=== PATIENT | female | born 1965 | race Caucasian/White ===

== ENCOUNTER 2020-01-28 08:39 | Outpatient (REF) | payer OTHER, SELFPAY ==
[2020-01-28 09:11] LABS: MANUAL DIFF FLAG NO
[2020-01-28 09:14] LABS: Basophils Percent Auto 0.8 % (0-2); Eosinophils Absolute Auto 0.1 X10*3/uL (0.0-0.4); Eosinophils Percent Auto 1.6 % (0-4); Imm Gran Abs Auto 0.01 X10*3/uL (0.00-0.03); Imm Gran Pct Auto 0.3 % (0.0-0.4); Lymphocytes Percent Auto 55.3 % (20-40); Mean Corpuscular HGB Conc 34.1 g/dl (31.0-35.0); Mean Corpuscular Hemoglobin 30.8 pg (27.0-33.0); Mean Corpuscular Volume 90.3 fL (80-98); Mean Platelet Volume 8.9 fL (9.4-12.3); Monocytes Absolute Auto 0.3 X10*3/uL (0.1-1.2); Monocytes Percent Auto 9.3 % (2-11); Neutrophils Absolute Auto 1.2 X10*3/uL (2.0-8.3); Neutrophils Percent Auto 32.7 % (45-73); Platelet Count 305 X10*3/uL (160-400); Red Blood Count 4.54 X10*6/uL (4.20-5.50); Red Cell Distribution Width 12.7 % (11.0-16.0); White Blood Count 3.7 X10*3/uL (4.8-10.8)
[2020-01-28 09:43] LABS: Alanine Aminotransferase 11 U/L (0-31); Albumin Level 4.4 g/dL (3.5-5.0); Alkaline Phosphatase 60 U/L (39-117); Anion Gap 11 (12-20); Aspartate Amino Transferase 15 U/L (5-31); Bilirubin Total 0.8 mg/dL (0.0-1.0); Blood Urea Nitrogen 14 mg/dL (9-16); Calcium 9.1 mg/dL (8.4-10.2); Carbon Dioxide 28 mmol/L (22-29); Chloride 105 mmol/L (96-108); Cholesterol 255 mg/dL; Estimated Glomerular Filt Rate > 60; Glucose Fasting 116 mg/dL (60-99); HDL Cholesterol 51 mg/dL; LDL Cholesterol Calculated 158 mg/dl; Potassium 4.6 mmol/l (3.3-5.1); Sodium 139 mmol/L (135-145); Total Protein 7.4 g/dL (6.5-8.0); Triglycerides 231 mg/dL
[2020-01-28 10:07] LABS: Vitamin D 25-OH Total 29.7 ng/mL (>30)
== END 2020-01-28 08:40 | disposition home or self-care (01) ==
LOC: HO.LAB 08:39
PROVIDERS: Absent Provider Internal Medicine Medical Oncology; PCP Internal Medicine; Visit Provider Internal Medicine
DX: E78.00 Pure hypercholesterolemia, unspecified (principal); K21.9 Gastro-esophageal reflux disease without esophagitis; E66.3 Overweight; D72.819 Decreased white blood cell count, unspecified; Z00.00 Encounter for general adult medical examination without abnormal findings
CPT/HCPCS: 36415; 80053; 80061; 82306; 85025

== ENCOUNTER 2020-02-02 10:16 | Outpatient (REF) | payer OTHER, SELFPAY ==
[2020-02-02 10:40] LABS: COVID-19 Test Negative (Negative); IDNOW Serial# 55D5AD1C
== END 2020-02-02 10:17 | disposition home or self-care (01) ==
LOC: HO.EMPCOV 10:16
PROVIDERS: PCP Internal Medicine; Visit Provider Internal Medicine
DX: Z20.828 Contact with and (suspected) exposure to other viral communicable diseases (principal)
CPT/HCPCS: 87635; C9803

== ENCOUNTER 2020-02-18 09:21 | Outpatient (REF) | payer OTHER, SELFPAY ==
[2020-02-18 09:40] LABS: COVID-19 Test Negative (Negative)
== END 2020-02-18 09:22 | disposition home or self-care (01) ==
LOC: HO.EMPCOV 09:21
PROVIDERS: PCP Internal Medicine; Visit Provider Internal Medicine
DX: Z20.822 Contact with and (suspected) exposure to COVID-19 (principal)
CPT/HCPCS: 36415; 87635; C9803

== ENCOUNTER 2020-03-03 14:03 | Outpatient (REF) | payer OTHER, SELFPAY ==
[2020-03-03 14:29] LABS: MANUAL DIFF FLAG NO
[2020-03-03 14:31] LABS: Basophils Percent Auto 0.9 % (0-2); Eosinophils Percent Auto 0.7 % (0-4); Hematocrit 38.7 % (37-47); Imm Gran Abs Auto 0.01 X10*3/uL (0.00-0.03); Imm Gran Pct Auto 0.2 % (0.0-0.4); Lymphocytes Absolute Auto 2.2 X10*3/uL (1.2-4.9); Lymphocytes Percent Auto 51.5 % (20-40); Mean Corpuscular HGB Conc 33.6 g/dl (31.0-35.0); Mean Corpuscular Hemoglobin 30.4 pg (27.0-33.0); Mean Corpuscular Volume 90.6 fL (80-98); Mean Platelet Volume 8.7 fL (9.4-12.3); Monocytes Absolute Auto 0.4 X10*3/uL (0.1-1.2); Monocytes Percent Auto 8.2 % (2-11); Neutrophils Absolute Auto 1.6 X10*3/uL (2.0-8.3); Neutrophils Percent Auto 38.5 % (45-73); Platelet Count 327 X10*3/uL (160-400); Red Blood Count 4.27 X10*6/uL (4.20-5.50); Red Cell Distribution Width 12.6 % (11.0-16.0); White Blood Count 4.3 X10*3/uL (4.8-10.8)
== END 2020-03-03 14:04 | disposition home or self-care (01) ==
LOC: HO.LAB 14:03
PROVIDERS: PCP Internal Medicine; Visit Provider Surgery
DX: R10.32 Left lower quadrant pain (principal)
CPT/HCPCS: 36415; 85025

== ENCOUNTER 2020-03-31 07:40 | Outpatient (REF) | payer OTHER, SELFPAY ==
--- NOTE | ~2020-03-31 | MM_ITS ---
EXAMINATION: MM SCREENING DIGITAL BREAST TOMOSYNTHESIS, BILATERAL CLINICAL INFORMATION: Screening. Asymptomatic. The lifetime risk of breast cancer based on the Tyrer-Cuzick Model is 10%. COMPARISON: Mammography: 06/06/2018, 05/07/2017, 03/06/2016 TECHNIQUE: Digital breast tomosynthesis is performed in both the craniocaudal and mediolateral oblique views along with computer-aided detection (CAD). Synthesized 2D images are generated from the tomosynthesis. FINDINGS: There are scattered areas of fibroglandular density (ACR BI-RADS breast composition Category b). There are no significant masses, abnormal calcifications, or other abnormalities. There is probable dermal lesion again seen overlying posterior medial left breast and intramammary node overlying the posterior 3:00 right breast. No significant changes. MM/MM tomosynthesis screening BI IMPRESSION: No mammographic evidence of malignancy. ASSESSMENT: BI-RADS 2: Benign RECOMMENDATION: Routine annual mammography screening. This patient's information was entered into a reminder system with a target due date for their next mammogram.
== END 2020-03-31 07:41 | disposition home or self-care (01) ==
LOC: HO.MAMMO 07:40
PROVIDERS: PCP Internal Medicine; Visit Provider Internal Medicine
DX: Z12.31 Encounter for screening mammogram for malignant neoplasm of breast (principal)
CPT/HCPCS: 77063; 77067

== ENCOUNTER 2020-04-11 13:56 | Emergency (ER) | payer OTHER, SELFPAY ==
--- NOTE | ~2020-04-11 | CT_ITS ---
EXAMINATION: CT ABDOMEN AND PELVIS WITH CONTRAST CLINICAL INFORMATION: Bilateral lower quadrant pain COMPARISON: Baseline 01/03/2018 TECHNIQUE: Multidetector volumetric images were obtained from the superior aspect of the liver through the pubic symphysis following administration 85 mL of Omnipaque 350 intravenous contrast. Sagittal and coronal reformatted images were obtained on the technologist's workstation. Oral contrast: No This CT examination was performed using dose optimization techniques as appropriate, variously including the following: *Automated exposure control *Adjustment of mA and/or kV according to patient size (this includes techniques or standardized protocols for targeted exams where dose is matched to indication/reason for exam; i.e. extremities or head) *Use of iterative reconstruction technique DLP: 552 mGy-cm FINDINGS: LUNG BASES: The visualized lung bases are unremarkable. 6.7 x 5.4 cm lobulated cystic lesion in the right cardiophrenic angle region most consistent with a pericardial cyst. Similar finding noted on baseline exam. LIVER, GALLBLADDER, AND BILIARY TREE: The liver is normal in size, shape, and attenuation. No focal hepatic lesion or biliary ductal dilatation is present. The gallbladder is unremarkable with no evidence of radiopaque gallstones, gallbladder wall thickening, or obvious pericholecystic inflammatory changes. PANCREAS: Unremarkable. SPLEEN: Unremarkable. ADRENAL GLANDS: Unremarkable. KIDNEYS AND URETERS: The kidneys are normal in size, shape, and attenuation. No hydronephrosis, hydroureter, or calculi seen. No perinephric stranding. BLADDER: Unremarkable. GASTROINTESTINAL TRACT: Large diverticula noted throughout the colon. No definite acute inflammatory changes measurable. No small bowel pathology. No fluid collection. ABDOMINAL WALL: No significant hernia is appreciated. LYMPH NODES: Normal. VASCULAR: Unremarkable. PELVIC VISCERA: Unremarkable. OSSEOUS STRUCTURES: Unremarkable. CT/CT abdomen pelvis w con IMPRESSION: Diverticulosis also be pronounced on the colon. No definite acute inflammatory changes appreciated. Correlate clinically. 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
[2020-04-11 14:05] VITALS: BP 171/94; PULSE 103; RESP 18; TEMP 37.2; O2SAT 99; BMI 57.9
--- NOTE | 2020-04-11 14:38 | ED.ABDPAIN ---
HPI - Abdominal Pain General Chief Complaint: Abdominal Pain Stated Complaint: ABD PAIN Time Seen by Provider: 04/11/20 14:23 Source: patient Mode of arrival: ambulatory Limitations: no limitations History of Present Illness HPI narrative: Patient comes emergency room complaining of abdominal pain for the last 2 hours, which is worse is in the lower quadrants bilaterally. Patient states that over the weekend she has had some mild abdominal discomfort, loose stools, nausea, no vomiting. Patient states that earlier this year in February, she was empirically treated for diverticulitis. Patient denies respiratory or UTI symptoms. No fever or chills. MD elicited complaint: abdominal pain Related Data Previous Rx's Medication Instructions Recorded metronidazole 500 mg tablet 500 mg PO Q8H #21 tab 03/03/20 sulfamethoxazole 800 1 tab PO Q12H #20 tab 03/03/20 mg-trimethoprim 160 mg tablet dicyclomine 20 mg PO TID #14 tab 04/11/20 tramadol 50 mg PO BID PRN #10 tab 04/11/20 Allergies Allergy/AdvReac Type Severity Reaction Status Date / Time Penicillins [PENICILLINS] Allergy Severe ANAPHYLAXIS Unverified 10/23/19 15:15 penicillin V Allergy Unknown anaphylaxis Verified 06/16/19 00:00 Review of Systems Review of Systems Constitutional : No Weight loss, No Fever, No Chills, No Night Sweats, No Fatigue, No Malaise ENT/Mouth : No Hearing loss, No Ear Pain, No Nasal Congestion, No Sinus Pain, No Hoarseness, No sore throat, No Rhinorrhea, No Swallowing Difficulty Eyes: No Eye Pain, No Swelling, No Redness, No Foreign Body, No Discharge, No Vision Changes Cardiovascular : No Chest Pain, No SOB, No Dyspnea on Exertion, No Orthopnea, No Edema, No Palpitations Respiratory : No Cough, No Sputum, No Wheezing, No Smoke Exposure, No Dyspnea Gastrointestinal : Complaining of Nausea, No Vomiting, complaining of loose stools, No Constipation, complaining of bilateral lower quadrant pain, No Hematochezia, No Melena Genitourinary : no irregular bleeding, No Dysuria, No Urinary Frequency, No Hematuria, No Urinary Incontinence, No Urgency, No Flank Pain, No Urinary Flow Changes, No Hesitancy Musculoskeletal : No joint pain, No Myalgias, No Joint Swelling Skin : No Skin Lesions, No rash Neuro : No Weakness, No Numbness, No Paresthesias, No Loss of Consciousness, No Dizziness, No Headache Psych : No Anxiety/Panic, No Depression, No SI/HI/AH/VH, No Social Issues, Heme/Lymph: No Bruising, No Bleeding,No Lymphadenopathy Endocrine : No Polyuria, No Polydipsia, No Temperature Intolerance Physical Exam Vital Signs: Vital Signs: Last Vital Signs Temp 98.9 F 04/11/20 14:05 Pulse 84 04/11/20 14:55 Resp 18 04/11/20 14:55 BP 148/72 H 04/11/20 14:55 Pulse Ox 97 04/11/20 14:55 Body Mass Index 57.9 Appearance: Alert. Oriented X3. Mild distress, in pain Eyes: Pupils equal, round and reactive to light. ENT: Pharynx normal. Neck: Normal inspection. Neck supple. No lymph nodes noted. No crepitus CVS: Normal heart rate and rhythm. Pulses normal. Normal S1 and S2 Respiratory: No respiratory distress. Breath sounds normal. No Wheezing. No rales Abdomen: Soft tender to palpation over the bilateral lower quadrants, worse on the left lower quadrant, No rigidity. No distention. Skin: Skin warm and dry. Normal skin color. Normal skin turgor. Extremities: No lower extremity edema. No lower extremity edema. No Lacerations. No Rash Neuro: Oriented X 3. No motor deficit. No sensory deficit. Moving all extermities. No slurred speech. Course Course Course Narrative: discussed the labs and imaging with the patient, no acute findings. Patient's white blood cell count is 4.[address] scan shows no acute findings. I discussed with the patient that this may be early diverticulitis versus an early SBO given her past medical history of surgeries. Sepsis is not suspected. MDM - Abdominal Pain Lab Data Result diagrams: 04/11/20 14:39 04/11/20 14:39 Labs: Lab Results 04/11/20 04/11/20 04/11/20 Range/Units 14:39 14:39 14:39 WBC 4.6 L (4.8-10.8) X10*3/uL RBC 4.46 (4.20-5.50) X10*6/uL Hgb 13.9 (12.0-16.0) g/dl Hct 39.7 (37-47) % MCV 89.0 (80-98) fL MCH 31.2 (27.0-33.0) pg MCHC 35.0 (31.0-35.0) g/dl RDW 12.7 (11.0-16.0) % Plt Count 299 (160-400) X10*3/uL MPV 8.9 L (9.4-12.3) fL Immature Gran % (Auto) 0.4 (0.0-0.4) % Neut % (Auto) 49.6 (45-73) % Lymph % (Auto) 40.1 H (20-40) % [place] % (Auto) 8.8 (2-11) % Eos % (Auto) 0.9 (0-4) % Baso % (Auto) 0.2 (0-2) % Lymph # (Auto) 1.9 (1.2-4.9) X10*3/uL [place] # (Auto) 0.4 (0.1-1.2) X10*3/uL Eos # (Auto) 0.0 (0.0-0.4) X10*3/uL Baso # (Auto) 0.0 (0.0-0.2) X10*3/uL Abs Immat Gran (auto) 0.02 (0.00-0.03) X10*3/uL Absolute Neuts (auto) 2.3 (2.0-8.3) X10*3/uL Absolute Nucleated RBC 0.000 (0.0-0.012) X10*3/uL Nucleated RBC % (auto) 0.0 (0.0-0.2) /100WBC Sodium 141 (135-145) mmol/L Potassium 3.8 (3.3-5.1) mmol/L Chloride 106 (96-108) mmol/L Carbon Dioxide 25 (22-29) mmol/L Anion Gap 14 (12-20) BUN 13 (9-16) mg/dL Creatinine 0.82 (0.5-1.4) mg/dL Estim Creat Clear Calc 122.0 Estimated GFR > 60 Random Glucose 116 H (60-115) mg/dL Calcium 9.0 (8.4-10.2) mg/dL Total Bilirubin 0.8 (0.0-1.0) mg/dL Direct Bilirubin 0.3 (0.0-0.5) mg/dL AST 15 (5-31) U/L ALT 13 (0-31) U/L Alkaline Phosphatase 80 D (39-117) U/L Total Protein 7.4 (6.5-8.0) g/dL Albumin 4.5 (3.5-5.0) g/dL Lipase 33 (8-78) U/L Urine Color Urine Appearance Urine pH (5.0-8.0) Ur Specific [place] (1.005-1.025) Urine Protein (NEG-TRACE) MG/DL Urine Glucose (UA) (NEG) MG/DL Urine Ketones (NEG) MG/DL Urine Blood (NEG) Urine Nitrite (NEG) Ur Leukocyte Esterase (NEG) 04/11/20 Range/Units 16:01 WBC (4.8-10.8) X10*3/uL RBC (4.20-5.50) X10*6/uL Hgb (12.0-16.0) g/dl Hct (37-47) % MCV (80-98) fL MCH (27.0-33.0) pg MCHC (31.0-35.0) g/dl RDW (11.0-16.0) % Plt Count (160-400) X10*3/uL MPV (9.4-12.3) fL Immature Gran % (Auto) (0.0-0.4) % Neut % (Auto) (45-73) % Lymph % (Auto) (20-40) % [place] % (Auto) (2-11) % Eos % (Auto) (0-4) % Baso % (Auto) (0-2) % Lymph # (Auto) (1.2-4.9) X10*3/uL [place] # (Auto) (0.1-1.2) X10*3/uL Eos # (Auto) (0.0-0.4) X10*3/uL Baso # (Auto) (0.0-0.2) X10*3/uL Abs Immat Gran (auto) (0.00-0.03) X10*3/uL Absolute Neuts (auto) (2.0-8.3) X10*3/uL Absolute Nucleated RBC (0.0-0.012) X10*3/uL Nucleated RBC % (auto) (0.0-0.2) /100WBC Sodium (135-145) mmol/L Potassium (3.3-5.1) mmol/L Chloride (96-108) mmol/L Carbon Dioxide (22-29) mmol/L Anion Gap (12-20) BUN (9-16) mg/dL Creatinine (0.5-1.4) mg/dL Estim Creat Clear Calc Estimated GFR Random Glucose (60-115) mg/dL Calcium (8.4-10.2) mg/dL Total Bilirubin (0.0-1.0) mg/dL Direct Bilirubin (0.0-0.5) mg/dL AST (5-31) U/L ALT (0-31) U/L Alkaline Phosphatase (39-117) U/L Total Protein (6.5-8.0) g/dL Albumin (3.5-5.0) g/dL Lipase (8-78) U/L Urine Color YELLOW Urine Appearance CLEAR Urine pH 5.5 (5.0-8.0) Ur Specific [place] 1.010 (1.005-1.025) Urine Protein NEG (NEG-TRACE) MG/DL Urine Glucose (UA) NEG (NEG) MG/DL Urine Ketones NEG (NEG) MG/DL Urine Blood NEG (NEG) Urine Nitrite NEG (NEG) Ur Leukocyte Esterase NEG (NEG) Imaging Data CT scan - abdomen: Radiologist's impression: FINDINGS: LUNG BASES: The visualized lung bases are unremarkable. 6.7 x 5.4 cm lobulated cystic lesion in the right cardiophrenic angle region most consistent with a pericardial cyst. Similar finding noted on baseline exam. LIVER, GALLBLADDER, AND BILIARY TREE: The liver is normal in size, shape, and attenuation. No focal hepatic lesion or biliary ductal dilatation is present. The gallbladder is unremarkable with no evidence of radiopaque gallstones, gallbladder wall thickening, or obvious pericholecystic inflammatory changes. PANCREAS: Unremarkable. SPLEEN: Unremarkable. ADRENAL GLANDS: Unremarkable. KIDNEYS AND URETERS: The kidneys are normal in size, shape, and attenuation. No hydronephrosis, hydroureter, or calculi seen. No perinephric stranding. BLADDER: Unremarkable. GASTROINTESTINAL TRACT: Large diverticula noted throughout the colon. No definite acute inflammatory changes measurable. No small bowel pathology. No fluid collection. ABDOMINAL WALL: No significant hernia is appreciated. LYMPH NODES: Normal. VASCULAR: Unremarkable. PELVIC VISCERA: Unremarkable. OSSEOUS STRUCTURES: Unremarkable. CT/CT abdomen pelvis w con IMPRESSION: Diverticulosis also be pronounced on the colon. No definite acute inflammatory changes appreciated. Correlate clinically. 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 Discharge Plan Discharge Clinical Impression: Left lower quadrant pain Patient Disposition: Home, Self-Care Instructions: Abdominal Pain (ED) Additional Instructions: Please follow-up with your primary care physician tomorrow. If you have any worsening or new symptoms, please return to the emergency room or call 911 Prescriptions: New dicyclomine 20 mg tablet 20 mg PO TID Qty: 14 RF: 0 tramadol 50 mg tablet 50 mg PO BID PRN (Reason: pain) Qty: 10 RF: 0 No Action metronidazole 500 mg tablet 500 mg PO Q8H Qty: 21 RF: 0 sulfamethoxazole-trimethoprim [Bactrim DS] 800-160 mg tablet 1 tab PO Q12H Qty: 20 RF: 0 PMFSH Past Medical History Medical History (Updated 04/11/20 @ 16:40 by Rola Briones MD) Diverticula of intestine Surgical History (Updated 04/11/20 @ 14:41 by Rola Briones MD) H/O: hysterectomy History of cholecystectomy Hx of appendectomy Social History Social History Alcohol intake: never Smoking Status: Never smoker Use of substances other than those prescribed or required for medical reasons: No Advance Directives: No Advance Directives Information Provided: Yes
[2020-04-11 14:40] VITALS: RESP 20
[2020-04-11] MEDS: Morphine Sulfate 4 MG/ML CARTRIDGE IVPUSH (14:40)
[2020-04-11] MEDS: ondansetron HCL 4 MG/2 ML VIAL IVPUSH (14:40)
[2020-04-11] MEDS: 0.9 % Sodium Chloride 1,000 ML 999 ML IVCONT (14:40)
[2020-04-11 14:48] LABS: MANUAL DIFF FLAG NO
[2020-04-11 14:50] LABS: Basophils Percent Auto 0.2 % (0-2); Eosinophils Percent Auto 0.9 % (0-4); Hematocrit 39.7 % (37-47); Hemoglobin 13.9 g/dl (12.0-16.0); Imm Gran Abs Auto 0.02 X10*3/uL (0.00-0.03); Imm Gran Pct Auto 0.4 % (0.0-0.4); Lymphocytes Absolute Auto 1.9 X10*3/uL (1.2-4.9); Lymphocytes Percent Auto 40.1 % (20-40); Mean Corpuscular Hemoglobin 31.2 pg (27.0-33.0); Mean Platelet Volume 8.9 fL (9.4-12.3); Monocytes Absolute Auto 0.4 X10*3/uL (0.1-1.2); Monocytes Percent Auto 8.8 % (2-11); Neutrophils Absolute Auto 2.3 X10*3/uL (2.0-8.3); Neutrophils Percent Auto 49.6 % (45-73); Platelet Count 299 X10*3/uL (160-400); Red Blood Count 4.46 X10*6/uL (4.20-5.50); Red Cell Distribution Width 12.7 % (11.0-16.0); White Blood Count 4.6 X10*3/uL (4.8-10.8)
[2020-04-11 14:55] VITALS: BP 148/72; PULSE 84; RESP 18; O2SAT 97
[2020-04-11 15:15] LABS: Lipase 33 U/L (8-78)
[2020-04-11 15:16] LABS: Alanine Aminotransferase 13 U/L (0-31); Albumin Level 4.5 g/dL (3.5-5.0); Alkaline Phosphatase 80 U/L (39-117); Anion Gap 14 (12-20); Aspartate Amino Transferase 15 U/L (5-31); Bilirubin Direct 0.3 mg/dL (0.0-0.5); Bilirubin Total 0.8 mg/dL (0.0-1.0); Blood Urea Nitrogen 13 mg/dL (9-16); Carbon Dioxide 25 mmol/L (22-29); Chloride 106 mmol/L (96-108); Estimated Glomerular Filt Rate > 60; Glucose Random 116 mg/dL (60-115); Potassium 3.8 mmol/L (3.3-5.1); Sodium 141 mmol/L (135-145); Total Protein 7.4 g/dL (6.5-8.0)
[2020-04-11] MEDS: iohexoL 350 MG/ML 75 ML INFUS..BTL IV (15:48)
--- NOTE | 2020-04-11 15:58 | PC.NURSE ---
return from ct scan, pain worsening again, provider aware. ambulating to bathroom w steady gait for ua spec.
[2020-04-11 16:11] LABS: Glucose Urine UA NEG (NEG); Leukocyte Esterase Urine NEG (NEG); Nitrite Urine NEG (NEG); PH 5.5 (5.0-8.0); Urine Blood NEG (NEG); Urine Ketones NEG (NEG); Urine Protein NEG (NEG-TRACE)
[2020-04-11 16:12] LABS: Appearance Urine CLEAR; Color Urine YELLOW
[2020-04-11] MEDS: HYDROmorphone HCl 1 MG/ML SYRINGE IVPUSH (16:29)
== END 2020-04-11 17:05 | disposition home or self-care (01) ==
PROVIDERS: Emergency Provider Emergency Medicine; PCP Internal Medicine
DX: R10.32 Left lower quadrant pain (principal); Z79.899 Other long term (current) drug therapy
CPT/HCPCS: 36415; 74177; 80048; 80076; 81003; 83690; 85025; 96365; 96375; 99284; J1170; J2270; J2405; Q9967

== ENCOUNTER → 2020-04-20 13:51 | Outpatient (BNVA) | payer OTHER, SELFPAY | PROVIDERS: PCP Internal Medicine; Visit Provider Internal Medicine Gastroenterology ==

== ENCOUNTER 2020-06-04 06:20 | Day surgery (SDC) | payer OTHER, SELFPAY ==
[2020-06-01 08:33] VITALS: BMI 26.4
--- NOTE | 2020-06-03 09:28 | HO.ANESPROP2 ---
Documented by User: Zulma Flores 06/03/20 09:29 HPI - Anesthesia Eval Consult details Narrative: 55yo F for Colonoscopy PMFSH Active Problems Active Problems: All Active Problems (Updated 06/01/20 @ 08:39 by Savanna Mccallum) Left lower quadrant pain (Acute) Diverticulosis (Acute) Colon cancer screening (Acute) Change in bowel habits (Acute) Past Medical History Medical History COVID-19 vaccine administered Diverticula of intestine Family history of adverse effect to anesthesia History of diverticulosis History of endometrial biopsy History of palpitations History of postoperative nausea and vomiting Family History Family History Mother Diverticulosis HTN (hypertension) Father HTN (hypertension) Brother HTN (hypertension) Surgical History Surgical History H/O colonoscopy H/O: H/O: hysterectomy History of cholecystectomy Hx of appendectomy Social History Social History Household Members: Spouse and Children Are you a primary complex care nurse practitioner to a significant other at home: No Do you presently have visiting nurse or other home services: No Alcohol intake: current Alcohol intake frequency: holidays/special occasions only Smoking Status: Never smoker Use of substances other than those prescribed or required for medical reasons: No Have you been hit, kicked, punched, or otherwise hurt by someone within the past year? If so, by whom?: No Advance Directives Information Provided: No Recently lost weight without trying: No Meds Allergies Allergy/AdvReac Type Severity Reaction Status Date / Time Penicillins [PENICILLINS] Allergy Severe ANAPHYLAXIS Verified 06/04/20 06:48 levofloxacin [From Levaquin] Allergy Intermediate rash Verified 06/04/20 06:48 sulfamethoxazole Allergy Intermediate rash Verified 06/04/20 06:48 [From Bactrim] trimethoprim [From Bactrim] Allergy Intermediate rash Verified 06/04/20 06:48 Home Medications Medication Instructions Recorded Confirmed Last Taken Type famotidine [Pepcid AC] 20 mg PO DAILY PRN 06/01/20 06/01/20 Unknown History melatonin 5 mg PO BEDTIME 06/01/20 06/01/20 Unknown History Exam Exam Date and Time: June 03, [id number] Height,Weight and Vital Signs: Height 5 ft 5 in Weight 72.121 kg Assessment and Plan Assessment Anesthesia Assessment: Chart Reviewed Documented by User: Eunice Paul 06/04/20 07:46 [facility] Past Medical History Medical History COVID-19 vaccine administered Diverticula of intestine Family history of adverse effect to anesthesia History of diverticulosis History of endometrial biopsy History of palpitations History of postoperative nausea and vomiting Family History Family History Mother Diverticulosis HTN (hypertension) Father HTN (hypertension) Brother HTN (hypertension) Surgical History Surgical History H/O colonoscopy H/O: H/O: hysterectomy History of cholecystectomy Hx of appendectomy Social History Social History Household Members: Spouse and Children Are you a primary complex care nurse practitioner to a significant other at home: No Do you presently have visiting nurse or other home services: No Alcohol intake: current Alcohol intake frequency: holidays/special occasions only Smoking Status: Never smoker Use of substances other than those prescribed or required for medical reasons: No Have you been hit, kicked, punched, or otherwise hurt by someone within the past year? If so, by whom?: No Advance Directives Information Provided: No Recently lost weight without trying: No Meds Allergies Allergy/AdvReac Type Severity Reaction Status Date / Time Penicillins [PENICILLINS] Allergy Severe ANAPHYLAXIS Verified 06/04/20 06:48 levofloxacin [From Levaquin] Allergy Intermediate rash Verified 06/04/20 06:48 sulfamethoxazole Allergy Intermediate rash Verified 06/04/20 06:48 [From Bactrim] trimethoprim [From Bactrim] Allergy Intermediate rash Verified 06/04/20 06:48 Home Medications Medication Instructions Recorded Confirmed Last Taken Type famotidine [Pepcid AC] 20 mg PO DAILY PRN 06/01/20 06/01/20 Unknown History melatonin 5 mg PO BEDTIME 06/01/20 06/01/20 Unknown History Exam Airway Mallampati Class: I TM Dist: >3cm Loose/Missing/Broken Teeth: No Heart: RRR Lungs: CTA Assessment and Plan Assessment Anesthesia Assessment: Anesthesia Plan Discussed and Chart Reviewed Final Anesthetic Review NPO: Yes ASA Class: II Final Preanesthetic Review: Meds/Allgs Chart Reviewed, Consent Obtained/Reviewed and Anes Risks/Benef Reviewed Patient Risk: Low Procedure Risk: Low Anesthetic Plan Anesthetic Plan: MAC: Disposition: Standard PACU
[2020-06-04 06:49] VITALS: BP 120/79; PULSE 98; RESP 18; TEMP 36.7; O2SAT 95
[2020-06-04] MEDS: Lactated Ringers 1,000 ML 100 ML IVCONT (07:01)
--- NOTE | 2020-06-04 07:11 | P.OP_ITS ---
Operative Note Operative Note Date of Service: 06/04/20 Narrative: Pre-op diagnosis: Colon cancer screening, change in bowel habits, abnormal CT scan of colon Post-op diagnosis: other (Diverticulosis, hemorrhoids) Procedure: COLONOSCOPY TO CECUM/TI WITH BIOPSIES Consent: Indications for the procedure and potential complications of bleeding, perforation, reaction to medications and missed diagnosis were discussed with the patient and informed consent was obtained. Instrument: Olympus PCF H 190 L variable stiffness pediatric colonoscope Monitoring: Vital signs and clinical assessment, intermittent blood pressure monitoring, continuous EKG monitoring, Pulse oximetry and Carbon Dioxide monitoring were done throughout the procedure. Colon withdrawl time was 17 minutes. Procedure: The patient was placed in the left lateral decubitis position and pre-procedure medications were administered. After a digital rectal examination of the ano-rectum, the video colonoscope was inserted into the rectum and advanced through the colon to the cecum. The colonoscope was slowly withdrawn in a retrograde panoramic fashion and the colon mucosa was carefully examined including a retroflexed view of the rectum. Findings and interventions are described below. Procedure Difficulty: There was a sharp turn at 35 to 40 cms which was navigated with some difficulty. No maneuvers were required Findings: Terminal Ileum: Distal 10 cms was examined and appeared normal - random biopsies were obtained Cecum: Normal Ascending Colon: Normal Transverse Colon: Normal Descending Colon: Normal Sigmoid Colon: Moderate diverticulosis Rectum: Normal Ano-rectum: Small internal hemorrhoids Colon preparation: Excellent Impression and Post Procedure Diagnosis: Colonoscopy Findings: No polyps were detected. Normal TI - random biopsies were obtained. Random biopsies obtained from right and left colon. Moderate diverticulosis seen in the []colon Moderate hemorrhoids on retroflexed exam. Plan: Await pathology results A letter will be sent to the patient with biopsy results. Repeat Colonoscopy interval based on path results - in 10 years if biopsies are normal. Above findings were reviewed with the patient and diverticulosis handouts were given in the discharge area Surgeon: Zenaida Abrams MD Anesthesia: MAC (Dr Paul) Insurance Examining Clerk: Francisco Robert Estimated blood loss (mL): 0 Pathology: other (A- IT BXS R/O IBD B- RIGHT COLON BXS C- LEFT SIDE COLON BXS) Condition: stable Disposition: PACU
--- NOTE | 2020-06-04 07:11 | MHC.SHP ---
Pre-Procedural Eval Section A The patient is an INPATIENT: No The History & Physical has been completed within 30 days and I have reviewed it.: No Section B Chief Complaint: Screening Details of Present Illness: Colon Cancer screening, history of abdominal pain and diarrhea, abnormal CT scan of the colon Relevant Family History (Specify if Yes): No Relevant Social History: None Present Medications: see Short Stay Collaborative assessment Medical History: Significant History (Change in bowel habits) History of Previous Operations: Relevant previous surgery/procedure and date(s) (H/O: H/O: hysterectomy History of cholecystectomy Hx of appendectomy) Allergies: Allergies Allergy/AdvReac Type Severity Reaction Status Date / Time Penicillins [PENICILLINS] Allergy Severe ANAPHYLAXIS Verified 06/04/20 06:48 levofloxacin [From Levaquin] Allergy Intermediate rash Verified 06/04/20 06:48 sulfamethoxazole Allergy Intermediate rash Verified 06/04/20 06:48 [From Bactrim] trimethoprim [From Bactrim] Allergy Intermediate rash Verified 06/04/20 06:48 Review of Systems Sugical H&P ROS: Negative: Constitution, Cardiovascular and Respiratory and Yes, Specify: Gastrointestinal (change in bowel habits) Exam Surgical H&P Exam: Normal: Heart, Normal: Lungs, Normal: Extremities and Normal: Abdomen Plan Diagnosis/Plan: Unchanged I have reviewed the history and physical and performed a pertinent physical examination on my patient. No changes have occurred unless specified.
[2020-06-04 08:05] VITALS: BP 118/68; PULSE 86; RESP 18; TEMP 37.3; O2SAT 98
[2020-06-04 08:20] VITALS: BP 127/78; PULSE 79; RESP 18; TEMP 36.9; O2SAT 98
== END 2020-06-04 08:50 | disposition home or self-care (01) ==
PROVIDERS: PCP Internal Medicine; Visit Provider Internal Medicine Gastroenterology
PROC: 0DJD8ZZ Inspection of Lower Intestinal Tract, Via Natural or Artificial Opening Endoscopic (ICD-10-PCS; CPT 45378; principal; 2020-06-04 07:30)
DX: Z12.11 Encounter for screening for malignant neoplasm of colon (principal); K57.30 Diverticulosis of large intestine without perforation or abscess without bleeding; K64.8 Other hemorrhoids; Z90.49 Acquired absence of other specified parts of digestive tract; Z79.899 Other long term (current) drug therapy; Z88.0 Allergy status to penicillin; Z88.2 Allergy status to sulfonamides
CPT/HCPCS: 45380; 88305

== ENCOUNTER → 2020-06-16 09:25 | Outpatient (BNVA) | payer OTHER, SELFPAY | PROVIDERS: PCP Internal Medicine; Visit Provider Obstetrics & Gynecology | DX: Z01.419 Encounter for gynecological examination (general) (routine) without abnormal findings (principal); R10.32 Left lower quadrant pain; N95.2 Postmenopausal atrophic vaginitis | CPT/HCPCS: 81003 ==

== ENCOUNTER 2020-06-23 15:58 | Outpatient (REF) | payer OTHER, SELFPAY ==
--- NOTE | ~2020-06-23 | US_ITS ---
EXAMINATION: US PELVIS COMPLETE US TRANSVAGINAL . CLINICAL INFORMATION: Left lower quadrant pain. History of hysterectomy. COMPARISON: Ultrasound pelvis 07/16/2013. TECHNIQUE: Transabdominal and transvaginal vaginal imaging of pelvis is performed. FINDINGS: The uterus has been surgically removed. The right ovary measures 2.5 x 1.6 x 1.7 cm and volume 3.0 mL. No focal lesion is seen. Previously, the right ovary measured 1.9 x 1.4 x 2.1 cm. The left ovary measures 1.9 x 1.6 x 1.2 cm and volume 2.0 mL. No focal lesion is seen. Previously, the left ovary measured 2.2 x 1.3 x 1.6 cm. There is no adnexal mass. There is no free fluid. US/US pelvic complete IMPRESSION: Unremarkable ovaries. The uterus has been surgically removed. There is no free fluid in the cul-de-sac.
--- NOTE | ~2020-06-23 | US_ITS ---
EXAMINATION: US PELVIS COMPLETE US TRANSVAGINAL . CLINICAL INFORMATION: Left lower quadrant pain. History of hysterectomy. COMPARISON: Ultrasound pelvis 07/16/2013. TECHNIQUE: Transabdominal and transvaginal vaginal imaging of pelvis is performed. FINDINGS: The uterus has been surgically removed. The right ovary measures 2.5 x 1.6 x 1.7 cm and volume 3.0 mL. No focal lesion is seen. Previously, the right ovary measured 1.9 x 1.4 x 2.1 cm. The left ovary measures 1.9 x 1.6 x 1.2 cm and volume 2.0 mL. No focal lesion is seen. Previously, the left ovary measured 2.2 x 1.3 x 1.6 cm. There is no adnexal mass. There is no free fluid. US/US transvaginal IMPRESSION: Unremarkable ovaries. The uterus has been surgically removed. There is no free fluid in the cul-de-sac.
== END 2020-06-23 15:59 | disposition home or self-care (01) ==
LOC: HO.US 15:58
PROVIDERS: Visit Provider Obstetrics & Gynecology
DX: R10.32 Left lower quadrant pain (principal)
CPT/HCPCS: 76830; 76856

== ENCOUNTER → 2020-06-30 10:59 | Outpatient (BNVA) | payer OTHER, SELFPAY | PROVIDERS: PCP Internal Medicine; Visit Provider Obstetrics & Gynecology ==

== ENCOUNTER 2020-07-28 09:23 | Outpatient (REF) | payer OTHER, SELFPAY ==
[2020-07-28 10:12] LABS: MANUAL DIFF FLAG NO
[2020-07-28 10:22] LABS: Basophils Percent Auto 0.9 % (0-2); Eosinophils Percent Auto 0.9 % (0-4); Hemoglobin 13.2 g/dl (12.0-16.0); Lymphocytes Absolute Auto 1.8 X10*3/uL (1.2-4.9); Lymphocytes Percent Auto 52.7 % (20-40); Mean Corpuscular HGB Conc 33.8 g/dl (31.0-35.0); Mean Corpuscular Hemoglobin 30.6 pg (27.0-33.0); Mean Corpuscular Volume 90.5 fL (80-98); Mean Platelet Volume 9.1 fL (9.4-12.3); Monocytes Absolute Auto 0.3 X10*3/uL (0.1-1.2); Monocytes Percent Auto 9.2 % (2-11); Neutrophils Absolute Auto 1.3 X10*3/uL (2.0-8.3); Neutrophils Percent Auto 36.3 % (45-73); Platelet Count 310 X10*3/uL (160-400); Red Blood Count 4.31 X10*6/uL (4.20-5.50); Red Cell Distribution Width 12.9 % (11.0-16.0); White Blood Count 3.5 X10*3/uL (4.8-10.8)
[2020-07-28 10:43] LABS: Alanine Aminotransferase 14 U/L (0-31); Albumin Level 4.4 g/dL (3.5-5.0); Alkaline Phosphatase 71 U/L (39-117); Anion Gap 13 (12-20); Aspartate Amino Transferase 23 U/L (5-31); Blood Urea Nitrogen 12 mg/dL (9-16); Calcium 9.4 mg/dL (8.4-10.2); Carbon Dioxide 26 mmol/L (22-29); Chloride 106 mmol/L (96-108); Estimated Glomerular Filt Rate > 60; Glucose Random 115 mg/dL (60-115); Potassium 4.6 mmol/L (3.3-5.1); Sodium 140 mmol/L (135-145); Total Protein 7.2 g/dL (6.5-8.0)
== END 2020-07-28 09:24 | disposition home or self-care (01) ==
LOC: HO.LAB 09:23
PROVIDERS: PCP Internal Medicine; Visit Provider Internal Medicine Medical Oncology
DX: D72.819 Decreased white blood cell count, unspecified (principal)
CPT/HCPCS: 36415; 80053; 85025

== ENCOUNTER → 2020-10-12 09:31 | Outpatient (BNVA) | payer OTHER, SELFPAY | PROVIDERS: PCP Internal Medicine; Referring Provider Internal Medicine; Visit Provider Internal Medicine Cardiovascular Disease ==

== ENCOUNTER → 2020-10-13 10:22 | Outpatient (REF) | payer OTHER, SELFPAY ==
--- NOTE | 2020-10-13 10:25 | CA_ITS ---
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 The calculated ejection fraction is 62% by biplane method. - No obvious valvular pathology seen on this study. - No evidence of pericardial cyst. Findings Left Ventricle Normal left ventricular cavity size. There is normal left ventricular wall thickness. The left ventricular systolic function is normal. The calculated ejection fraction is 62% by biplane method. There is no evidence of regional wall motion abnormalities. Diastolic function is normal for age. Right Ventricle Normal right ventricular cavity size and systolic function. Atria Both atria are normal in size. Aortic Valve There is a normal trileaflet aortic valve. There is no aortic valve stenosis. There is no aortic valve regurgitation. Mitral Valve The mitral valve appears normal. There is no mitral valve regurgitation. There is no mitral valve stenosis. Pulmonic Valve The pulmonic valve was not well visualized. Tricuspid Valve Normal tricuspid valve structure. There is trace tricuspid valve regurgitation. The pulmonary artery systolic pressure is normal. Great Vessels The aortic annulus, sinuses of valsalva, and asc aorta are normal in size. Venous The inferior vena cava is normal in size and collapses greater than 50% with inspiration. Pericardium/Pleural There is no evidence of pericardial effusion. Prior Study Comparison No significant change compared to prior study dated: 11/21/2013. Recommendations, Care & Conclusions No obvious valvular pathology seen on this study. Measurements 2D Linear Measurements IVSd: 1.01 0.6-0.9/0.6-1.0 cm LVIDd: 3.40 3.9-5.3/4.2-5.9 cm LVIDd Index: 1.87 2.4-3.2/2.2-3.1 cm/m2 LVIDs: 2.42 2.0-3.6 cm LVPWd: 0.72 0.7-1.1 cm Ao Root: 2.90 2.1-3.5 cm LA Diam: 2.90 2.7-3.8/3.0-4.0 cm LAIDs Index: 1.59 1.5-2.3 cm/m2 LV Mass: 99.78 67-162/88-224 g LV Mass Index: 54.82 43-95/49-115 g/m2 LVOT Diam: 2.00 3.0+(-)1.3 cm 2D Systolic Function EF 4C: 52.60 >55% EF 2C: 71.50 >55% EF BiP: 62.30 >55% Mitral Valve MV Pk E: 0.84 MV PK A: 0.85 MV Decel Time: 193.00 E/A: 1.00 E'Lateral: 12.40 E'Medial: 9.14 E/E' Med: 9.20 E/E' Lat: 6.80 PHT: 57.00 MVA PHT: 3.86 Decel [place]: 4.35 Aortic Valve AoV Pk Diogenes: 1.42 AoV Mn Diogenes: 0.98 AoV VTI: 0.28 AoV Pk Grad: 8.00 Aov Mn Grad: 4.00 SARIAH Cont.VTI: 2.72 LVOT LVOT Pk Diogenes: 1.17 LVOT Mn Diogenes: 0.81 LVOT VTI: 0.24 LVOT Pk Grad: 5.00 LVOT Mn Grad: 3.00 LVOT Diam: 2.00 LVOT Area: 3.14 Diastolic Function MV Pk E: 0.84 MV Pk A: 0.85 E/A: 1.00 E'Medial: 9.14 E/E' Med: 9.20 E' Laterial: 12.40 E/E' Lat: 6.80 Right Ventricle TAPSE (mm): 1.81 TVS' Diogenes: 14.40 Tricuspid Valve TR Pk Diogenes: 1.93 TR Pk Grad: 15.00 RA Press: 3.00 RVSP: 18.00 Great Vessels Aorta Ao Root-2D: 2.90 2.0-3.7 cm Ao Asc: 2.90 2.1-3.4 cm Ao Arch: 2.50 Updated in Other Vendor System with Status of Final Jose Denney MD electronically signed on 10/15/2020 12:31:15 PM with status of Final
== END ==
LOC: HO.CARD 10:22
PROVIDERS: PCP Internal Medicine; Visit Provider Internal Medicine Cardiovascular Disease
DX: Q24.8 Other specified congenital malformations of heart (principal)
CPT/HCPCS: 93005; 93306

== ENCOUNTER 2020-10-26 10:09 | Outpatient (REF) | payer OTHER, SELFPAY ==
[2020-10-26 11:11] LABS: Anion Gap 12 (12-20); Blood Urea Nitrogen 13 mg/dL (9-16); Calcium 9.5 mg/dL (8.4-10.2); Carbon Dioxide 27 mmol/L (22-29); Chloride 106 mmol/L (96-108); Estimated Glomerular Filt Rate > 60; Glucose Random 112 mg/dL (60-115); Potassium 4.5 mmol/L (3.3-5.1); Sodium 140 mmol/L (135-145)
== END 2020-10-26 10:10 | disposition home or self-care (01) ==
LOC: HO.LAB 10:09
PROVIDERS: PCP Internal Medicine; Visit Provider Internal Medicine Cardiovascular Disease
DX: Q24.8 Other specified congenital malformations of heart (principal)
CPT/HCPCS: 36415; 80048

== ENCOUNTER 2020-10-28 08:47 | Outpatient (REF) | payer OTHER, SELFPAY ==
--- NOTE | ~2020-10-28 | CT_ITS ---
EXAMINATION: CT CHEST WITHOUT AND WITH CONTRAST CLINICAL INFORMATION: Congenital malformation of the heart COMPARISON: Abdominal pelvic CT April [address] colonoscopy exam December 2017 TECHNIQUE: Multidetector volumetric CT imaging of the chest was obtained before and after the administration of 65 mL of Omnipaque 350 intravenous contrast without immediate adverse reactions. Axial MIP volume rendering provided. Sagittal and coronal reformatted images were obtained. This CT examination was performed using dose optimization techniques as appropriate, variously including the following: *Automated exposure control *Adjustment of mA and/or kV according to patient size (this includes techniques or standardized protocols for targeted exams where dose is matched to indication/reason for exam; i.e. extremities or head) *Use of iterative reconstruction technique DLP: 219 mGy-cm FINDINGS: LUNGS: The lungs are clear with no evidence of inflammation or nodules. MEDIASTINUM: There is a 5 x 6 cm low-attenuation lesion in the right cardiophrenic angle region. Hounsfield units without contrast measure 8. Hounsfield units post-IV contrast measure 13 suggestive of a nonenhancing simple cyst This is unchanged from prior exams and probably represents a pericardial or bronchogenic cyst. The mediastinum is otherwise normal. PLEURA: There is no pleural effusion. No pleural mass or thickening. AXILLA: No lymphadenopathy. UPPER ABDOMEN: The gallbladder has been removed. OSSEOUS STRUCTURES: Unremarkable. CT/CT chest wo/w con IMPRESSION: Stable 5 x 6 cm cystic lesion in the right cardiophrenic angle region probably representing a pericardial or bronchogenic cyst.
[2020-10-28] MEDS: iohexoL 350 MG/ML 100 ML INFUS..BTL 65 ML IV (09:38)
== END 2020-10-28 08:48 | disposition home or self-care (01) ==
LOC: HO.CT 08:47
PROVIDERS: Visit Provider Internal Medicine Cardiovascular Disease
DX: Q24.8 Other specified congenital malformations of heart (principal)
CPT/HCPCS: 71270; Q9967

== ENCOUNTER 2021-01-26 12:51 | Outpatient (REF) | payer OTHER, SELFPAY ==
[2021-01-26 13:03] LABS: MANUAL DIFF FLAG NO
[2021-01-26 13:54] LABS: Basophils Percent Auto 0.9 % (0-2); Eosinophils Percent Auto 0.7 % (0-4); Hematocrit 39.4 % (37.0-47.0); Hemoglobin 13.6 g/dl (12.0-16.0); Lymphocytes Absolute Auto 1.9 X10*3/uL (1.2-4.9); Lymphocytes Percent Auto 43.9 % (20-40); Mean Corpuscular HGB Conc 34.5 g/dl (31.0-35.0); Mean Corpuscular Hemoglobin 31.5 pg (27.0-33.0); Mean Corpuscular Volume 91.2 fL (80.0-98.0); Mean Platelet Volume 9.2 fL (9.4-12.3); Monocytes Absolute Auto 0.3 X10*3/uL (0.1-1.2); Neutrophils Absolute Auto 2.1 x10*3/uL (2.0-8.3); Neutrophils Percent Auto 47.5 % (45-73); Platelet Count 346 X10*3/uL (160-400); Red Blood Count 4.32 X10*6/uL (4.20-5.50); Red Cell Distribution Width 12.3 % (11.0-16.0); White Blood Count 4.4 X10*3/uL (4.8-10.8)
[2021-01-26 14:34] LABS: Alanine Aminotransferase 16 U/L (0-31); Albumin Level 4.6 g/dL (3.5-5.0); Alkaline Phosphatase 64 U/L (39-117); Anion Gap 12 (12-20); Aspartate Amino Transferase 17 U/L (5-31); Bilirubin Total 0.9 mg/dL (0.0-1.0); Blood Urea Nitrogen 11 mg/dL (9-16); Calcium 10.1 mg/dL (8.4-10.2); Carbon Dioxide 27 mmol/L (22-29); Chloride 108 mmol/L (96-108); Estimated Glomerular Filt Rate > 60; Glucose Random 114 mg/dL (60-115); Potassium 4.4 mmol/L (3.3-5.1); Sodium 143 mmol/L (135-145); Total Protein 7.6 g/dL (6.5-8.0)
== END 2021-01-26 12:52 | disposition home or self-care (01) ==
LOC: HO.LAB 12:51
PROVIDERS: PCP Internal Medicine; Visit Provider Internal Medicine Medical Oncology
DX: D72.819 Decreased white blood cell count, unspecified (principal)
CPT/HCPCS: 36415; 80053; 85025

== ENCOUNTER 2021-04-12 13:40 | Outpatient (REF) | payer OTHER, SELFPAY ==
--- NOTE | ~2021-04-12 | MM_ITS ---
EXAMINATION: MM SCREENING DIGITAL BREAST TOMOSYNTHESIS, BILATERAL CLINICAL INFORMATION: Screening. Asymptomatic. The lifetime risk of breast cancer based on the Tyrer-Cuzick Model is 10%. COMPARISON: Mammography: 03/31/2020, 06/06/2018, 05/07/2017, 03/06/2016 TECHNIQUE: Digital breast tomosynthesis is performed in both the craniocaudal and mediolateral oblique views along with computer-aided detection (CAD). Synthesized 2D images are generated from the tomosynthesis. FINDINGS: There are scattered areas of fibroglandular density (ACR BI-RADS breast composition Category b). There are no significant masses, abnormal calcifications, or other abnormalities. Parenchymal pattern is similar to prior studies. There is no developing density or architectural abnormality. There are 2 dermal lesions overlying the posterior medial left breast, marked with dermal marker. The axilla and skin contours are unremarkable. No significant changes. MM/MM tomosynthesis screening BI IMPRESSION: No mammographic evidence of malignancy. ASSESSMENT: BI-RADS 2: Benign RECOMMENDATION: Routine annual mammography screening. This patient's information was entered into a reminder system with a target due date for their next mammogram.
== END 2021-04-12 13:41 | disposition home or self-care (01) ==
LOC: HO.MAMMO 13:40
PROVIDERS: PCP Internal Medicine; Visit Provider Internal Medicine
DX: Z12.31 Encounter for screening mammogram for malignant neoplasm of breast (principal)
CPT/HCPCS: 77063; 77067

== ENCOUNTER 2021-06-20 08:21 | Outpatient (REF) | payer OTHER, SELFPAY ==
[2021-06-23 18:31] LABS: HPV mRNA E6/E7 rflx Not Detected (Not Detected)
== END 2021-06-20 08:22 | disposition home or self-care (01) ==
LOC: HO.LAB 08:21
PROVIDERS: PCP Internal Medicine; Visit Provider Obstetrics & Gynecology
DX: Z01.411 Encounter for gynecological examination (general) (routine) with abnormal findings (principal); Z11.51 Encounter for screening for human papillomavirus (HPV); N95.2 Postmenopausal atrophic vaginitis
CPT/HCPCS: 87624; 88142

== ENCOUNTER 2021-07-26 09:03 | Outpatient (REF) | payer OTHER, SELFPAY ==
[2021-07-26 09:26] LABS: MANUAL DIFF FLAG NO
[2021-07-26 10:12] LABS: Basophils Percent Auto 0.7 % (0-2); Eosinophils Absolute Auto 0.1 X10*3/uL (0.0-0.4); Eosinophils Percent Auto 1.7 % (0-4); Hematocrit 37.3 % (37.0-47.0); Hemoglobin 12.8 g/dl (12.0-16.0); Imm Gran Abs Auto 0.01 X10*3/uL (0.00-0.03); Imm Gran Pct Auto 0.3 % (0.0-0.4); Lymphocytes Absolute Auto 1.3 X10*3/uL (1.2-4.9); Lymphocytes Percent Auto 43.3 % (20-40); Mean Corpuscular HGB Conc 34.3 g/dl (31.0-35.0); Mean Corpuscular Volume 90.3 fL (80.0-98.0); Mean Platelet Volume 9.2 fL (9.4-12.3); Monocytes Absolute Auto 0.4 X10*3/uL (0.1-1.2); Neutrophils Absolute Auto 1.3 x10*3/uL (2.0-8.3); Platelet Count 285 X10*3/uL (160-400); Red Blood Count 4.13 X10*6/uL (4.20-5.50); Red Cell Distribution Width 12.7 % (11.0-16.0)
[2021-07-26 10:50] LABS: Alanine Aminotransferase 25 U/L (0-31); Albumin Level 4.4 g/dL (3.5-5.0); Alkaline Phosphatase 71 U/L (39-117); Anion Gap 12 (12-20); Aspartate Amino Transferase 25 U/L (5-31); Bilirubin Total 0.9 mg/dL (0.0-1.0); Blood Urea Nitrogen 15 mg/dL (9-16); Carbon Dioxide 25 mmol/L (22-29); Chloride 107 mmol/L (96-108); Estimated Glomerular Filt Rate > 60; Glucose Random 113 mg/dL (60-115); Potassium 4.5 mmol/L (3.3-5.1); Sodium 139 mmol/L (135-145); Total Protein 7.1 g/dL (6.5-8.0)
== END 2021-07-26 09:04 | disposition home or self-care (01) ==
LOC: HO.LAB 09:03
PROVIDERS: PCP Internal Medicine; Visit Provider Internal Medicine Medical Oncology
DX: D72.819 Decreased white blood cell count, unspecified (principal)
CPT/HCPCS: 36415; 80053; 85025

== ENCOUNTER 2022-02-13 10:56 | Outpatient (REF) | payer OTHER, SELFPAY ==
[2022-02-13 11:07] LABS: MANUAL DIFF FLAG NO
[2022-02-13 11:54] LABS: Basophils Percent Auto 0.6 % (0-2); Eosinophils Absolute Auto 0.1 X10*3/uL (0.0-0.4); Hemoglobin 13.4 g/dl (12.0-16.0); Imm Gran Abs Auto 0.02 X10*3/uL (0.00-0.03); Imm Gran Pct Auto 0.3 % (0.0-0.4); Lymphocytes Percent Auto 32.4 % (20-40); Mean Corpuscular HGB Conc 34.4 g/dl (31.0-35.0); Mean Corpuscular Hemoglobin 31.2 pg (27.0-33.0); Mean Corpuscular Volume 90.7 fL (80.0-98.0); Mean Platelet Volume 9.3 fL (9.4-12.3); Monocytes Absolute Auto 0.4 X10*3/uL (0.1-1.2); Monocytes Percent Auto 5.9 % (2-11); Neutrophils Absolute Auto 3.8 x10*3/uL (2.0-8.3); Neutrophils Percent Auto 59.8 % (45-73); Platelet Count 357 X10*3/uL (160-400); Red Cell Distribution Width 12.3 % (11.0-16.0); White Blood Count 6.3 X10*3/uL (4.8-10.8)
[2022-02-13 12:16] LABS: Alanine Aminotransferase 19 U/L (0-31); Albumin Level 4.7 g/dL (3.5-5.0); Alkaline Phosphatase 70 U/L (39-117); Anion Gap 14 (12-20); Aspartate Amino Transferase 21 U/L (5-31); Bilirubin Total 0.7 mg/dL (0.0-1.0); Blood Urea Nitrogen 14 mg/dL (9-16); Calcium 9.9 mg/dL (8.4-10.2); Carbon Dioxide 26 mmol/L (22-29); Chloride 103 mmol/L (96-108); Estimated Glomerular Filt Rate > 60; Glucose Random 106 mg/dL (60-115); Potassium 4.7 mmol/L (3.3-5.1); Sodium 138 mmol/L (135-145); Total Protein 7.7 g/dL (6.5-8.0)
== END 2022-02-13 10:57 | disposition home or self-care (01) ==
LOC: HO.LAB 10:56
PROVIDERS: PCP Internal Medicine; Visit Provider Internal Medicine Medical Oncology
DX: D72.819 Decreased white blood cell count, unspecified (principal)
CPT/HCPCS: 36415; 80053; 85025

== ENCOUNTER 2022-03-09 08:16 | Outpatient (REF) | payer OTHER, SELFPAY ==
[2022-03-09 08:40] LABS: MANUAL DIFF FLAG NO
[2022-03-09 09:40] LABS: Basophils Percent Auto 1.1 % (0-2); Eosinophils Percent Auto 1.1 % (0-4); Hemoglobin 13.3 g/dl (12.0-16.0); Imm Gran Abs Auto 0.01 X10*3/uL (0.00-0.03); Imm Gran Pct Auto 0.3 % (0.0-0.4); Lymphocytes Absolute Auto 1.6 X10*3/uL (1.2-4.9); Lymphocytes Percent Auto 41.2 % (20-40); Mean Corpuscular HGB Conc 34.1 g/dl (31.0-35.0); Mean Corpuscular Volume 90.9 fL (80.0-98.0); Mean Platelet Volume 9.2 fL (9.4-12.3); Monocytes Absolute Auto 0.4 X10*3/uL (0.1-1.2); Monocytes Percent Auto 9.3 % (2-11); Neutrophils Absolute Auto 1.8 x10*3/uL (2.0-8.3); Platelet Count 334 X10*3/uL (160-400); Red Blood Count 4.29 X10*6/uL (4.20-5.50); Red Cell Distribution Width 12.4 % (11.0-16.0); White Blood Count 3.8 X10*3/uL (4.8-10.8)
[2022-03-09 10:10] LABS: Thyroid Stimulating Hormone 1.89 uIU/mL (0.32-4.0)
[2022-03-09 10:16] LABS: Alanine Aminotransferase 23 U/L (0-31); Albumin Level 4.4 g/dL (3.5-5.0); Alkaline Phosphatase 63 U/L (39-117); Anion Gap 12 (12-20); Aspartate Amino Transferase 22 U/L (5-31); Bilirubin Total 1.1 mg/dL (0.0-1.0); Blood Urea Nitrogen 12 mg/dL (9-16); Calcium 9.5 mg/dL (8.4-10.2); Carbon Dioxide 24 mmol/L (22-29); Chloride 108 mmol/L (96-108); Cholesterol 270 mg/dL; Estimated Glomerular Filt Rate > 60; Glucose Fasting 128 mg/dL (60-99); HDL Cholesterol 49 mg/dL; LDL Cholesterol Calculated 165 mg/dl; Potassium 4.5 mmol/L (3.3-5.1); Sodium 139 mmol/L (135-145); Total Protein 7.1 g/dL (6.5-8.0); Triglycerides 283 mg/dL
== END 2022-03-09 08:17 | disposition home or self-care (01) ==
LOC: HO.LAB 08:16
PROVIDERS: PCP Internal Medicine; Visit Provider Internal Medicine
DX: Z00.00 Encounter for general adult medical examination without abnormal findings (principal)
CPT/HCPCS: 36415; 80053; 80061; 84443; 85025

== ENCOUNTER 2022-04-19 | Outpatient (REF) | payer OTHER, SELFPAY ==
[2022-04-20 12:51] LABS: Influenza A PCR NEGATIVE (Negative); Influenza B PCR NEGATIVE (Negative); Resp Syncy Virus RNA Qual PCR NEGATIVE (Negative); SARS COV2 PCR INHOUSE NEGATIVE (Negative)
== END 2022-04-19 00:01 | disposition home or self-care (01) ==
LOC: HO.LNP
PROVIDERS: Visit Provider Internal Medicine
DX: Z20.822 Contact with and (suspected) exposure to COVID-19 (principal); R43.9 Unspecified disturbances of smell and taste
CPT/HCPCS: 0241U

== ENCOUNTER 2022-04-24 07:03 | Emergency (ER) | payer OTHER, SELFPAY ==
--- NOTE | ~2022-04-24 | CT_ITS ---
EXAMINATION: CT ABDOMEN AND PELVIS WITHOUT CONTRAST CLINICAL INFORMATION: Abdominal pain. Rule out perforated viscus versus pancreatitis. COMPARISON: April 11, 2020. TECHNIQUE: Multidetector volumetric imaging was performed from the superior aspect of the liver through the pubic symphysis. Sagittal and coronal reformatted images were obtained on the technologist's workstation. This CT examination was performed using dose optimization techniques as appropriate, variously including the following: *Automated exposure control *Adjustment of mA and/or kV according to patient size (this includes techniques or standardized protocols for targeted exams where dose is matched to indication/reason for exam; i.e. extremities or head) *Use of iterative reconstruction technique DLP: 595 mGy-cm FINDINGS: LUNG BASES: The lung bases appear clear, with no evidence of inflammation or nodules. Partially imaged, at least 6.5 cm, smooth, homogeneous structure adjacent to the right heart border anteriorly demonstrating Hounsfield unit density of approximately 17, not grossly changed compared with April 11, 2020. LIVER, GALLBLADDER, AND BILIARY TREE: Hepatic dome partially cut off the images. Fatty infiltration of liver. Mild hepatomegaly measuring approximately 20-21 cm in sagittal dimension. No focal hepatic lesion or biliary ductal dilatation is appreciated. Status post cholecystectomy. PANCREAS: Unremarkable. No evidence of induration of peripancreatic fat. SPLEEN: Unremarkable ADRENAL GLANDS: Unremarkable KIDNEYS AND URETERS: The kidneys appear unremarkable in size, shape, and attenuation. No hydronephrosis, hydroureter, or calculi seen. BLADDER: Poorly distended, therefore suboptimally evaluated. Grossly unremarkable. GASTROINTESTINAL TRACT: Question fat halo sign predominantly involving the second portion of the duodenum, probably present 2 years prior. Few, scattered colonic diverticula.. Normal-appearing distal ileum. No evidence of appendicitis. PERITONEAL CAVITY: No evidence of free intraperitoneal air or free intraperitoneal fluid. ABDOMINAL WALL: No significant hernia is appreciated. LYMPH NODES: No evidence of adenopathy by size criteria. VASCULAR: Unremarkable PELVIC VISCERA: Uterus not visualized, suggesting prior surgical removal. OSSEOUS STRUCTURES: Unremarkable CT/CT abdomen pelvis wo IV con IMPRESSION: No acute finding. Question fat halo sign predominantly involving the second portion of the duodenum, probably present 2 years prior. The findings raise the possibility of old duodenitis. Fatty infiltration of liver. Mild hepatomegaly. Partially imaged, at least 6.5 cm, smooth, homogeneous structure adjacent to the right heart border anteriorly demonstrating Hounsfield unit density of approximately 17, not grossly changed compared with April 11, 2020. Differential diagnosis includes, but is not limited to, pericardial cyst.
--- NOTE | ~2022-04-24 | XR_ITS ---
EXAMINATION: XR CHEST CLINICAL INFORMATION: Epigastric pain. COMPARISON: 03/15/[address] scan dated 10/28/2020. TECHNIQUE: Frontal view of the chest was obtained. FINDINGS: Increased opacification is seen in the right pericardial margin. The lungs otherwise clear. The heart and mediastinal structures are otherwise unremarkable. XR/XR chest 1V IMPRESSION: Right basilar opacity correlates with a right pericardial cyst seen on the 2020 CT scan. This demonstrated benign features. Overall size appears similar. No acute cardiopulmonary process.
[2022-04-24 07:26] VITALS: BP 154/90; PULSE 125; RESP 17; TEMP 37.2; O2SAT 96; BMI 27.4
[2022-04-24 07:35] VITALS: BP 133/81; PULSE 111; RESP 16; O2SAT 95
--- NOTE | 2022-04-24 07:45 | ECG_ITS ---
Test Reason : epigastric pain Blood Pressure : / mmHG Vent. Rate : 101 BPM Atrial Rate : 101 BPM P-R Int : 128 ms QRS Dur : 074 ms QT Int : 336 ms P-R-T Axes : 067 008 032 degrees QTc Int : 435 ms Sinus tachycardia Otherwise normal ECG When compared with ECG of 02-FEB-2011 14:22, No significant change was found Referred By: Mely Sofia Electronically Signed By:LOI DONNELLY MD
--- NOTE | 2022-04-24 07:48 | ED.ABDPAIN ---
HPI - Abdominal Pain General Chief Complaint: Abdominal Pain Stated Complaint: abd pain Time Seen by Provider: 04/24/22 07:34 Source: patient and family (Spouse) Mode of arrival: ambulatory Limitations: no limitations History of Present Illness HPI narrative: 57-year-old female came in for evaluation of abdominal pain. Patient has been sick with upper respiratory symptoms and been taking NSAIDs to control her symptoms, return today with 1 day history of upper abdominal pain mostly in the epigastric area radiates to lower abdomen, pain is associated with nausea but no vomiting, normal bowel movement earlier last night with no bleeding, normal urinary frequency with no dysuria or blood in the urine. No fever, no chills. Past medical history is significant for appendectomy, cholecystectomy, and hysterectomy. Related Data Home Medications Medication Instructions Recorded Confirmed melatonin 5 mg tablet 5 mg PO BEDTIME 06/01/20 10/12/20 Previous Rx's Medication Instructions Recorded estradiol 10 mcg vaginal tablet 10 mcg vaginal 2XW #30 tabs 06/20/21 (Vagifem) oseltamivir 75 mg capsule (Tamiflu) 75 mg PO BID 5 days #10 caps 04/19/22 omeprazole 40 mg capsule,delayed 40 mg PO DAILY #30 caps 04/24/22 release Allergies Allergy/AdvReac Type Severity Reaction Status Date / Time Penicillins [PENICILLINS] Allergy Severe ANAPHYLAXIS Verified 04/24/22 07:26 sulfamethoxazole Allergy Intermediate rash Verified 04/24/22 07:26 [From Bactrim] trimethoprim [From Bactrim] Allergy Intermediate rash Verified 04/24/22 07:26 Review of Systems Review of Systems All other systems are reviewed and are negative Constitutional: Reports as per HPI and Reports no additional constitutional complaints Eyes: Reports as per HPI and Reports no additional eye complaints Reports system reviewed and no additional complaints, except as documented Cardiovascular: Reports as per HPI and Reports no additional cardiovascular complaints Respiratory: Reports as per HPI and Reports no additional respiratory complaints Gastrointestinal: Reports as per HPI and Reports no additional gastrointestinal complaints Genitourinary: Reports no additional female genitourinary complaints Musculoskeletal: Reports no additional musculoskeletal complaints Skin/Breast: Reports system reviewed and no additional complaints, except as docu Psychiatric: Reports no additional psychiatric complaints Endocrine: Reports no additional endocrine complaints Hematologic/Lymphatic: Reports no additional hematologic/lymphatic complaints Allergic/Immunologic: Reports no additional allergic/immunologic complaints Reports system reviewed and no additional complaints, except as documented and Reports Abnormal speech present PMFSH Past Medical History Medical History COVID-19 vaccine administered Diverticula of intestine Family history of adverse effect to anesthesia History of diverticulosis History of endometrial biopsy History of palpitations History of postoperative nausea and vomiting Surgical History H/O colonoscopy H/O: H/O: hysterectomy History of cholecystectomy Hx of appendectomy Family History Family History Mother Diverticulosis HTN (hypertension) Father HTN (hypertension) Brother HTN (hypertension) Social History Social History Household Members: Spouse and Children Are you a primary nurse care manager to a significant other at home: No Do you presently have visiting nurse or other home services: No Alcohol intake: current Alcohol intake frequency: holidays/special occasions only Patient Tobacco Use Status: Never used Tobacco Smoked in Last 30 Days: No Use of substances other than those prescribed or required for medical reasons: No Any prior treatment program specific to substance use: No Advance Directives: No Advance Directives Information Provided: No Patient : No Physical Exam ED Vital Signs: Vital Signs - 24 hr 04/24/22 07:26 04/24/22 07:35 Temperature 99 F Pulse Rate 125 H 111 H Respiratory Rate 17 16 Blood Pressure 154/90 H 133/81 Pulse Oximetry 96 95 Oxygen Delivery Method Room Air Room Air BMI result Body Mass Index 27.4 Vital signs have been reviewed as appeared to be correct. Blood pressure normal. Heart rate normal. Respiration rate normal. Temperature normal. Oxygen saturation normal. Appearance: Alert. Oriented X3. No acute distress. Head: Normal external exam. Normocephalic. Atraumatic. No [place] signs noted. No raccoon eyes noted Eyes: PERRLA. EOMI. Conjunctiva and sclera normal. Eyelids normal. ENT: TM's Normal. Pharynx normal. Uvula midline. Moist mucous membranes. No trismus noted. No drooling noted. No muffled voice noted. Neck: Normal inspection. Neck supple. FROM. No adenopathy. Thyroid Normal. No meningeal signs. No neck mass noted. CVS: Normal heart rate and rhythm. Heart sound normal. No murmurs noted. Pulses normal throughout. Respiratory: No respiratory distress. Painless inspiration. Breath sounds normal. No wheezes/rales/rhonchi noted. Chest nontender. No accessory muscle usage noted or decreased air movement noted. Abdomen: Soft, mild epigastric tenderness, no rebound tenderness, no guarding. Bowel sounds normal in all 4 quadrants. No distention noted. No organomegaly noted. No visible injury noted. Back: No CVA tenderness. Full range of motion noted. Skin: Skin warm and dry. Normal skin color. Normal skin turgor. No rashes/lesions/lacerations noted. Extremities: No lower extremity edema. Extremities exhibit normal range of motion. Extremities nontender. Neuro: Oriented X 3. Cranial nerve exam: II-XII are grossly intact No motor deficit. No sensory deficit. Reflexes normal. Course Course Course Narrative: 57-year-old female came in with epigastric abdominal pain. Physical exam/CT of the abdomen pelvis is more consistent with duodenitis. Patient feels better with PPI and Maalox. Will discharge on omeprazole and follow up with GI. Incidentally patient with elevated LFTs patient was instructed to follow up with GI pen Medical Decision Making Differential Diagnosis Differential Diagnoses: The differential diagnosis associated with the presentation includes (ACS, pancreatitis, gastritis, duodenitis, perforated peptic ulcer disease, GERD, hepatitis.) Lab Data MDM Lab Attestation statement: I reviewed the patient's lab results. 04/24/22 08:16 04/24/22 08:16 Labs: Lab Results 04/24/22 04/24/22 04/24/22 Range/Units 08:16 08:16 08:16 WBC 7.0 (4.8-10.8) X10*3/uL RBC 4.00 L (4.20-5.50) X10*6/uL Hgb 12.6 (12.0-16.0) g/dl Hct 36.1 L (37.0-47.0) % MCV 90.3 (80.0-98.0) fL MCH 31.5 (27.0-33.0) pg MCHC 34.9 (31.0-35.0) g/dl RDW 12.4 (11.0-16.0) % Plt Count 386 (160-400) X10*3/uL MPV 8.8 L (9.4-12.3) fL Immature Gran % (Auto) 1.6 H (0.0-0.4) % Neut % (Auto) 65.4 (45-73) % Lymph % (Auto) 22.1 (20-40) % Alexander % (Auto) 8.5 (2-11) % Eos % (Auto) 1.7 (0-4) % Baso % (Auto) 0.7 (0-2) % Lymph # (Auto) 1.5 (1.2-4.9) X10*3/uL Alexander # (Auto) 0.6 (0.1-1.2) X10*3/uL Eos # (Auto) 0.1 (0.0-0.4) X10*3/uL Baso # (Auto) 0.1 (0.0-0.2) X10*3/uL Abs Immat Gran (auto) 0.11 H (0.00-0.03) X10*3/uL Absolute Neuts (auto) 4.6 (2.0-8.3) x10*3/uL Absolute Nucleated RBC 0.000 (0.0-0.012) X10*3/uL Nucleated RBC % (auto) 0.0 (0.0-0.2) /100WBC Sodium 141 (135-145) mmol/L Potassium 4.2 (3.3-5.1) mmol/L Chloride 104 (96-108) mmol/L Carbon Dioxide 28 (22-29) mmol/L Anion Gap 13 (12-20) BUN 6 L (9-16) mg/dL Creatinine 0.75 (0.5-1.4) mg/dL Estim Creat Clear Calc 85.8 Estimated GFR > 60 Random Glucose 149 H (60-115) mg/dL Calcium 9.3 (8.4-10.2) mg/dL Total Bilirubin 0.7 (0.0-1.0) mg/dL Direct Bilirubin 0.2 (0.0-0.5) mg/dL AST 46 H (5-31) U/L ALT 53 H (0-31) U/L Alkaline Phosphatase 94 (39-117) U/L Troponin I High Sens < 3.5 (<3.5-17.0) ng/L Total Protein 6.9 (6.5-8.0) g/dL Albumin 4.1 (3.5-5.0) g/dL Lipase 18 (8-78) U/L Urine Color Urine Appearance Urine pH (5.0-9.0) Ur Specific [place] (1.005-1.025) Urine Protein (Neg-Trace) mg/dL Urine Glucose (UA) (Negative) mg/dL Urine Ketones (Negative) mg/dL Urine Blood (Negative) Urine Nitrite (Negative) Ur Leukocyte Esterase (Negative) Urine RBC (0-2) /HPF Urine WBC (0-5) /HPF Ur Squamous Epith Cells (0-2) /HPF Urine Bacteria (None Seen) Hyaline Casts (0-2) /LPF 04/24/22 Range/Units 08:39 WBC (4.8-10.8) X10*3/uL RBC (4.20-5.50) X10*6/uL Hgb (12.0-16.0) g/dl Hct (37.0-47.0) % MCV (80.0-98.0) fL MCH (27.0-33.0) pg MCHC (31.0-35.0) g/dl RDW (11.0-16.0) % Plt Count (160-400) X10*3/uL MPV (9.4-12.3) fL Immature Gran % (Auto) (0.0-0.4) % Neut % (Auto) (45-73) % Lymph % (Auto) (20-40) % Alexander % (Auto) (2-11) % Eos % (Auto) (0-4) % Baso % (Auto) (0-2) % Lymph # (Auto) (1.2-4.9) X10*3/uL Alexander # (Auto) (0.1-1.2) X10*3/uL Eos # (Auto) (0.0-0.4) X10*3/uL Baso # (Auto) (0.0-0.2) X10*3/uL Abs Immat Gran (auto) (0.00-0.03) X10*3/uL Absolute Neuts (auto) (2.0-8.3) x10*3/uL Absolute Nucleated RBC (0.0-0.012) X10*3/uL Nucleated RBC % (auto) (0.0-0.2) /100WBC Sodium (135-145) mmol/L Potassium (3.3-5.1) mmol/L Chloride (96-108) mmol/L Carbon Dioxide (22-29) mmol/L Anion Gap (12-20) BUN (9-16) mg/dL Creatinine (0.5-1.4) mg/dL Estim Creat Clear Calc Estimated GFR Random Glucose (60-115) mg/dL Calcium (8.4-10.2) mg/dL Total Bilirubin (0.0-1.0) mg/dL Direct Bilirubin (0.0-0.5) mg/dL AST (5-31) U/L ALT (0-31) U/L Alkaline Phosphatase (39-117) U/L Troponin I High Sens (<3.5-17.0) ng/L Total Protein (6.5-8.0) g/dL Albumin (3.5-5.0) g/dL Lipase (8-78) U/L Urine Color Yellow Urine Appearance Clear Urine pH 7.5 (5.0-9.0) Ur Specific [place] <= 1.005 (1.005-1.025) Urine Protein Negative (Neg-Trace) mg/dL Urine Glucose (UA) Negative (Negative) mg/dL Urine Ketones Negative (Negative) mg/dL Urine Blood Negative (Negative) Urine Nitrite Negative (Negative) Ur Leukocyte Esterase Trace H (Negative) Urine RBC 0-2 (0-2) /HPF Urine WBC 0-5 (0-5) /HPF Ur Squamous Epith Cells 0-2 (0-2) /HPF Urine Bacteria None Seen (None Seen) Hyaline Casts 0-2 (0-2) /LPF Independent Interpretation I performed an independent interpretation of an: Plain X-Ray (Right basilar opacity correlates with a right pericardial cyst seen on the 2020 CT scan. This demonstrated benign features. Overall size appears similar. No acute cardiopulmonary process. ) and CT Scan (Abdomen and pelvisQuestion fat halo sign predominantly involving the second portion of the duodenum, probably present 2 years prior. The findings raise the possibility of old duodenitis. Fatty infiltration of liver. Mild hepatomegaly. Partially imaged, at least 6.5 cm, smooth, homogeneous struct) Radiology Impression Discussion of test interpretation with radiology: I have reviewed the radiologist's reading. Medications Administered Discontinued Medications Generic Name Dose Route Start Last Admin Trade Name Amber PRN Reason Stop Dose Admin Al Hydroxide/Mg Hydroxide 30 ml 04/24/22 07:46 04/24/22 08:19 Magnesium Hydrox/Alum Hydrox 30 Ml Oral.Susp PO 04/24/22 07:47 30 ml ONCE ONE Administration Famotidine 20 mg 04/24/22 07:46 04/24/22 08:19 Famotidine/Pf 20 Mg/2 Ml Vial IVPUSH 04/24/22 07:47 20 mg ONCE ONE Administration Sodium Chloride 1,000 mls @ 999 mls/hr 04/24/22 07:44 04/24/22 09:20 Ns IV 04/24/22 08:44 Infused .Q1H1M ONE Infusion Morphine Sulfate 1 mg 04/24/22 07:46 04/24/22 08:19 Morphine Sulfate 2 Mg/Ml Cartridge IVPUSH 04/24/22 07:47 1 mg ONCE ONE Administration Protocol Ondansetron HCl 4 mg 04/24/22 07:46 04/24/22 08:19 Ondansetron Hcl 4 Mg/2 Ml Vial IVPUSH 04/24/22 07:47 4 mg ONCE ONE Administration Discharge Plan Discharge Clinical Impression: Duodenitis, Elevated LFTs Patient Disposition: Home, Self-Care Instructions: Duodenitis (ED) Prescriptions: New omeprazole 40 mg capsule,delayed release(DR/EC) 40 mg PO DAILY Qty: 30 0RF No Action melatonin 5 mg Tablet 5 mg PO BEDTIME oseltamivir [Tamiflu] 75 mg capsule 75 mg PO BID 5 Days Qty: 10 0RF estradiol [Vagifem] 10 mcg tablet 10 mcg vaginal 2XW Qty: 30 3RF Rx Instructions: Start with 1 tablet daily for 1 week then twice a week for maintenance Referrals: Eugene Victoria MD [Primary Care Provider] - Zenaida Abrams MD [Physician] - Stand Alone Forms: Work/School Release
[2022-04-24] MEDS: Magnesium Hydrox/Alum Hydrox 30 ML ORAL.SUSP PO (08:19)
[2022-04-24] MEDS: 0.9 % Sodium Chloride 1,000 ML 999 ML IV (08:19)
[2022-04-24] MEDS: Famotidine/PF 20 MG/2 ML VIAL IVPUSH (08:19)
[2022-04-24] MEDS: Morphine Sulfate 2 MG/ML CARTRIDGE 1 MG IVPUSH (08:19)
[2022-04-24] MEDS: ondansetron HCL 4 MG/2 ML VIAL IVPUSH (08:19)
[2022-04-24 08:22] LABS: MANUAL DIFF FLAG NO
[2022-04-24 08:24] LABS: Basophils Absolute Auto 0.1 X10*3/uL (0.0-0.2); Basophils Percent Auto 0.7 % (0-2); Eosinophils Absolute Auto 0.1 X10*3/uL (0.0-0.4); Eosinophils Percent Auto 1.7 % (0-4); Hematocrit 36.1 % (37.0-47.0); Hemoglobin 12.6 g/dl (12.0-16.0); Imm Gran Abs Auto 0.11 X10*3/uL (0.00-0.03); Imm Gran Pct Auto 1.6 % (0.0-0.4); Lymphocytes Absolute Auto 1.5 X10*3/uL (1.2-4.9); Lymphocytes Percent Auto 22.1 % (20-40); Mean Corpuscular HGB Conc 34.9 g/dl (31.0-35.0); Mean Corpuscular Hemoglobin 31.5 pg (27.0-33.0); Mean Corpuscular Volume 90.3 fL (80.0-98.0); Mean Platelet Volume 8.8 fL (9.4-12.3); Monocytes Absolute Auto 0.6 X10*3/uL (0.1-1.2); Monocytes Percent Auto 8.5 % (2-11); Neutrophils Absolute Auto 4.6 x10*3/uL (2.0-8.3); Neutrophils Percent Auto 65.4 % (45-73); Platelet Count 386 X10*3/uL (160-400); Red Cell Distribution Width 12.4 % (11.0-16.0)
[2022-04-24 08:50] LABS: Appearance Urine Clear; Color Urine Yellow; Glucose Urine UA Negative (Negative); Leukocyte Esterase Urine Trace (Negative); Nitrite Urine Negative (Negative); PH 7.5 (5.0-9.0); Specific Gravity - Urine <= 1.005 (1.005-1.025); UMIC TRIGGER UACC YES; Urine Blood Negative (Negative); Urine Ketones Negative (Negative); Urine Protein Negative (Neg-Trace)
[2022-04-24 08:52] LABS: Bacteria Urine None Seen (None Seen); Hyaline Casts Urine 0-2 /LPF (0-2); RBC Urine 0-2 /HPF (0-2); Squamous Epithelial Cell Urine 0-2 /HPF (0-2); WBC Urine 0-5 /HPF (0-5)
[2022-04-24 08:59] LABS: Alanine Aminotransferase 53 U/L (0-31); Albumin Level 4.1 g/dL (3.5-5.0); Alkaline Phosphatase 94 U/L (39-117); Anion Gap 13 (12-20); Aspartate Amino Transferase 46 U/L (5-31); Bilirubin Direct 0.2 mg/dL (0.0-0.5); Bilirubin Total 0.7 mg/dL (0.0-1.0); Blood Urea Nitrogen 6 mg/dL (9-16); Calcium 9.3 mg/dL (8.4-10.2); Carbon Dioxide 28 mmol/L (22-29); Chloride 104 mmol/L (96-108); Creatinine Clr Calc Pharmacy 85.8; Estimated Glomerular Filt Rate > 60; Glucose Random 149 mg/dL (60-115); Lipase 18 U/L (8-78); Potassium 4.2 mmol/L (3.3-5.1); Sodium 141 mmol/L (135-145); Total Protein 6.9 g/dL (6.5-8.0)
[2022-04-24 09:02] LABS: Troponin-I High Sensitivity < 3.5 ng/L (<3.5-17.0)
[2022-04-24 10:08] VITALS: BP 136/83; PULSE 83; RESP 18; O2SAT 96
== END 2022-04-24 10:09 | disposition home or self-care (01) ==
PROVIDERS: Emergency Provider Emergency Medicine; PCP Internal Medicine
DX: R10.9 Unspecified abdominal pain (principal); R10.13 Epigastric pain; K29.80 Duodenitis without bleeding; R74.01 Elevation of levels of liver transaminase levels
CPT/HCPCS: 36415; 71045; 74176; 80048; 80076; 81001; 83690; 84484; 85025; 93005; 96361; 96374; 96375; 99284; 99285; J2270; J2405

== ENCOUNTER 2022-05-01 07:20 | Day surgery (SDC) | payer OTHER, SELFPAY ==
--- NOTE | 2022-05-01 07:12 | MHC.SHP ---
Pre-Procedural Eval Section A Date of Service: 05/01/22 The patient is an INPATIENT: No The History & Physical has been completed within 30 days and I have reviewed it.: No Section B Chief Complaint: Duodenitis, dysphagia Details of Present Illness: abdominal pain, abnormal CT scan of the duodenum, dysphagia Relevant Family History (Specify if Yes): No Relevant Social History: None Present Medications: see Short Stay Collaborative assessment Medical History: Significant History (pericardial cyst) History of Previous Operations: Relevant previous surgery/procedure and date(s) (H/O: H/O: hysterectomy History of cholecystectomy Hx of appendectomy) Allergies: Allergies Allergy/AdvReac Type Severity Reaction Status Date / Time Penicillins [PENICILLINS] Allergy Severe ANAPHYLAXIS Verified 04/24/22 07:26 sulfamethoxazole Allergy Intermediate rash Verified 04/24/22 07:26 [From Bactrim] trimethoprim [From Bactrim] Allergy Intermediate rash Verified 04/24/22 07:26 Review of Systems Sugical H&P ROS: Negative: Constitution, Cardiovascular, Respiratory and Gastrointestinal Exam Surgical H&P Exam: Normal: Heart, Normal: Lungs, Normal: Extremities and Normal: Abdomen Plan Diagnosis/Plan: Unchanged I have reviewed the history and physical and performed a pertinent physical examination on my patient. No changes have occurred unless specified. Time Spent With Patient Time: Total time managing care of this patient today ____ minutes.
[2022-05-01 07:37] VITALS: BMI 27.4
[2022-05-01] MEDS: Lactated Ringers 1,000 ML 50 ML IVCONT (07:52)
[2022-05-01 07:54] VITALS: BP 154/96; PULSE 105; RESP 18; TEMP 36.2; O2SAT 96
--- NOTE | 2022-05-01 08:17 | HO.ANESPROP2 ---
[facility] Active Problems Active Problems: All Active Problems (Updated 04/25/22 @ 00:01 by Ramakrishna Roque) Upper respiratory tract infection (Acute) Pericardial cyst (Acute) Atrophic vaginitis (Acute) Well woman exam (Acute) Left lower quadrant pain (Acute) Diverticulosis (Acute) Colon cancer screening (Acute) Change in bowel habits (Acute) Past Medical History Medical History COVID-19 vaccine administered Diverticula of intestine Family history of adverse effect to anesthesia History of diverticulosis History of endometrial biopsy History of palpitations History of postoperative nausea and vomiting Family History Family History Mother Diverticulosis HTN (hypertension) Father HTN (hypertension) Brother HTN (hypertension) Family history of problems with anesthesia: No Surgical History Surgical History H/O colonoscopy H/O: H/O: hysterectomy History of cholecystectomy Hx of appendectomy History of Problems with Anesthesia: No Social History Social History Household Members: Spouse and Children Are you a primary director of career resources to a significant other at home: No Do you presently have visiting nurse or other home services: No Alcohol intake: current Alcohol intake frequency: holidays/special occasions only Patient Tobacco Use Status: Never used Tobacco Are you DNR?: No Advance Directives: No Advance Directives Information Provided: Yes Nutrition Risks: No Nutritional Risk Meds Allergies Allergy/AdvReac Type Severity Reaction Status Date / Time Penicillins [PENICILLINS] Allergy Severe ANAPHYLAXIS Verified 05/01/22 08:11 sulfamethoxazole Allergy Intermediate rash Verified 05/01/22 08:11 [From Bactrim] trimethoprim [From Bactrim] Allergy Intermediate rash Verified 05/01/22 08:11 Active Medications: Current Medications Lactated Ringer's (Lr) 1,000 mls @ 50 mls/hr IVCONT .Q20H LINDA Last Admin: 05/01/22 07:52 Dose: 50 mls/hr Home Medications Medication Instructions Recorded Confirmed Last Taken Type melatonin 5 mg tablet 5 mg PO BEDTIME 06/01/20 05/01/22 Unknown History Exam Exam Date and Time: May 01, 2022 0817 Height,Weight and Vital Signs: Height 5 ft 5 in Weight 74.843 kg Last Vital Signs Temp 97.2 F 05/01/22 07:54 Pulse 105 H 05/01/22 07:54 Resp 18 05/01/22 07:54 BP 154/96 H 05/01/22 07:54 Pulse Ox 96 05/01/22 07:54 O2 Del Method Room Air 05/01/22 07:54 Airway Mallampati Class: III TM Dist: >3cm Neck ROM: Full Heart: RRR Lungs: CTA Assessment and Plan Final Anesthetic Review Family History of Problems with Anesthesia: No History of Problems with Anesthesia: No NPO: Yes Final Preanesthetic Review: Meds/Allgs Chart Reviewed, Consent Obtained/Reviewed and Anes Risks/Benef Reviewed Patient Risk: Low Procedure Risk: Low Anesthetic Plan Anesthetic Plan: MAC: Disposition: Standard PACU
--- NOTE | 2022-05-01 08:27 | P.BOP_ITS ---
Brief Operative Note Date of Service: 05/01/22 Pre-op diagnosis: abdominal pain, abnormal CT scan of the duodenum, dysphagia Post-op diagnosis: other ( GERD, HIATAL HERNIA, SCHATZKI'S RING, GASTRITIS, GASTRIC POLYPS) Procedure: FLEXIBLE TRANSORAL UPPER GASTROINTESTINAL ENDOSCOPY WITH BIOPSIES AND ESOPHAGEAL BALLOON DILATION Surgeon: Zenaida Abrams MD Anesthesia: MAC Was an Unix System Administrator used for this Procedure?: Yes Unix System Administrator: Ronnie Sadler Estimated blood loss (mL): 1 Pathology: other (A. Small bowel, B. Gastric antrum, C. Gastric body, D. Gastric polyp, E. Proximal esophagus) Condition: stable Disposition: PACU
--- NOTE | 2022-05-01 08:28 | W.PM.OPN ---
Operative Note Operative Note Date of Service: 05/01/22 Narrative: FLEXIBLE TRANSORAL UPPER GASTROINTESTINAL ENDOSCOPY WITH BIOPSIES AND ESOPHAGEAL BALLOON DILATION Consent: Indications for the procedure and potential complications of bleeding, perforation, reaction to medications and missed diagnosis were discussed with the patient and informed consent was obtained. Instrument: Olympus GIF H 190 mid size upper endoscope Monitoring: Vital signs and clinical assessment, continuous EKG monitoring, Pulse oximetry, Carbon Dioxide monitoring and blood pressure monitoring were done throughout the procedure. Procedure: The patient was placed in the left lateral decubitis position and pre-procedure medications were administered and a bite block was placed. The endoscope was inserted into the mouth and advanced under direct vision to the third part of duodenum. A careful inspection was made as the upper endoscope was withdrawn including a retroflexed examination of the proximal stomach; Findings and interventions are described below. Findings: Larynx: Normal Esophagus: Tortuous esophagus with increased tertiary contractions - biopsies were obtained from proximal esophagus to check for EOE. A partially obstructing Schatzki's ring at the GE junction. Schatzki's ring was dilated with 20 mm (60 F) CRE balloon x 60 seconds. GE junction at 33 cms, small hiatal hernia 33 to 36 cms. No esophagitis or Vanegas's. Stomach: Moderate diffuse gastric erythema. Biopsies were obtained from antrum and body of the stomach. A few 2-4 mm benign-appearing polyps in the gastric body - 1 was biopsied. Grade 3 flap valve on retroflexed examination of the cardia. Duodenum: minimal erythema in the bulb and normal descending duodenum Biopsies were obtained from 3rd part of the duodenum to check for celiac sprue Intervention: Biopsies and esophageal balloon dilation as noted above Impression and Post Procedure Diagnosis: Endoscopy Findings: ESOPHAGUS: Tortuous esophagus with increased tertiary contractions - biopsies were obtained from proximal esophagus to check for EOE. A partially obstructing Schatzki's ring at the GE junction. Schatzki's ring was dilated with 20 mm (60 F) CRE balloon x 60 seconds. GE junction at 33 cms, small hiatal hernia 33 to 36 cms. STOMACH: Moderate diffuse gastric erythema. Biopsies were obtained from antrum and body of the stomach. A few 2-4 mm benign-appearing polyps in the gastric body - 1 was biopsied. DUODENUM: Normal - biopsied to check for celiac sprue Plan: I will contact the patient with pathology results Above findings were reviewed with the patient and GERD and Gastric Polyps handouts were given in the discharge area
[2022-05-01 09:06] VITALS: BP 133/58; PULSE 117; RESP 16; TEMP 36.2; O2SAT 95
[2022-05-01] MEDS: Acetaminophen 325 MG TABLET 650 MG PO (09:17)
[2022-05-01 09:21] VITALS: BP 144/75; PULSE 90; RESP 16; TEMP 36.2; O2SAT 99
--- NOTE | 2022-05-01 09:48 | HO.POSTANES ---
Post Anesthesia Evaluation Post Anesthesia Evaluation Vital Signs: Vital Signs Temp Pulse Resp BP Pulse Ox O2 Del Method 05/01/22 09:21 97.1 F 90 16 144/75 H 99 Room Air 05/01/22 09:06 97.1 F 117 H 16 133/58 L 95 Room Air 05/01/22 07:54 97.2 F 105 H 18 154/96 H 96 Room Air Anesthesia: Monitored Mental Status: Awake Pain Control: Satisfactory Nausea/Vomiting: None Hydration: Adequate Anesthesia-Related Issues: No Anes. Related Issues
== END 2022-05-01 09:53 | disposition home or self-care (01) ==
PROVIDERS: PCP Internal Medicine; Visit Provider Internal Medicine Gastroenterology
PROC: 0DJ08ZZ Inspection of Upper Intestinal Tract, Via Natural or Artificial Opening Endoscopic (ICD-10-PCS; CPT 43235; principal; 2022-05-01 08:30)
DX: K29.50 Unspecified chronic gastritis without bleeding (principal); K22.2 Esophageal obstruction; R13.10 Dysphagia, unspecified; K29.80 Duodenitis without bleeding; K31.7 Polyp of stomach and duodenum; K44.9 Diaphragmatic hernia without obstruction or gangrene; Z90.49 Acquired absence of other specified parts of digestive tract; Z88.0 Allergy status to penicillin; Z88.2 Allergy status to sulfonamides
CPT/HCPCS: 43249; 43239; 88305; 88342; C1726

== ENCOUNTER 2022-05-04 15:19 | Outpatient (REF) | payer OTHER, SELFPAY ==
--- NOTE | ~2022-05-04 | MM_ITS ---
EXAMINATION: MM SCREENING DIGITAL BREAST TOMOSYNTHESIS, BILATERAL CLINICAL INFORMATION: Screening. Asymptomatic. The lifetime risk of breast cancer based on the Tyrer-Cuzick Model is 8.9%. COMPARISON: Mammography: 04/12/2021 and studies dating back to 03/06/2016. TECHNIQUE: Digital breast tomosynthesis is performed in both the craniocaudal and mediolateral oblique views along with computer-aided detection (CAD). Synthesized 2D images are generated from the tomosynthesis. FINDINGS: There are scattered areas of fibroglandular density (ACR BI-RADS breast composition Category b). There are no new significant masses, abnormal calcifications, or other abnormalities. There is a stable 8 mm circumscribed density about the upper outer aspect of the right breast. There is also some stable asymmetric parenchyma seen on craniocaudal view within the central aspect of the right breast. MM/MM tomosynthesis screening BI IMPRESSION: No significant changes from prior exam. ASSESSMENT: BI-RADS 2: Benign RECOMMENDATION: Routine annual mammography screening. This patient's information was entered into a reminder system with a target due date for their next mammogram.
== END 2022-05-04 15:20 | disposition home or self-care (01) ==
LOC: HO.MAMMO 15:19
PROVIDERS: PCP Internal Medicine; Visit Provider Internal Medicine
DX: Z12.31 Encounter for screening mammogram for malignant neoplasm of breast (principal)
CPT/HCPCS: 77063; 77067

== ENCOUNTER 2022-05-08 08:36 | Outpatient (REF) | payer OTHER, SELFPAY ==
[2022-05-08 08:52] LABS: MANUAL DIFF FLAG NO
[2022-05-08 10:00] LABS: Basophils Absolute Auto 0.1 X10*3/uL (0.0-0.2); Basophils Percent Auto 1.2 % (0-2); Eosinophils Absolute Auto 0.1 X10*3/uL (0.0-0.4); Eosinophils Percent Auto 1.6 % (0-4); Hematocrit 37.3 % (37.0-47.0); Hemoglobin 12.7 g/dl (12.0-16.0); Imm Gran Abs Auto 0.02 X10*3/uL (0.00-0.03); Imm Gran Pct Auto 0.4 % (0.0-0.4); Lymphocytes Absolute Auto 1.5 X10*3/uL (1.2-4.9); Lymphocytes Percent Auto 31.1 % (20-40); Mean Corpuscular Hemoglobin 30.7 pg (27.0-33.0); Mean Corpuscular Volume 90.1 fL (80.0-98.0); Mean Platelet Volume 8.8 fL (9.4-12.3); Monocytes Absolute Auto 0.5 X10*3/uL (0.1-1.2); Monocytes Percent Auto 9.8 % (2-11); Neutrophils Absolute Auto 2.8 x10*3/uL (2.0-8.3); Neutrophils Percent Auto 55.9 % (45-73); Platelet Count 555 X10*3/uL (160-400); Red Blood Count 4.14 X10*6/uL (4.20-5.50); Red Cell Distribution Width 12.7 % (11.0-16.0); White Blood Count 4.9 X10*3/uL (4.8-10.8)
[2022-05-08 10:08] LABS: Estimated Average Glucose 128 mg/dL; Hemoglobin A1c % 6.1 %
[2022-05-08 10:24] LABS: Alanine Aminotransferase 21 U/L (0-31); Albumin Level 4.3 g/dL (3.5-5.0); Alkaline Phosphatase 80 U/L (39-117); Anion Gap 17 (12-20); Aspartate Amino Transferase 18 U/L (5-31); Bilirubin Total 0.9 mg/dL (0.0-1.0); Blood Urea Nitrogen 14 mg/dL (9-16); Calcium 9.5 mg/dL (8.4-10.2); Carbon Dioxide 24 mmol/L (22-29); Chloride 105 mmol/L (96-108); Estimated Glomerular Filt Rate > 60; Glucose Random 116 mg/dL (60-115); Potassium 4.9 mmol/L (3.3-5.1); Sodium 141 mmol/L (135-145); Total Protein 7.2 g/dL (6.5-8.0)
== END 2022-05-08 08:37 | disposition home or self-care (01) ==
LOC: HO.LAB 08:36
PROVIDERS: PCP Internal Medicine; Visit Provider Internal Medicine
DX: R73.9 Hyperglycemia, unspecified (principal); K57.90 Diverticulosis of intestine, part unspecified, without perforation or abscess without bleeding
CPT/HCPCS: 36415; 80053; 83036; 85025

== ENCOUNTER → 2022-06-27 08:23 | Outpatient (BNVA) | payer OTHER, SELFPAY | PROVIDERS: PCP Internal Medicine; Visit Provider Obstetrics & Gynecology ==

== ENCOUNTER → 2022-07-06 13:41 | Outpatient (BNVA) | payer OTHER, SELFPAY | PROVIDERS: PCP Internal Medicine; Referring Provider Internal Medicine; Visit Provider Internal Medicine Cardiovascular Disease ==

== ENCOUNTER 2022-08-10 13:35 | Outpatient (REF) | payer OTHER, SELFPAY | END 2022-08-10 13:36 | disposition home or self-care (01) | LOC: HO.LAB 13:35 | PROVIDERS: Visit Provider Internal Medicine Medical Oncology | DX: D72.819 Decreased white blood cell count, unspecified (principal) | CPT/HCPCS: 36415; 85025 ==

== ENCOUNTER 2023-02-15 12:04 | Outpatient (REF) | payer OTHER, SELFPAY ==
[2023-02-15 12:33] LABS: MANUAL DIFF FLAG NO
[2023-02-15 12:50] LABS: Basophils Percent Auto 0.8 % (0-2); Hematocrit 39.7 % (37.0-47.0); Hemoglobin 13.7 g/dl (12.0-16.0); Imm Gran Abs Auto 0.01 X10*3/uL (0.00-0.03); Imm Gran Pct Auto 0.3 % (0.0-0.4); Lymphocytes Percent Auto 49.1 % (20-40); Mean Corpuscular HGB Conc 34.5 g/dl (31.0-35.0); Mean Corpuscular Hemoglobin 31.6 pg (27.0-33.0); Mean Corpuscular Volume 91.5 fL (80.0-98.0); Monocytes Absolute Auto 0.3 X10*3/uL (0.1-1.2); Neutrophils Absolute Auto 1.6 x10*3/uL (2.0-8.3); Neutrophils Percent Auto 40.8 % (45-73); Platelet Count 345 X10*3/uL (160-400); Red Blood Count 4.34 X10*6/uL (4.20-5.50); Red Cell Distribution Width 12.8 % (11.0-16.0)
== END 2023-02-15 12:05 | disposition home or self-care (01) ==
LOC: HO.LAB 12:04
PROVIDERS: PCP Internal Medicine; Visit Provider Internal Medicine Medical Oncology
DX: D72.819 Decreased white blood cell count, unspecified (principal)
CPT/HCPCS: 36415; 85025

== ENCOUNTER 2023-05-10 15:19 | Outpatient (REF) | payer OTHER, SELFPAY | END 2023-05-10 15:20 | disposition home or self-care (01) | LOC: HO.MAMMO 15:19 | PROVIDERS: PCP Internal Medicine; Visit Provider Internal Medicine | DX: Z12.31 Encounter for screening mammogram for malignant neoplasm of breast (principal) | CPT/HCPCS: 77063; 77067 ==

== ENCOUNTER → 2023-05-10 15:30 | Outpatient (BNV) | payer OTHER, SELFPAY | PROVIDERS: PCP Internal Medicine; Visit Provider Radiology Diagnostic Radiology | DX: Z12.31 Encounter for screening mammogram for malignant neoplasm of breast (principal) | CPT/HCPCS: 77063; 77067 ==

== ENCOUNTER 2023-06-26 08:28 | Outpatient (REF) | payer OTHER, SELFPAY ==
[2023-06-26 09:49] LABS: Appearance Urine Clear; Color Urine Yellow; Glucose Urine UA Negative (Negative); Leukocyte Esterase Urine Small (1+) (Negative); Nitrite Urine Negative (Negative); PH 5.5 (5.0-9.0); Specific Gravity - Urine 1.015 (1.005-1.025); UMIC TRIGGER UACC YES; Urine Blood Negative (Negative); Urine Ketones Negative (Negative); Urine Protein Negative (Neg-Trace)
[2023-06-26 10:07] LABS: Bacteria Urine None Seen (None Seen); Hyaline Casts Urine 0-2 /LPF (0-2); RBC Urine 0-2 /HPF (0-2); Squamous Epithelial Cell Urine 0-2 /HPF (0-2); UACC Culture Trigger YES; WBC Urine 0-5 /HPF (0-5)
== END 2023-06-26 08:29 | disposition home or self-care (01) ==
LOC: HO.LAB 08:28
PROVIDERS: PCP Internal Medicine; Visit Provider Internal Medicine
DX: R30.0 Dysuria (principal)
CPT/HCPCS: 81001; 87086

== ENCOUNTER 2023-07-03 08:53 | Outpatient (AMB) | payer OTHER, SELFPAY ==
--- NOTE | 2023-07-03 09:11 | A.OFFVIS_ITS ---
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 No complaints. Last Pap/HPV was negative in 06/26 Last Mammogram was BI-RADS 1 in 05/29 Last Colonoscopy was in 04/27, the recommendation was to repeat in 5 years COUNTS INCLUDE 234 BEDS AT THE [facility] Medical History COVID-19 vaccine administered History of palpitations Family history of adverse effect to anesthesia History of postoperative nausea and vomiting History of diverticulosis History of endometrial biopsy Diverticula of intestine Surgical History H/O colonoscopy H/O: History of cholecystectomy Hx of appendectomy H/O: hysterectomy Family History Mother Diverticulosis HTN (hypertension) Father HTN (hypertension) Brother HTN (hypertension) Social History Household Members: Spouse and Children Are you a primary childcare worker to a significant other at home: No Do you presently have visiting nurse or other home services: No Alcohol intake: current Alcohol intake frequency: holidays/special occasions only Patient Tobacco Use Status: Never used Tobacco Current occupational status: employed 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/ [employer] Sexual orientation: Straight/Heterosexual Gender identity: Female Female Reproductive History Menstrual Age of Menarche: 16 Total pregnancies: 1 Full term: 1 Number of Living Children: 2 Multiple births: 1 Date of last pap smear: 06/21/21 Date of Mammogram: 05/10/23 Review of Systems Const All systems reviewed & are unremarkable except as noted in HPI and below Card Reports as per HPI Resp Reports as per HPI GI Reports as per HPI and Reports no additional complaints Reports as per HPI Physical Exam Vital Signs: Last Vital Signs BP 108/70 07/03/23 09:12 BMI result Body Mass Index 28.3 Const General: cooperative, healthy appearing and comfortable Chest Chest palpation & inspection: normal inspection of the chest and normal palpation of entire chest wall Breast/axilla inspection: normal inspection of the breasts and normal inspection of the axillae Breast/axilla palpation: normal palpation of the breasts, normal palpation of the axillae and no axillary lymphadenopathy Resp Effort & Inspection: normal respiratory effort Auscultation: clear to auscultation bilaterally Percussion: percussion normal Cardio Palpation: normal PMI Rate: regular rate Rhythm: regular rhythm Heart sounds: no murmurs and no rubs Peripheral pulses: Peripheral pulses 2+ throughout GI Inspection: Yes normal to inspection Palpation (GI): Soft to palpation, nontender, no guarding, not rigid and No hepatosplenomegaly present Percussion: Yes normal to percussion Auscultation: normal bowel sounds Rectal Exam - Female: deferred General: Yes bladder normal to palpation External Female Exam: No lesion Speculum Exam - Vagina: normal appearance of the vagina, normal palpation, normal vaginal discharge and not erythematous Speculum Exam - Cervix: normal appearance of the cervix and normal palpation Bimanual exam- vagina & uterus: normal bimanual exam, normal palpation, uterine size normal, bladder normal to palpation, consistency normal and normal palpation Bimanual Exam- Adnexa, other: normal adnexae, no masses and no tenderness Assessment & Plan Assessment & Plan (1) Well woman exam: Code(s): Z01.419 - Encounter for gynecological examination (general) (routine) without abnormal findings Category: Medical Plan: Co testing done. Counseled the patient about the recommended dietary allowance of 1200 mg of Calcium & 600 IU of vitamin D. Instructions given the patient to schedule next screen Mammogram in 05/30. The patient was instructed to perform monthly self-breast exams and schedule annual exam in a year. All questions answered and the patient verbalized understanding. Medications: Refilled estradiol (Vagifem) Start with 1 tablet daily for 1 week then twice a week for maintenance 10 mcg vaginal 2XW 30 tabs 3RF Coding Level of Care Code Est Pt Prev Care 40-64y(29149) Diagnoses Well woman exam Z01.419
[2023-07-03 09:12] VITALS: BP 108/70; BMI 28.3
== END 2023-07-03 09:50 | disposition home or self-care (01) ==
PROVIDERS: Visit Provider Obstetrics & Gynecology
DX: Z01.419 Encounter for gynecological examination (general) (routine) without abnormal findings (principal)
CPT/HCPCS: 99396

== ENCOUNTER → 2023-07-03 08:53 | Outpatient (BNVA) | payer OTHER, SELFPAY | PROVIDERS: Visit Provider Obstetrics & Gynecology ==

== ENCOUNTER 2023-08-13 09:59 | Outpatient (REF) | payer OTHER, SELFPAY ==
[2023-08-13 10:19] LABS: MANUAL DIFF FLAG NO
[2023-08-13 11:04] LABS: Basophils Percent Auto 0.9 % (0-2); Eosinophils Percent Auto 0.9 % (0-4); Hematocrit 39.3 % (37.0-47.0); Hemoglobin 13.7 g/dl (12.0-16.0); Imm Gran Abs Auto 0.01 X10*3/uL (0.00-0.03); Imm Gran Pct Auto 0.3 % (0.0-0.4); Lymphocytes Absolute Auto 1.4 X10*3/uL (1.2-4.9); Lymphocytes Percent Auto 41.8 % (20-40); Mean Corpuscular HGB Conc 34.9 g/dl (31.0-35.0); Mean Corpuscular Hemoglobin 31.8 pg (27.0-33.0); Mean Corpuscular Volume 91.2 fL (80.0-98.0); Mean Platelet Volume 9.1 fL (9.4-12.3); Monocytes Absolute Auto 0.3 X10*3/uL (0.1-1.2); Monocytes Percent Auto 8.5 % (2-11); Neutrophils Absolute Auto 1.6 x10*3/uL (2.0-8.3); Neutrophils Percent Auto 47.6 % (45-73); Platelet Count 328 X10*3/uL (160-400); Red Blood Count 4.31 X10*6/uL (4.20-5.50); Red Cell Distribution Width 12.7 % (11.0-16.0); White Blood Count 3.4 X10*3/uL (4.8-10.8)
[2023-08-13 11:08] LABS: Basophils Percent Auto 0.9 % (0-2); Eosinophils Percent Auto 0.9 % (0-4); Hematocrit 39.5 % (37.0-47.0); Hemoglobin 13.8 g/dl (12.0-16.0); Imm Gran Abs Auto 0.01 X10*3/uL (0.00-0.03); Imm Gran Pct Auto 0.3 % (0.0-0.4); Lymphocytes Absolute Auto 1.5 X10*3/uL (1.2-4.9); Lymphocytes Percent Auto 44.3 % (20-40); Mean Corpuscular HGB Conc 34.9 g/dl (31.0-35.0); Mean Corpuscular Hemoglobin 31.7 pg (27.0-33.0); Mean Corpuscular Volume 90.6 fL (80.0-98.0); Mean Platelet Volume 9.2 fL (9.4-12.3); Monocytes Absolute Auto 0.3 X10*3/uL (0.1-1.2); Monocytes Percent Auto 8.1 % (2-11); Neutrophils Absolute Auto 1.5 x10*3/uL (2.0-8.3); Neutrophils Percent Auto 45.5 % (45-73); Platelet Count 336 X10*3/uL (160-400); Red Blood Count 4.36 X10*6/uL (4.20-5.50); Red Cell Distribution Width 12.6 % (11.0-16.0); White Blood Count 3.3 X10*3/uL (4.8-10.8)
[2023-08-13 11:18] LABS: Estimated Average Glucose 128 mg/dL; Hemoglobin A1c % 6.1 % (<6.0)
[2023-08-13 11:38] LABS: Alanine Aminotransferase 19 U/L (0-31); Albumin Level 4.6 g/dL (3.5-5.0); Alkaline Phosphatase 66 U/L (39-117); Anion Gap 14 (12-20); Aspartate Amino Transferase 18 U/L (5-31); Bilirubin Total 0.9 mg/dL (0.0-1.0); Blood Urea Nitrogen 12 mg/dL (9-16); Calcium 9.7 mg/dL (8.4-10.2); Carbon Dioxide 24 mmol/L (22-29); Chloride 107 mmol/L (96-108); Estimated Glomerular Filt Rate > 60; Glucose Random 124 mg/dL (60-115); Potassium 4.2 mmol/L (3.3-5.1); Sodium 141 mmol/L (135-145); Total Protein 7.5 g/dL (6.5-8.0)
[2023-08-13 11:55] LABS: Alanine Aminotransferase 20 U/L (0-31); Albumin Level 4.7 g/dL (3.5-5.0); Alkaline Phosphatase 66 U/L (39-117); Anion Gap 13 (12-20); Aspartate Amino Transferase 18 U/L (5-31); Bilirubin Total 0.9 mg/dL (0.0-1.0); Blood Urea Nitrogen 12 mg/dL (9-16); Carbon Dioxide 25 mmol/L (22-29); Carcinoembryonic Antigen < 1.73 ng/mL; Chloride 107 mmol/L (96-108); Cholesterol 258 mg/dL (<200); Estimated Glomerular Filt Rate > 60; Free T4 (Free Thyroxine) 0.96 ng/dL (0.71-1.85); Glucose Fasting 125 mg/dL (60-99); HDL Cholesterol 47 mg/dL (>40); LDL Cholesterol Calculated 141 mg/dL (<100); Potassium 4.3 mmol/L (3.3-5.1); Sodium 141 mmol/L (135-145); Thyroid Stimulating Hormone 1.11 uIU/mL (0.32-4.0); Total Protein 7.6 g/dL (6.5-8.0); Triglycerides 352 mg/dL (<150)
== END 2023-08-13 10:00 | disposition home or self-care (01) ==
LOC: HO.LAB 09:59
PROVIDERS: Absent Provider Internal Medicine Medical Oncology; PCP Internal Medicine; Visit Provider Internal Medicine
DX: K21.9 Gastro-esophageal reflux disease without esophagitis (principal); R53.83 Other fatigue; K57.30 Diverticulosis of large intestine without perforation or abscess without bleeding; Z13.1 Encounter for screening for diabetes mellitus
CPT/HCPCS: 36415; 80053; 80061; 82378; 83036; 84439; 84443; 85025

== ENCOUNTER → 2023-08-28 12:59 | Outpatient (BNVA) | payer OTHER, SELFPAY | PROVIDERS: PCP Internal Medicine; Visit Provider Registered Nurse | DX: Z13.89 Encounter for screening for other disorder (principal) | CPT/HCPCS: 99202 ==

== ENCOUNTER → 2023-08-31 12:05 | Outpatient (BNVA) | payer OTHER, SELFPAY | PROVIDERS: PCP Internal Medicine; Visit Provider Physician Assistant | DX: Z13.89 Encounter for screening for other disorder (principal) | CPT/HCPCS: 99213 ==

== ENCOUNTER → 2023-09-06 11:28 | Outpatient (BNVA) | payer OTHER, SELFPAY | PROVIDERS: PCP Internal Medicine; Visit Provider Physician Assistant Medical | DX: Z13.89 Encounter for screening for other disorder (principal) | CPT/HCPCS: 99213 ==

== ENCOUNTER → 2023-09-21 08:25 | Outpatient (BNVA) | payer OTHER, SELFPAY | PROVIDERS: PCP Internal Medicine; Visit Provider Registered Nurse | DX: Z13.89 Encounter for screening for other disorder (principal) | CPT/HCPCS: 99213 ==

== ENCOUNTER 2023-11-05 10:27 | Outpatient (REF) | payer OTHER, SELFPAY ==
[2023-11-05 10:53] LABS: MANUAL DIFF FLAG NO
[2023-11-05 12:20] LABS: Basophils Percent Auto 0.7 % (0-2); Eosinophils Percent Auto 0.5 % (0-4); Hematocrit 41.6 % (37.0-47.0); Hemoglobin 14.1 g/dl (12.0-16.0); Imm Gran Abs Auto 0.01 X10*3/uL (0.00-0.03); Imm Gran Pct Auto 0.2 % (0.0-0.4); Lymphocytes Absolute Auto 1.6 X10*3/uL (1.2-4.9); Lymphocytes Percent Auto 37.5 % (20-40); Mean Corpuscular HGB Conc 33.9 g/dl (31.0-35.0); Mean Corpuscular Hemoglobin 31.4 pg (27.0-33.0); Mean Corpuscular Volume 92.7 fL (80.0-98.0); Mean Platelet Volume 9.4 fL (9.4-12.3); Monocytes Absolute Auto 0.3 X10*3/uL (0.1-1.2); Monocytes Percent Auto 7.4 % (2-11); Neutrophils Absolute Auto 2.3 x10*3/uL (2.0-8.3); Neutrophils Percent Auto 53.7 % (45-73); Platelet Count 321 X10*3/uL (160-400); Red Blood Count 4.49 X10*6/uL (4.20-5.50); Red Cell Distribution Width 12.5 % (11.0-16.0); White Blood Count 4.4 X10*3/uL (4.8-10.8)
== END 2023-11-05 10:28 | disposition home or self-care (01) ==
LOC: HO.LAB 10:27
PROVIDERS: PCP Internal Medicine; Visit Provider Internal Medicine Medical Oncology
DX: D72.819 Decreased white blood cell count, unspecified (principal)
CPT/HCPCS: 36415; 85025

== ENCOUNTER → 2023-11-12 08:26 | Outpatient (REF) | payer OTHER, SELFPAY ==
--- NOTE | 2023-11-12 08:34 | HM_ITS ---
* Total monitoring time 3 days. * Underlying rhythm is sinus with an average rate of 90/Min. About 19% of the time, rate > 100/Min. * Rare supraventricular and ventricular ectopy. * No significant pauses or high-grade AV blocks. * Patient marker correlates with supraventricular ectopy. * 'Fluttering/waking up' in patient diary correlates with supraventricular ectopy. MTDD
== END ==
LOC: HO.CARD 08:26
PROVIDERS: PCP Internal Medicine; Visit Provider Internal Medicine Cardiovascular Disease
DX: R00.2 Palpitations (principal)
CPT/HCPCS: 93242

== ENCOUNTER → 2023-11-12 08:34 | Outpatient (BNV) | payer OTHER, SELFPAY | PROVIDERS: PCP Internal Medicine; Visit Provider Internal Medicine | DX: I47.10 Supraventricular tachycardia, unspecified (principal) | CPT/HCPCS: 93244 ==

== ENCOUNTER 2024-03-11 14:01 | Outpatient (REF) | payer OTHER, SELFPAY ==
--- NOTE | ~2024-03-11 | XR_ITS ---
CLINICAL HISTORY: M79.642 - Pain in left hand 3 view left hand Comparison: None Findings: Bones intact. No dislocations. No significant loss of joint space or osteophytes. No erosions. No radiopaque foreign body. IMPRESSION: 1. No acute findings. No significant degenerative disease. This document has been electronically signed by: Booker Guillen MD on 03/12/2024 18:49:03
--- NOTE | ~2024-03-11 | XR_ITS ---
CLINICAL HISTORY: M79.641 - Pain in right hand Right hand, 3 views COMPARISON: None FINDINGS: No acute fracture. No dislocation. Unremarkable soft tissues. IMPRESSION: No acute findings. This document has been electronically signed by: Ramon Campbell MD on 03/13/2024 04:55:18
== END 2024-03-11 14:02 | disposition home or self-care (01) ==
LOC: HO.HOSX 14:01
PROVIDERS: PCP Internal Medicine; Visit Provider Orthopaedic Surgery
DX: M79.641 Pain in right hand (principal); M79.642 Pain in left hand; M18.12 Unilateral primary osteoarthritis of first carpometacarpal joint, left hand; M18.11 Unilateral primary osteoarthritis of first carpometacarpal joint, right hand
CPT/HCPCS: 73130

== ENCOUNTER 2024-03-11 14:01 | Outpatient (AMB) | payer OTHER, SELFPAY ==
[2024-03-11 14:25] VITALS: BMI 26.5
--- NOTE | 2024-03-11 14:25 | A.OFFVIS_ITS ---
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 States her right is worse than his left. States pain is mainly at base of her CMC joint. Pain is triggered with lifting, mashing movement and waving is painful. Denies numbness and tingling. She recall about 7 yrs ago while walking her dog, her dog leash pulled on her thumb and felt pain for several months. No hx of injection, O.T or surgery. 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 She complains of bilateral thumb pain at the base of the thumb, R>L. She says this is worse with pinching, gripping, and activities like sewing. She says this has been present for several years. She denies any prior treatment options. [facility] Medical History COVID-19 vaccine administered History of palpitations Family history of adverse effect to anesthesia History of postoperative nausea and vomiting History of diverticulosis History of endometrial biopsy Diverticula of intestine Surgical History H/O colonoscopy H/O: History of cholecystectomy Hx of appendectomy H/O: hysterectomy Family History Mother Diverticulosis HTN (hypertension) Father HTN (hypertension) Brother HTN (hypertension) Social History (Updated 03/11/24 @ 14:27 by ROLLY Tellez) Household Members: Spouse and Children Are you a primary career and transition teacher to a significant other at home: No Do you presently have visiting nurse or other home services: No Alcohol intake: current Alcohol intake frequency: holidays/special occasions only Patient Tobacco Use Status: Never used Tobacco Current occupational status: employed 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 Gender identity: Female Female Reproductive History Menstrual Age of Menarche: 16 Review of Systems Const All systems reviewed & are unremarkable except as noted in HPI and below Physical Exam Vital Signs: BMI result Body Mass Index 26.5 Const General: cooperative, healthy appearing and no acute distress Orientation/consciousness: patient oriented x3 HEENT Head: Yes normocephalic and Yes atraumatic Eyes EOM: EOMs intact bilaterally Resp Effort & Inspection: normal respiratory effort and able to speak in complete sentences Cardio Jugular venous distension: no JVD Skin General skin exam: turgor normal Rashes: no rashes Neuro General: patient oriented x3 Extrem Other: Evaluation of Right Upper Extremity: The patient is alert, oriented, and in no acute distress Neuro: Median, Ulnar, Radial nerves motor and sensory intact and sensation is normal to the tips of all digits Vascular: Cap refill brisk ROM: She can make a fist and extend all her digits No locking or catching No tenderness over the a1 justin No tenderness over the 1st dorsal compartment Negative Micah test bilaterally Most Tender over the basal joint + Shoulder sign + CMC grind MCP joint stable on exam, non-tender Skin: No lacerations or abrasions. General: No Ecchymosis. No Erythema or evidence of infection. Radiographs: 3 views of the bilateral hands, with attention to the thumb, were taken and viewed by me today in clinic. They show no fractures or dislocations. there is some early basal joint arthritis with some joint space narrowing and subluxation Psych Appearance: grossly normal Affect: normal affect Attitude: cooperative Assessment & Plan Assessment & Plan (1) Arthritis of carpometacarpal (CMC) joint of right thumb: Code(s): M18.11 - Unilateral primary osteoarthritis of first carpometacarpal joint, right hand Category: Medical (2) Arthritis of carpometacarpal (CMC) joint of left thumb: Code(s): M18.12 - Unilateral primary osteoarthritis of first carpometacarpal joint, left hand Category: Medical Plan Assessment & Plan: 1. Right basal joint arthritis 2. Left basal joint arthritis I educated her about this condition I discussed operative and non-operative treatment options, we also discussed the risks and benefits of injections. I am not recommending surgery at this time. The patient would like to proceed with bracing and activity modification I discussed activity modification, they should limit or avoid any heavy or repetitive pinching or gripping activities She was fitted for a right comfort cool brace to wear with daily activity She can follow up prn. If her symptoms persist or worsen we can discuss possible injections. Scribed for Nesha Conner MD by Kade North, rn medical inpatient services, on 03/11/24 at 2:35 PM, EST. Orders: Orders XR hand RT min 3V Today M79.641 - Pain in right hand XR hand LT min 3V Today M79.642 - Pain in left hand Coding Level of Care Code New Pt Level 4 (92935) Diagnoses Arthritis of carpometacarpal (CMC) joint of right thumb M18.11 Arthritis of carpometacarpal (CMC) joint of left thumb M18.12
== END 2024-03-11 15:54 | disposition home or self-care (01) ==
PROVIDERS: PCP Internal Medicine; Visit Provider Orthopaedic Surgery
DX: M18.0 Bilateral primary osteoarthritis of first carpometacarpal joints (principal)
CPT/HCPCS: 99204

== ENCOUNTER → 2024-03-11 14:47 | Outpatient (BNV) | payer OTHER, SELFPAY | PROVIDERS: PCP Internal Medicine; Visit Provider Student in an Organized Health Care Education/Training Program | DX: M79.641 Pain in right hand (principal) | CPT/HCPCS: 73130 ==

== ENCOUNTER 2024-03-18 09:50 | Outpatient (REF) | payer OTHER, SELFPAY ==
[2024-03-18 10:08] LABS: MANUAL DIFF FLAG NO
--- OUTSIDE RECORDS SUMMARY | 2024-03-18 10:59 | XMS_ITS ---
Author Organization Ronnie Gaona III, MD Address [address] [place] [address] Care Team Providers Care Button Reclaimer Name Role Phone Eugene Victoria MD Primary Care Provider Ronnie Garcia [facility] [phone] Allergies Allergen (clinical drug ingredient) Drug/Non Drug [...] Date Provider Diagnosis Ronnie Gaona III, MD [address] [place] [address] [place] [address] 08/14/2023 Ronnie Gaona Leukopenia, unspecified type D72.819 [...] october, Reason: OV review labs Provider Name:Ronnie Gaona, 05/05/2024 03:45:00 PM, [address] [place] [address] DR [facility] [place], [place], [address], Progress Notes * Olaf CHAPARROaDOB:[birth year] (58 yo F)Acc No.[id number]:08/14/2023 Progress Notes Patient:?Jeevan Olaf Erickson Provider:?Ronnie Gaona MD :1965???Age:58 Y???Sex:Female D ate:08/14/2023 Address:[address] [place], [place] [id number] Pcp:Eugene Victoria MD Subjective: * Chief Complaints: * ???LeukopenicAllergies * HPI: ???COVID-19 Screening:? She returns for ongoing surveillance of her leukopenia. Her white blood cell count is now 3500. She has had no infections. The hematocrit and platelets are within normal limits. She continues to work full-time. She is taking no new medications. Her spleen is not palpable. ?Questions?Have you experienced fever, chills, cough, sore throat, shortness of breath, difficulty breathing, muscle aches, loss of taste or smell??No ?Have you been exposed to the virus within the last 10 days??No ?Have you travelled internationally in the last 10 days??No ?Have you been exposed to COVID-19 in the past??Yes * ROS:?General/Constitutional:?pain?only normal aches and pains.?Chills?denies.?Fatigue?admits.?Fever?denies.?ENT:?Decreased hearing?denies.?Respiratory:?Cough?denies.?Cardiovascular:?Chest pain with exertion?denies.?Dyspnea on exertion?denies.?Shortness of breath?denies.?Gastrointestinal:?Constipation?occasional.?Decreased appetite?denies.?Diarrhea?denies.?Heartburn?denies.?Nausea?denies.?Rectal bleeding?denies.?Vomiting?denies.?Hematology:?bruising?denies.?petechiae?denies.?Swollen glands?none have been noted.?Genitourinary:?Frequent urination?denies.?Musculoskeletal:?Muscle aches?denies.?Painful joints?denies.?Sciatica?denies.?Weakness?denies.?Skin:?Itching?denies.?Rash?denies.?Skin lesion(s)?denies.?Neurologic:?Difficulty speaking?denies.?Dizziness?denies.?Headache?denies.?Low back pain?denies.?Psychiatric:?Depressed mood?denies.? * Medical History:? * Surgical History:?hysterecto my 2015partial colonoscopy to 40 cm, [facility] [place], Dr. Ronnie Rodriguez, negative 2018endometrial biopsy, Dr. Whipple, negative findings 2014laparoscopic cholecystectomy, Dr. Busby, acalculous cholecystitis 2005dental extractions, for multiple loose, no bleeding 1989fractured left leg 01/2019Upper endoscopy 05/2022 * Hospitalization/Major Diagno stic Procedure:?Denies Past Hospitalization * Family History:?Father: dece ased 87 yrs, Dementia, atrial fibrillation, hypertension, diagnosed with Hyperlipidemia, CVD.?Mother: alive 84 yrs, A-fib, diagnosed with HTN.?Son(s): alive.?Daughter(s): alive.?Siblings: alive.?2 brother(s) - healthy. 1 son(s) , 1 [...] of her brothers are hypertensive. * Social History:?Tobacco Use:?Tobacco Use/Smoking?Patient is a?nonsmoker ?Additional Findings: Tobacco Non-User?Aggressive non-smoker ???She was born and [place], [place]. She has been to Arnel for 22 years and they have 2 healthy children. 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 * Medications:?TakingOmeprazol e 40 MG Capsule Delayed Release Oral traZODone HCl 50 MG Tablet Oral Taking Omeprazole 40 MG Capsule Delayed Release Oral Taking traZODone HCl 50 MG Tablet Oral DiscontinuedMelatonin Medication List reviewed and reconciled with the patientDiscontinued Melatonin Medication List reviewed and reconciled with the patient * Allergies:?Penicillin G Elio athineSulfacet-RBactrimno[Allergies Verified] Objective: * Vitals:?Ht: 65, Wt: 174, BMI :28.95, BP: 141/90, HR: 83, Temp: 97.0, Wt-k.93. * Examination: ???General Examination: ?GENERAL APPEARANCE:?pleasant, well nourished, well developed, in no acute distress, calm and relaxed , overweight , woman.?HEAD:?atraumatic, normocephalic.?EYES:?eomi, perrla, anicteric, conjugate.?EARS:?normal.?NOSE:?septum intact.?ORAL CAVITY:?normal, unremarkable.?NECK/THYROID:?no jugular venous distention, no carotid bruit, thyroid normal.?LYMPH NODES:?no enlarged lymph nodes,spleen normal.?SKIN:?no suspicious lesions, anicteric.?HEART:?no clicks, gallops, murmurs, or rubs, regular rhythm, S1, S2 normal, no s3, or vascular bruits.?LUNGS:?clear to auscultation .?BREASTS:?not examined.?ABDOMEN:?bowel sounds normal, no ascites, no organomegaly, no mass.?RECTAL EXAM:?not examined.?MUSCULOSKELETAL:?extremities unremarkable, no clubbing, cyanosis or edema.?PERIPHERAL PULSES:?normal.?NEUROLOGIC:?alert and oriented, cranial nerves 2-12 grossly intact, deep tendon reflexes 2+ symmetrical, motor strength normal upper and lower extremities, sensory exam intact.?PSYCH:?alert, oriented.? Assessment: * Assessment: 1.?Leukopenia, unspecified t ype - D72.819 (Primary), The leukopenia is still present. The white blood cell count fluctuates. There is no evolution into the maturation defect syndrome. She has had no serious infections. She will have a white cell count in 6 months followed by a telephone visit.? Plan: * Treatment: * Procedure Codes:? * Preventive Medicine:? ??Counseling:?Care goal follow-up plan:?Counseling for abnormal BMI given?Yes ?Above Normal BMI Follow-up?Dietary management education, guidance, and counseling, Dietary needs education, Exercise promotion: strength training, Exercise promotion: stretching, Feeding regime, Giving encouragement to exercise, Lifestyle education regarding diet, Nutrition / feeding management, Nutrition therapy, Prescribed activity/exercise education, Prescribed diet education, Prescribed dietary intake, Special diet education, Weight monitoring , Intervention, Order not done: Medical or Other reason not done * Follow Up:?end of October (Reason: OV review labs ) * Images: * Sign off status: Completed true * Provider:?Ronnie Gaona MD Date:?10/2023 Generated for Nyasia soto/Ayleen/eTransmitting on:?03/18/2024 10:59 AM EST History and Physical Notes * HPI (History of Present Illness) Category Sub-Category Detail Notes COVID-19 Screening Questions Have you had any new onset fever, chills, cough, congestion, sore throat, shortness of breath, muscle aches?: No Have you been exposed to the virus withi n the last 10 days?: No Have you travelled internationally in e last 10 days?: No Have you been [...]
--- OUTSIDE RECORDS SUMMARY | 2024-03-18 10:59 | XMS_ITS ---
Author Organization Ronnie Gaona III, MD Address [address] [place] [address] Care Team Providers Care Intake Worker Name Role Phone Eugene Victoria MD Primary Care Provider Ronnie Garcia [facility] [phone] Allergies Allergen (clinical drug ingredient) Drug/Non Drug Allergy documented on EMR Reaction Allergy Type Onset Date Status Sulfacet-R Unknown Drug Allergy Active Penicillin G Benzathine Unknown Drug Allergy Active sulfamethoxazole / trimethoprim Bactrim Unknown Drug Allergy Active REASON FOR VISIT Leukopenia, Allergies Medications Medication SIG (Take, Route, Fr equency, Duration) Notes Start Date End Date Status Melatonin Active Omeprazole 40 MG Oral Act dani Social History Tobacco Use: Social History Observation Description Date Details (start date - stop date) Never Smoker NA - NA Tobacco Use/Smoking Question Answer Notes Patient is a nonsmoker Additional Findings: Tobacco Non-User Aggressive non-smoker Vital Signs Temperature 97.9 degrees Fahrenheit 02/20/19 24 Blood pressure systolic 110 mm Hg 02/20/19 24 Blood pressure diastolic 70 mm Hg 024 Heart Rate 64 /min 02/20/2023 Height 65 in 02/20/2023 Weight 172 lbs 02/20/2023 BMI 28.62 kg/m2 02/20/2023 Encounters Encounter Location Date Provider Diagnosis Ronnie Gaona III, MD [address] [place] [address] [place] [address] 02/20/2023 Ronnie Gaona Leukopenia, unspecified type D72.819 and Overweight E66.3 Assessments Encounter Date Diagnosis (ICD Code) Assessment Notes Treatment Notes Treatment Clinical Notes 02/20/2023 Leukopenia, unspecified type (ICD-10 - D72.819) The issue appears to have resolved. There is no evolution into the maturation defect syndrome. She has had no serious infections. She will have a white cell count in 6 months followed by a telephone visit. 02/20/2023 Overweight (ICD-10 - E66.3) Her body mass index is slightly elevated. She has lost 1 pound. We discussed diet and nutrition today. Plan Of Treatment Medication Medication Name Sig Start Date Stop Date Notes Melatonin Omeprazole 40 MG Oral Pending Test Test Name Order Date PROFILE, RANDOM (COMPREHENSIVE METABOLIC ) 02/20/2023 CBC WITH AUTO DIFF 02/20/2023 Next Appt Details Follow Up: 6 Months, Reason: OV Provider Name:Ronnie Gaona, 05/05/2024 03:45:00 PM, [address] [place] [address] [address], [place], [address], Progress Notes * Ovi CHAPARROB:[birth year] (58 yo F)Acc No.[id number]:02/20/2023 Progress Notes Patient:?KarlOlaf Dave Provider:?Ronnie Gaona MD :1965???Age:58 Y???Sex:Female D ate:02/20/2023 Address:[address] [place], [place] [id number] Pcp:Eugene Victoria MD Subjective: * Chief Complaints: * ???LeukopeniaAllergies * HPI: ???COVID-19 Screening:?Questions?Have you experienced fever, chills, cough, sore throat, shortness of breath, difficulty breathing, muscle aches, loss of taste or smell??No ?Have you been exposed to the virus within the last 10 days??No ?Have you travelled internationally in the last 10 days??No ?Have you been exposed to COVID-19 in the past??Yes ? She returns for evaluation and management of a low white blood cell count. She has chronic neutropenia but has had no significant infections. Her white blood cell count is 4000, which is slightly lower than past values. She has [address] neutrophils. The red blood cells and platelets are unremarkable. She seems healthy and well today. No change in her regimen was made. Observation was ccontinuued. * ROS:?General/Constitutional:?pain?only normal aches and pains.?Chills?denies.?Fatigue?admits.?Fever?denies.?ENT:?Decreased hearing?denies.?Respiratory:?Cough?denies.?Cardiovascular:?Chest pain with exertion?denies.?Dyspnea on exertion?denies.?Shortness of breath?denies.?Gastrointestinal:?Constipation?occasional.?Decreased appetite?denies.?Diarrhea?denies.?Heartburn?denies.?Nausea?denies.?Rectal bleeding?denies.?Vomiting?denies.?Hematology:?bruising?denies.?petechiae?denies.?Swollen glands?none have been noted.?Genitourinary:?Frequent urination?denies.?Musculoskeletal:?Muscle aches?denies.?Painful joints?denies.?Sciatica?denies.?Weakness?denies.?Skin:?Itching?denies.?Rash?denies.?Skin lesion(s)?denies.?Neurologic:?Difficulty speaking?denies.?Dizziness?denies.?Headache?denies.?Low back pain?denies.?Psychiatric:?Depressed mood?denies.? * Medical History:? * Surgical History:?hysterecto my 2015partial colonoscopy to 40 cm, [facility], Dr. Ronnie Rodriguez, negative 2018endometrial biopsy, Dr. [...] Tobacco Non-User?Aggressive non-smoker ???She was born and [place], [place]. She has been to Arnel for 22 years and they have 2 healthy children. 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 * Medications:?TakingMelatonin Omeprazole 40 MG Capsule Delayed Release Oral Medication List reviewed and reconciled with the patientTaking Melatonin Taking Omeprazole 40 MG Capsule Delayed Release Oral Medication List reviewed and reconciled with the patient * Allergies:?Penicillin G Elio athineSulfacet-RBactrimno[Allergies Verified] Objective: * Vitals:?Ht: 65, Wt:172, BMI: 28.62, BP: 110/70, HR:64, Temp:97.9. * Examination: ???General Examination: ?GENERAL APPEARANCE:?pleasant, well [...] normal, no ascites, no organomegaly, no mass , overweight.?RECTAL EXAM:?not examined.?MUSCULOSKELETAL:?extremities unremarkable, no clubbing, cyanosis or edema.?PERIPHERAL PULSES:?normal.?NEUROLOGIC:?alert and oriented, cranial nerves 2-12 grossly intact, deep tendon reflexes 2+ symmetrical, motor strength normal upper and lower extremities, sensory exam intact.?PSYCH:?alert, oriented.? Assessment: * Assessment: 1.?Leukopenia, unspecified t ype - D72.819 (Primary), The issue appears to have resolved. There is no evolution into the maturation defect syndrome. She has had no serious infections. She will have a white cell count in 6 months followed by a telephone visit.?2.?Overweight - E66.3, Her body mass index is slightly elevated. She has lost 1 pound. We discussed diet and nutrition today.? Plan: * Treatment: 2.?Overweight?LAB: PROFILE, RANDOM (COMPREHENSIVE METABOLIC) ?LAB: CBC WITH AUTO DIFF * Procedure Codes:? * Preventive Medicine:? ??Counseling:?Care [...] or Other reason not done * Follow Up:?6 Months (Reason: OV) * Images: * Sign off status: Completed true * Provider:?Ronnie Gaona MD Date:?02/05 Generated for Kattyi brittany/Ayleen/eTransmitting on:?03/18/2024 10:59 AM EST History and Physical [...] normal, no ascites, no organomegaly, no mass , overweight NEUROLOGIC: alert and oriented, cranial nerves 2-12 [...]
--- OUTSIDE RECORDS SUMMARY | 2024-03-18 11:00 | XMS_ITS | Patient Health Record ---
Author Organization Ronnie Gaona III, MD Address [address] [place] [address] Care Team Providers Care Kennel Aide Name Role Phone Eugene Victoria MD Primary Care Provider Ronnie Garcia Unavailable [phone] Allergies Allergen (clinical drug ingredient) Drug/Non Drug Allergy documented on EMR Reaction Allergy Type Onset Date Status Sulfacet-R Unknown Drug Allergy Active Penicillin G Benzathine Unknown Drug Allergy Active sulfamethoxazole / trimethoprim Bactrim Unknown Drug Allergy Active Results Component Value Reference Range Notes Complete Blood Count Auto Di ff Reviewed date:08/15/2023 06:58:24 AM Interpretation: Performing Lab:[facility], [address] [place] [phone] Notes/Report: White Blood Count 3.3 4.8-10.8 X10*3/uL Red Blood Count 4.36 4.20-5.50 X10*6/uL Hemoglobin 13.8 12.0-16.0 g/dl Hematocrit 39.5 37.0-47.0 % Mean Corpuscular Volume 90.6 80.0-98.0 fL Mean Corpuscular Hemoglobin 31.7 27.0-33.0 pg Mean Corpuscular HGB Conc 34.9 31.0-35.0 g/dl Red Cell Distribution Width 12.6 11.0-16.0 % Platelet Count 336 160-400 X10*3/uL Mean Platelet Volume 9.2 9.4-12.3 fL Neutrophils Percent Auto 45.5 45-73 % Imm Gran Pct Auto 0.3 0.0-0.4 % Lymphocytes Percent Auto 44.3 20-40 % Monocytes Percent Auto 8.1 2-11 % Eosinophils Percent Auto 0.9 0-4 % Basophils Percent Auto 0.9 0-2 % NRBC Pct Auto 0.0 0.0-0.2 /100WBC Neutrophils Absolute Auto 1.5 2.0-8.3 x10*3/u L Imm Gran Abs Auto 0.01 0.00-0.03 X10*3/uL Lymphocytes Absolute Auto 1.5 1.2-4.9 X10*3/u L Monocytes Absolute Auto 0.3 0.1-1.2 X10*3/uL Eosinophils Absolute Auto 0.0 0.0-0.4 X10*3/u L Basophils Absolute Auto 0.0 0.0-0.2 X10*3/uL NRBC Abs Auto 0.000 0.0-0.012 X10*3/uL Comprehensive Met. Panel Reviewed date:08/15/2023 06:58:24 AM Interpretation: Performing Lab:[facility], [address] [place] [id number] Notes/Report: Sodium 141 135-145 mmol/L Potassium 4.2 3.3-5.1 mmol/L Chloride 107 96-108 mmol/L Carbon Dioxide 24 22-29 mmol/L Anion Gap 14 12-20 Blood Urea Nitrogen 12 9-16 mg/dL Creatinine 0.80 0.5-1.4 mg/dL Estimated Glomerular Filt Rate > 60 NOTE: For -[place] individuals, multiply the result by 1.210. Chronic Kidney Disease: Estimated GFR < 60 mL/min/1.73m2 Severe Kidney Disease: Estimated GFR < 15 mL/min/1.73m2 Glucose Random 124 60-115 mg/dL Calcium 9.7 8.4-10.2 mg/dL Bilirubin Total 0.9 0.0-1.0 mg/dL Aspartate Amino Transferase 18 5-31 U/L Alanine Aminotransferase 19 0-31 U/L Total Protein 7.5 6.5-8.0 g/dL Albumin Level 4.6 3.5-5.0 g/dL Alkaline Phosphatase 66 39-117 U/L Complete Blood Count Auto Di ff Reviewed date:12/10/2023 05:49:51 AM Interpretation: Performing Lab:[facility], [address] [place] [address] Notes/Report: White Blood Count 4.4 4.8-10.8 X10*3/uL Red Blood Count 4.49 4.20-5.50 X10*6/uL Hemoglobin 14.1 12.0-16.0 g/dl Hematocrit 41.6 37.0-47.0 % Mean Corpuscular Volume 92.7 80.0-98.0 fL Mean Corpuscular Hemoglobin 31.4 27.0-33.0 pg Mean Corpuscular HGB Conc 33.9 31.0-35.0 g/dl Red Cell Distribution Width 12.5 11.0-16.0 % Platelet Count 321 160-400 X10*3/uL Mean Platelet Volume 9.4 9.4-12.3 fL Neutrophils Percent Auto 53.7 45-73 % Imm Gran Pct Auto 0.2 0.0-0.4 % Lymphocytes Percent Auto 37.5 20-40 % Monocytes Percent Auto 7.4 2-11 % Eosinophils Percent Auto 0.5 0-4 % Basophils Percent Auto 0.7 0-2 % NRBC Pct Auto 0.0 0.0-0.2 /100WBC Neutrophils Absolute Auto 2.3 2.0-8.3 x10*3/u L Imm Gran Abs Auto 0.01 0.00-0.03 X10*3/uL Lymphocytes Absolute Auto 1.6 1.2-4.9 X10*3/u L Monocytes Absolute Auto 0.3 0.1-1.2 X10*3/uL Eosinophils Absolute Auto 0.0 0.0-0.4 X10*3/u L Basophils Absolute Auto 0.0 0.0-0.2 X10*3/uL NRBC Abs Auto 0.000 0.0-0.012 X10*3/uL Reason For Referral No Information Medications Medication SIG (Take, Route, Fr equency, Duration) Notes Start Date End Date Status traZODone HCl 50 MG Oral Active Melatonin Active Omeprazole 40 MG Oral Act dani Social History Tobacco Use: Social History Observation Description Date Details (start date - stop date) Never Smoker NA - NA Tobacco Use/Smoking Question Answer Notes Patient is a nonsmoker Additional Findings: Tobacco Non-User Aggressive non-smoker Alcohol Screen Question Answer Notes Did you have a drink containing alcohol in the p ast year? No Points 0 Interpretation Negative Problems Problem Type SNOMED Code ICD Code Onset Dates Problem Status W/U Status Risk Notes Problem 551529557 Overweight (E66.3) Active confirmed Her body mass index is slightly elevated. She has lost 1 pound. We discussed diet and nutrition today. Problem 29889654 Palpitations (R00.2) Active confirmed She has had no palpitations. Since her last visit. Her cardiac examination today was normal. Problem 30562406 Leukopenia, unspecified type (D72.819) Active confirmed The leukopeni a is still present. The white blood cell count fluctuates. There is no evolution into the maturation defect syndrome. She has had no serious infections. She will have a white cell count in 6 months followed by a telephone visit. Problem 69369437 Non-seasonal allergic rhinitis, unspecified trigger (J30.89) Active confirmed She is doing well on current medications and no changes necessary. Vital Signs Heart Rate 83 /min 08/14/2023 Temperature 97.0 degrees Fahrenheit 08/14/2023 Blood pressure diastolic 90 mm Hg 08/14/2023 Height 65 in 11/05/2023 Blood pressure systolic 141 mm Hg 08/14/2023 Weight 174 lbs 11/05/2023 BMI 28.95 kg/m2 11/05/2023 Encounters Encounter Location Date Provider Diagnosis Ronnie Gaona III, MD [address] [place] [address] [place] [address] 08/14/2023 Ronnie Gaona Leukopenia, unspecified type D72.819 Ronnie Gaona III, MD [address] [place] [address] [place] [address] 11/05/2023 Ronnie Gaona Leukopenia, unspecified type D72.819 ; Overweight E66.3 ; Palpitations R00.2 and Non-seasonal allergic rhinitis, unspecified trigger J30.89 Assessments Encounter Date Diagnosis (ICD Code) Assessment Notes Treat ment Notes Treatment Clinical Notes 08/14/2023 Leukopenia, unspecified [...] We discussed diet and nutrition today. 11/05/2023 Leukopenia, unspecified type (ICD-10 - D72.819) The leukopenia is still present. The white blood cell count fluctuates. There is no evolution into the maturation defect syndrome. She has had no serious infections. She will have a white cell count in 6 months followed by a telephone visit. 11/05/2023 Palpitations (ICD-10 - R00.2) She has had no palpitations. Since her last visit. Her cardiac examination today was normal. 11/05/2023 Non-seasonal allergic rhinitis, unspecified trigger (ICD-10 - J30.89) She is doing well on current medications and no changes necessary. Plan Of Treatment Pending Test Test Name Order Date Cholesterol, Total 07/28/2020 PROFILE, RANDOM (COMPREHENSIVE METABOLIC ) 08/03/2020 PROFILE, RANDOM (COMPREHENSIVE METABOLIC ) 08/02/2021 PROFILE, RANDOM (COMPREHENSIVE METABOLIC ) 01/06/2021 PROFILE, RANDOM (COMPREHENSIVE METABOLIC ) 02/20/2023 PROFILE, RANDOM (COMPREHENSIVE METABOLIC ) 02/01/2021 CBC w DIFF 02/01/2021 CBC w DIFF 08/14/2023 CBC w DIFF 12/09/2018 CBC w DIFF 08/02/2021 CBC w DIFF 02/14/2022 CBC w DIFF 01/06/2021 CBC w DIFF 04/21/2019 CBC with MANUAL DIFFERENTIAL 01/20/2019 CBC w/o DIFF 08/03/2020 CBC WITH AUTO DIFF 02/20/2023 CBC WITH AUTO DIFF 11/05/2023 Next Appt Details Provider Name:Ronnie Lawrencene, 05/05/2024 03:45:00 PM, [address] [place] [address] [address], [place], [address], Insurance Providers Payer Name Payer Address Payer Phone Subscriber Number Group Number Insured Name Patient Relationship to Insured Coverage Start Date Coverage End Date [employer] [place] [address] [address] [place] [address] [id number] [employer] Vinicius Erickson Self - patient is the insured Medical (General) History Medical History History ICD Code leukopenia Hyperlipidemia E78.5 acalculous cholecystitis November 2004 uterine fibroids hiatal hernia and reflux. 1996 left ovarian cyst syncopal episode is 38 appendectomy age 18 tibial biopsied in childhood allergic rhinitis palpitations fraternal twins overweight Surgical History Surgery Date(Month/Year) Upper endoscopy 05/2022 fractured left leg 01/2019 dental extractions, for multiple loose, no bleeding 1988 laparoscopic cholecystectomy, Dr. Busby, acalculous cholecystitis 2004 endometrial biopsy, Dr. Whipple, negative findings 2013 partial colonoscopy to 40 cm, [facility], Dr. Sarita Rodriguez, negative 2017 hysterectomy 2014
--- OUTSIDE RECORDS SUMMARY | 2024-03-18 11:00 | XMS_ITS ---
Author Organization Ronnie Gaona III, MD Address [address] [facility] [address] [place] [address] Care Team Providers Care Real Estate Management Specialist Name Role Phone Eugene Victoria MD Primary Care Provider Ronnie Garcia [phone] Allergies Allergen (clinical drug ingredient) Drug/Non Drug [...] Date Provider Diagnosis Ronnie Gaona III, MD [address] [place] [address] [place] [address] 11/05/2023 Ronnie Gaona Leukopenia, unspecified type D72.819 [...] OV Provider Name:Ronnie Gaona, 05/05/2024 03:45:00 PM, [address] [place] [address], [address], Progress Notes * Ovi CHAPARROB:[birth year] (58 yo F)Acc No.[id number]:11/05/2023 Patient:?Olaf CHAPARRO Provider:?Ronnie Gaona MD :1965???Age:58 Y???Sex:Female D ate:11/05/2023 [facility] Pcp:Eugene Victoria MD Subjective: * Chief Complaints: * ???LeukopeniaAllergies * HPI: ???:?She returns for management of her iron deficiency and leukopenia.? Her white blood cell count has fallen to 3300.? Her? hemoglobin and hematocrit normal.? Platelet count is unremarkable she has had no infections since her last visit.? She will continue on observation. ?Telehealth?Location of provider rendering services:?{...} [address] [facility] [address] ?Location of patient:?address listed in demographics for today's visit ?Patient identification confirmed using:?Name, ?Telehealth method:?Telephone only. Patient not visible to care provider. ?Consent:?Patient verbally consented to treatment, Patient verbally consented to billing insurance company, Patient informed of any privacy concerns related to method of visit ?Total time spent with patient (mins)?15 * ROS:?General/Constitutional:?pain?only normal aches and pains.?Chills?denies.?Fatigue?admits.?Fever?denies.?ENT:?Decreased hearing?denies.?Respiratory:?Cough?denies.?Cardiovascular:?Chest pain with exertion?denies.?Dyspnea on exertion?denies.?Shortness of breath?denies.?Gastrointestinal:?Constipation?denies.?Decreased appetite?denies.?Diarrhea?denies.?Heartburn?denies.?Nausea?denies.?Rectal bleeding?denies.?Vomiting?denies.?Hematology:?bruising?denies.?petechiae?denies.?Swollen glands?none have been noted.?Genitourinary:?Frequent urination?denies.?Musculoskeletal:?Muscle aches?denies.?Painful joints?denies.?Sciatica?denies.?Weakness?denies.?Skin:?Itching?denies.?Rash?denies.?Skin lesion(s)?denies.?Neurologic:?Difficulty speaking?denies.?Dizziness?denies.?Headache?denies.?Low back pain?denies.?Psychiatric:?Depressed mood?denies.? * Medical History:? * Surgical History:?hysterecto my 2015[place] 40 [place] [facility] [place] Ronnie [place], negative 2018endometrial biopsy, Dr. [...] Tobacco Non-User?Aggressive non-smoker ???She was born and [place], [place]. She has been to Arnel for 22 years and they have 2 healthy children. 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 * Medications:?TakingMelatonin Omeprazole 40 MG Capsule Delayed Release Oral traZODone HCl 50 MG Tablet Oral Medication List reviewed and reconciled with the patientTaking Melatonin Taking Omeprazole 40 MG Capsule Delayed Release Oral Taking traZODone HCl 50 MG Tablet Oral Medication List reviewed and reconciled with the patient * Allergies:?Penicillin G Elio athineSulfacet-RBactrimno[Allergies Verified] Objective: * Vitals:?Ht: 65, Wt: 174, BMI :28.95, Wt-k.93. * ???Past Orders: Lab:Complete Blood Count Aut o Diff * Collection Date 08/13/2023 02/15/2023 08/10/2022 Collection Time 10:17 AM 12:33 PM 01:42 PM Order Date 08/13/2023 02/15/2023 08/10/2022 White Blood Count 3.3?L (Ref Range: 4.8-10.8 X10*3/uL) 4.0?L (Ref Range: 4.8-10.8 X10*3/uL) 5.5 (Ref Range: [...] (Ref Range: 160-400 X10*3/uL) Mean Platelet Volume 9.2?L (Ref Range: 9.4-12.3 fL) 9.0?L (Ref Range: 9.4-12.3 fL) 9.5 (Ref Range: 9.4-12.3 fL) Neutrophils Percent Auto 45.5 (Ref Range: 45-73 %) 40.8?L (Ref Range: 45-73 %) 51.9 (Ref Range: 45-73 %) Imm Gran Pct Auto 0.3 (Ref Range: 0.0-0.4 %) 0.3 (Ref Range: 0.0-0.4 %) 0.4 (Ref Range: 0.0-0.4 %) Lymphocytes Percent Auto 44.3?H (Ref Range: 20-40 %) 49.1?H (Ref Range: 20-40 %) 39.9 (Ref Range: [...] (Ref Range: 0.0-0.2 /100WBC) Neutrophils Absolute Auto 1.5?L (Ref Range: 2.0-8.3 x10*3/uL) 1.6?L (Ref Range: 2.0-8.3 x10*3/uL) 2.8 (Ref Range: [...] 60 > 60 > 60 Glucose Random 124?H (Ref Range: 60-115 mg/dL) 106 (Ref Range: 60-115 mg/dL) 113 (Ref Range: 60-115 mg/dL) Calcium 9.7 (Ref Range: 8.4-10.2 mg/dL) 9.9 (Ref Range: 8.4-10.2 mg/dL) 9.0 (Ref Range: 8.4-10.2 mg/dL) Assessment: * Assessment: 1.?Leukopenia, unspecified t ype - D72.819 (Primary)???Notes :The leukopenia is still present. The white blood cell count fluctuates. There is no evolution into the maturation defect syndrome. She has had no serious infections. She will have a white cell count in 6 months followed by a telephone visit.???2.?Overweight - E66.3???Notes :Her body mass index is slightly elevated. She has lost 1 pound. We discussed diet and nutrition today.???3.?Palpitations - R00.2???Notes :She has had no palpitations. Since her last visit. Her cardiac examination today was normal.???4.?Non- seasonal allergic rhinitis, unspecified trigger - J30.89???Notes :She is doing well on current medications and no changes necessary.??? Plan: * Treatment: * Procedure Codes:? * [...] status: Completed true * Provider:?Ronnie Gaona MD Date:?10/08 Generated for Nyasia soto/Ayleen/Bryan on:?03/18/2024 10:59 AM EST History and Physical Notes * HPI (History of Present Illness) Category Sub-Category Detail Notes Telehealth Location of [facility] rendering services:: {...} [address] [facility] [address] [place] [address] Location of patient:: address listed in demographics for today's visit Patient identification confirmed using:: Name, Telehealth method:: Telephone only. Hsy ent not visible to care provider. Consent:: Patient verbally c onsented to treatment, Patient verbally consented to billing insurance company, Patient informed of any privacy concerns related to method of visit Total time spent with patient (mins): 15
[2024-03-18 11:27] LABS: Basophils Percent Auto 0.7 % (0-2); Eosinophils Percent Auto 0.7 % (0-4); Hematocrit 39.7 % (37.0-47.0); Hemoglobin 13.7 g/dl (12.0-16.0); Imm Gran Abs Auto 0.01 X10*3/uL (0.00-0.03); Imm Gran Pct Auto 0.2 % (0.0-0.4); Lymphocytes Absolute Auto 1.7 X10*3/uL (1.2-4.9); Lymphocytes Percent Auto 41.1 % (20-40); Mean Corpuscular HGB Conc 34.5 g/dl (31.0-35.0); Mean Corpuscular Hemoglobin 31.1 pg (27.0-33.0); Mean Platelet Volume 9.1 fL (9.4-12.3); Monocytes Absolute Auto 0.4 X10*3/uL (0.1-1.2); Monocytes Percent Auto 8.3 % (2-11); Neutrophils Absolute Auto 2.1 x10*3/uL (2.0-8.3); Platelet Count 365 X10*3/uL (160-400); Red Blood Count 4.41 X10*6/uL (4.20-5.50); Red Cell Distribution Width 12.6 % (11.0-16.0); White Blood Count 4.2 X10*3/uL (4.8-10.8)
[2024-03-18 11:31] LABS: Estimated Average Glucose 128 mg/dL; Hemoglobin A1c % 6.1 % (<6.0); Total Hemoglobin (HGBA1C) 3409.4067 umol/L
[2024-03-18 12:58] LABS: Alanine Aminotransferase 20 U/L (0-31); Albumin Level 4.5 g/dL (3.5-5.0); Alkaline Phosphatase 72 U/L (39-117); Anion Gap 11 (12-20); Aspartate Amino Transferase 33 U/L (5-31); Bilirubin Direct 0.2 mg/dL (0.0-0.5); Blood Urea Nitrogen 11 mg/dL (9-16); Calcium 9.3 mg/dL (8.4-10.2); Carbon Dioxide 25 mmol/L (22-29); Chloride 109 mmol/L (96-108); Cholesterol 193 mg/dL (<200); Estimated Glomerular Filt Rate > 60; Glucose Fasting 118 mg/dL (60-99); HDL Cholesterol 51 mg/dL (>40); LDL Cholesterol Calculated 84 mg/dL (<100); Potassium 4.2 mmol/L (3.3-5.1); Sodium 141 mmol/L (135-145); Total Protein 7.8 g/dL (6.5-8.0); Triglycerides 292 mg/dL (<150)
== END 2024-03-18 09:51 | disposition home or self-care (01) ==
LOC: HO.LAB 09:50
PROVIDERS: PCP Internal Medicine; Visit Provider Internal Medicine
DX: K21.9 Gastro-esophageal reflux disease without esophagitis (principal); E78.00 Pure hypercholesterolemia, unspecified; R73.03 Prediabetes
CPT/HCPCS: 36415; 80048; 80061; 80076; 82550; 83036; 85025

== ENCOUNTER 2024-05-02 13:43 | Outpatient (REF) | payer OTHER, SELFPAY ==
[2024-05-02 13:55] LABS: MANUAL DIFF FLAG NO
[2024-05-02 14:42] LABS: Basophils Percent Auto 0.8 % (0-2); Eosinophils Percent Auto 0.6 % (0-4); Hematocrit 36.7 % (37.0-47.0); Hemoglobin 12.7 g/dl (12.0-16.0); Imm Gran Abs Auto 0.01 X10*3/uL (0.00-0.03); Imm Gran Pct Auto 0.2 % (0.0-0.4); Lymphocytes Absolute Auto 2.1 X10*3/uL (1.2-4.9); Lymphocytes Percent Auto 43.5 % (20-40); Mean Corpuscular HGB Conc 34.6 g/dl (31.0-35.0); Mean Corpuscular Hemoglobin 31.3 pg (27.0-33.0); Mean Corpuscular Volume 90.4 fL (80.0-98.0); Monocytes Absolute Auto 0.4 X10*3/uL (0.1-1.2); Monocytes Percent Auto 8.5 % (2-11); Neutrophils Absolute Auto 2.2 x10*3/uL (2.0-8.3); Neutrophils Percent Auto 46.4 % (45-73); Platelet Count 338 X10*3/uL (160-400); Red Blood Count 4.06 X10*6/uL (4.20-5.50); Red Cell Distribution Width 12.6 % (11.0-16.0); White Blood Count 4.7 X10*3/uL (4.8-10.8)
== END 2024-05-02 13:44 | disposition home or self-care (01) ==
LOC: HO.LAB 13:43
PROVIDERS: PCP Internal Medicine Medical Oncology; Visit Provider Internal Medicine Medical Oncology
DX: D72.819 Decreased white blood cell count, unspecified (principal)
CPT/HCPCS: 36415; 85025

== ENCOUNTER 2024-07-07 15:25 | Outpatient (REF) | payer OTHER, SELFPAY ==
--- OUTSIDE RECORDS SUMMARY | 2024-07-07 16:38 | XMS_ITS ---
Author Organization Ronnie Gaona III, MD Address [address] [place] [address] Care Team Providers Care Stem Cutter Name Role Phone Eugene Victoria MD Primary Care Provider Ronnie Garcia Unavailable [phone] Allergies Allergen (clinical drug ingredient) Drug/Non Drug [...] Date Provider Diagnosis Ronnie Gaona III, MD [address] [place] [address] [place] [address] 05/05/2024 Ronnie Gaona Leukopenia, unspecified type D72.819 [...] labs Provider Name:Ronnie Gaona, 11/04/2024 03:30:00 PM, [address] [place] [address] REG[facility], [place], [address], Progress Notes * Olaf CHAPARROaDOB:[birth year] (59 yo F)Acc No.[id number]:05/05/2024 Progress Notes Patient:?Olaf CHAPARRO Provider:?Ronnie Gaona MD :1965???Age:59 Y???Sex:Female D ate:05/05/2024 Address:[address] [place], [place] [phone] Pcp:Eugene Victoria MD Subjective: * Chief Complaints: * ???LeukocytopeniaAllergic rh initis * HPI: ???COVID-19 Screening:? She returns to the office for ongoing surveillance of a low white blood cell count.? Since her last visit she has been working full-time and has had no significant bacterial infections.? She reports a URI but nothing more serious.? Her examination today was unremarkable.Her white blood cell count has improved to 4.7 with a normal differential. Observation was continued.? She will be seen back in 6 months.? Unless there is deterioration she will then be seen once a year. ?Questions?Have you had any new onset fever, chills, cough, congestion, sore throat, shortness of breath, muscle aches??No * ROS:?General/Constitutional:?pain?only normal aches and pains.?Chills?denies.?Fatigue?admits.?Fever?denies.?ENT:?Decreased hearing?denies.?Respiratory:?Cough?denies.?Cardiovascular:?Chest pain with exertion?denies.?Dyspnea on exertion?denies.?Shortness of breath?denies.?Gastrointestinal:?Constipation?occasional.?Decreased appetite?denies.?Diarrhea?denies.?Heartburn?denies.?Nausea?denies.?Rectal bleeding?denies.?Vomiting?denies.?Hematology:?bruising?denies.?petechiae?denies.?Swollen glands?none have been noted.?Genitourinary:?Frequent urination?denies.?Musculoskeletal:?Muscle aches?denies.?Painful joints?denies.?Sciatica?denies.?Weakness?denies.?Skin:?Itching?denies.?Rash?denies.?Skin lesion(s)?denies.?Neurologic:?Difficulty speaking?denies.?Dizziness?denies.?Headache?denies.?Low back pain?denies.?Psychiatric:?Depressed mood?denies.? * Medical History:? * Surgical History:?hysterecto my 2015partial colonoscopy to 40 cm, [facility] [place], Dr. Ronnie Rodriguez, negative 2018endometrial biopsy, Dr. Whipple, negative findings 2013laparoscopic cholecystectomy, Dr. Busby, acalculous cholecystitis 2004dental extractions, for multiple loose, no bleeding 1988fractured left leg 01/2019Upper endoscopy 05/2022 * Hospitalization/Major Diagno stic Procedure:?Denies Past Hospitalization * Family History:?Father: dece ased 87 yrs, Dementia, atrial fibrillation, hypertension, diagnosed with CVD, Hyperlipidemia.?Mother: alive 84 yrs, A-fib, diagnosed with HTN.?Son(s): [...] Tobacco Non-User?Aggressive non-smoker ???She was born and [place], [place]. She has been to Arnel for 22 years and they have 2 healthy children. 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 * Medications:?TakingMelatonin Omeprazole 40 MG Capsule Delayed Release Oral traZODone HCl 50 MG Tablet Oral Medication List reviewed and reconciled with the patientTaking Melatonin Taking Omeprazole 40 MG Capsule Delayed Release Oral Taking traZODone HCl 50 MG Tablet Oral Medication List reviewed and reconciled with the patient * Allergies:?Penicillin G Elio athineSulfacet-RBactrimno[Allergies Verified] Objective: * Vitals:?Ht: 65, Wt: 171, BMI :28.45, BP: 141/81, HR: 86, Temp: 98.8, Wt-k.56. * ???Past Orders: Lab:Complete Blood Count Aut o Diff * Collection Date 05/02/2024 11/05/2023 08/13/2023 Collection Time 01:53 PM 10:52 AM 10:17 AM Order Date 05/02/2024 11/05/2023 08/13/2023 White Blood Count 4.7?L (Ref Range: 4.8-10.8 X10*3/uL) 4.4?L (Ref Range: 4.8-10.8 X10*3/uL) 3.3?L (Ref Range: 4.8-10.8 X10*3/uL) Red Blood Count 4.06?L (Ref Range: 4.20-5.50 X10*6/uL) 4.49 (Ref Range: 4.20-5.50 X10*6/uL) 4.36 (Ref Range: 4.20-5.50 X10*6/uL) Hemoglobin 12.7 (Ref Range: 12.0-16.0 g/dl) 14.1 (Ref Range: 12.0-16.0 g/dl) 13.8 (Ref Range: 12.0-16.0 g/dl) Hematocrit 36.7?L (Ref Range: 37.0-47.0 %) 41.6 (Ref Range: [...] (Ref Range: 160-400 X10*3/uL) Mean Platelet Volume 9.0?L (Ref Range: 9.4-12.3 fL) 9.4 (Ref Range: 9.4-12.3 fL) 9.2?L (Ref Range: 9.4-12.3 fL) Neutrophils Percent Auto 46.4 (Ref Range: 45-73 %) 53.7 (Ref Range: 45-73 %) 45.5 (Ref Range: 45-73 %) Imm Gran Pct Auto 0.2 (Ref Range: 0.0-0.4 %) 0.2 (Ref Range: 0.0-0.4 %) 0.3 (Ref Range: 0.0-0.4 %) Lymphocytes Percent Auto 43.5?H (Ref Range: 20-40 %) 37.5 (Ref Range: 20-40 %) 44.3?H (Ref Range: 20-40 %) Monocytes Percent Auto [...] 2.0-8.3 x10*3/uL) 2.3 (Ref Range: 2.0-8.3 x10*3/uL) 1.5?L (Ref Range: 2.0-8.3 x10*3/uL) Imm Gran Abs [...] 0.000 (Ref Range: 0.0-0.012 X10*3/uL) * Examination: ???General Examination: ?GENERAL APPEARANCE:?pleasant, well nourished, well developed, in no acute distress, calm and relaxed, overweight, woman.?HEAD:?atraumatic, normocephalic.?EYES:?eomi, perrla, anicteric, conjugate.?EARS:?normal.?NOSE:?septum intact.?ORAL CAVITY:?normal, unremarkable.?NECK/THYROID:?no jugular venous distention, no carotid bruit, thyroid normal.?LYMPH NODES:?no enlarged lymph nodes,spleen normal.?SKIN:?no suspicious lesions, anicteric.?HEART:?no clicks, gallops, murmurs, or rubs, regular rhythm, S1, S2 normal, no s3, or vascular bruits.?LUNGS:?clear to auscultation .?BREASTS:??no masses palpable bilaterally.?ABDOMEN:?bowel sounds normal, no ascites, no organomegaly, no mass, overweight.?RECTAL EXAM:?not examined.?MUSCULOSKELETAL:?extremities unremarkable, no clubbing, cyanosis or edema.?PERIPHERAL PULSES:?normal.?NEUROLOGIC:?alert and oriented, cranial nerves 2-12 grossly intact, deep tendon reflexes 2+ symmetrical, motor strength normal upper and lower extremities, sensory exam intact.?PSYCH:?alert, oriented.? Assessment: * Assessment: 1.?Leukopenia, unspecified t ype - D72.819 (Primary)???Notes :Her white blood cell count has improved to 4700 with a normal differential. The white blood cell count fluctuates. There is no evolution into the maturation defect syndrome. She has had no serious infections. She will have a white cell count in 6 months.???2.?Overweight - E66.3???Notes :Her body mass index is 28. She has gained 3 pounds. We discussed diet and nutrition today.???3.?Palpitations - [...] not done * Follow Up:?6 Months (Reason: ov review labs) * Images: * Sign off status: Completed true * Provider:?Ronnie Gaona MD Date:?04/07 Generated for Kattyi brittany/Ayleen/eTransmitting on:?07/07/2024 04:37 PM EDT History and Physical Notes * [...]
== END 2024-07-07 15:26 | disposition home or self-care (01) ==
LOC: HO.MAMMO 15:25
PROVIDERS: PCP Internal Medicine; Visit Provider Internal Medicine Medical Oncology
DX: Z12.31 Encounter for screening mammogram for malignant neoplasm of breast (principal)
CPT/HCPCS: 77063; 77067

== ENCOUNTER → 2024-07-07 15:30 | Outpatient (BNV) | payer OTHER, SELFPAY | PROVIDERS: PCP Internal Medicine; Visit Provider Internal Medicine | DX: Z12.31 Encounter for screening mammogram for malignant neoplasm of breast (principal) | CPT/HCPCS: 77063; 77067 ==

== ENCOUNTER 2024-07-23 08:21 | Outpatient (AMB) | payer OTHER, SELFPAY ==
--- OUTSIDE RECORDS SUMMARY | 2024-05-05 11:45 | XMS_ITS ---
Author Organization Ronnie Gaona III, MD Address [address] [place] [address] Care Team Providers Care Clinical Director Name Role Phone Eugene Victoria MD Primary Care Provider Ronnie Garcia Unavailable [phone] Allergies Allergen (clinical drug ingredient) Drug/Non Drug [...] Provider Diagnosis Ronnie Gaona III, MD [address] [place] [address] [place] [address] 05/05/2024 Ronnie Gaona Leukopenia, unspecified type D72.819 [...] Provider Name:Ronnie Gaona, 11/04/2024 03:30:00 PM, [address] [place] [address] [facility] SINCLA[facility] [address] [place] [address], [phone], Progress Notes * COUTHA RAMOSOviB:[birth year] (59 yo F)Acc No.[id number]:05/05/2024 Progress Notes Patient: Vinicius BIRD Provider: Sarita Gaona MD :1965 A ge:59 Y S ex:Female Date:05/05/2024 [id number] Pcp:Eugene Victoria MD Subjective: * Chief [...] h ysterectomy 2014partial colonoscopy to 40 cm, [facility] [place]. Ronnie Rodriguez, negative 2018endometrial biopsy, [...] ggressive non-smoker S he was born and [place], [place]. She has been to Arnel for 22 years and they have 2 healthy children. 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 * Medications: T akingMelatonin Omeprazole 40 [...] 05/05/2024 Generated for Nyasia soto/Ayleen/Martaitting on: 0 07/23/2024 08:37 AM EDT History and Physical Notes * [...]
--- NOTE | 2024-07-23 08:24 | MHC.OFFVIS ---
Vital Signs 07/23/24 08:25 Height 5 ft 5 in Weight 169 lb 12.095 oz BMI 28.2 BP 120/68 Blood Pressure Location Lt brachial Position Sitting Pulse 95 Intake Visit Reasons: 2 year follow-up with ekg Intake Note: 2 year follow-up with ekg c/o palpitations often but there very fast not worried Allergies Penicillins (PENICILLINS) Allergy (Severe, Verified 03/11/24 14:25) ANAPHYLAXIS sulfamethoxazole (From Bactrim) Allergy (Intermediate, Verified 03/11/24 14:25) rash trimethoprim (From Bactrim) Allergy (Intermediate, Verified 03/11/24 14:25) rash Medication List - Last Reconciled 07/23/24 by Memo Monique MD atorvastatin 10 mg PO DAILY estradiol (Vagifem) 10 mcg vaginal 2XW omeprazole 40 mg PO DAILY 90 days trazodone 50 mg PO DAILY HPI Comments Details: Vinicius comes for follow-up. Overall she has been doing well. She continues to have symptoms of fluttering in his chest which she feels it but does not bother as she knows that these are benign arrhythmias. She has prior history of PACs. She has no exertional chest pain or shortness of breath. She does say that on stressful days she does have slightly increased symptoms of palpitations. Denies any heart failure symptoms. No lightheadedness, syncope. Noted to have elevated sugars as well as hemoglobin A1c of 6.1% with elevated triglycerides suggestive of metabolic syndrome. Her LDL is currently well optimized. She says she does not get much time to exercise. She is trying to watch her diet and improve her diet. [facility] Medical History COVID-19 vaccine administered History of palpitations Family history of adverse effect to anesthesia History of postoperative nausea and vomiting History of diverticulosis History of endometrial biopsy Diverticula of intestine Surgical History H/O colonoscopy H/O: History of cholecystectomy Hx of appendectomy H/O: hysterectomy Family History Mother Diverticulosis HTN (hypertension) Father HTN (hypertension) Brother HTN (hypertension) Social History Household Members: Spouse and Children Are you a primary palliative care nurse practitioner to a significant other at home: No Do you presently have visiting nurse or other home services: No Alcohol intake: current Alcohol intake frequency: holidays/special occasions only Patient Tobacco Use Status: Never used Tobacco Current occupational status: employed 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 Gender identity: Female Female Reproductive History Menstrual Age of Menarche: 16 Review of Systems Const Denies chills, Denies fatigue, Denies fever(s), Denies frequent falls, Denies weakness, Denies weight gain and Denies weight loss ENT Denies dizziness Card Denies chest pain, Denies leg edema, Denies lightheadedness, Denies palpitations, Denies dyspnea, Denies dyspnea on exertion, Denies orthopnea and Denies other (loss of consciousness) Resp Denies cough, Denies dyspnea and Denies dyspnea on exertion GI Denies hematochezia and Denies change in stool character Musc Denies abnormal gait, Denies muscle weakness, Denies numbness, Denies radiating pain into limb and Denies tingling Neuro Denies abnormal gait, Denies dizziness, Denies frequent falls, Denies numbness, Denies tingling and Denies weakness Endo Denies fatigue and Denies palpitations Physical Exam Vital Signs: Last Vital Signs Pulse 95 07/23/24 08:25 BP 120/68 07/23/24 08:25 BMI result Body Mass Index 28.2 Const General: cooperative, comfortable, no acute distress, well developed, alert, awake and well groomed Nutritional Appearance: average body habitus Orientation/consciousness: patient oriented x3 Limitations: no limitations HEENT Head: Yes normocephalic and Yes atraumatic Neck Neck: Yes trachea midline, Yes supple and Yes no JVD Chest Chest palpation & inspection: normal inspection of the chest Resp Effort & Inspection: normal respiratory effort Auscultation: clear to auscultation bilaterally Cardio Jugular venous distension: no JVD Palpation: normal PMI Rate: regular rate Rhythm: regular rhythm Heart sounds: S1 normal heart sound present, S2 normal heart sound present, no click, no gallops, no murmurs and no rubs Peripheral pulses: Peripheral pulses 2+ throughout GI Inspection: Yes normal to inspection Skin General skin exam: no rashes or lesions noted Neuro General: patient oriented x3 and no focal motor deficits Extrem General: Yes no clubbing, cyanosis or edema Psych Appearance: grossly normal Office Procedures EKG Details: EKG shows normal sinus rhythm with normal EKG 13346-Rqimugzkippknqogo, Complete Assessment & Plan Assessment & Plan (1) Mixed hyperlipidemia: Code(s): E78.2 - Mixed hyperlipidemia Category: Medical Plan: Patient with mixed hyperlipidemia most suggestive of metabolic syndrome. Patient is noted to have elevated sugar with elevated hemoglobin A1c. This is highly suggestive of metabolic syndrome as well. Will refer her to nutrition/dietitian for improving her diet controlled. Strongly encouraged to increase activity level to also help with the management of her metabolic syndrome. If after 6 months of intense lifestyle about modification she persists with elevated sugars would consider metformin/Jardiance therapy. This will be pursued through your office. Importance of aggressive control sugars was discussed. If despite this her triglycerides elevated will consider therapy for it with the the fenofibrate or fish oil. Her LDL is currently well optimized on low-dose statin therapy and her coronary calcium score is 0. Advised to continue statin therapy at current dose. (2) Pericardial cyst: Code(s): Q24.8 - Other specified congenital malformations of heart Category: Medical Plan: Pericardial cyst incidentally noted on coronary calcium score CTA. She has had no symptoms related to it. Echo was unable to detect the pericardial cyst. Will obtain a CT scan with contrast to evaluate for further anatomy of pericardial as this and differentially diagnose if there is any alternative etiology for the same. She is willing to pursue that. (3) PAC (premature atrial contraction): Code(s): I49.1 - Atrial premature depolarization Category: Medical Plan: PACs causing her palpitation although she is not bothered by it. Symptoms are worse on stressful days. Discussed about stress mitigation strategies. No pharmacotherapy is recommended at this point time. Will follow up in the clinic in 2 years time, sooner p.r.n.. Thank you for allowing me to partake in her care Orders: Orders CT chest wo/w IV con Today Q24.8 - Other specified congenital malformations of heart Referrals Nutrition/Dietitian Referral E78.2 - Mixed hyperlipidemia Coding Level of Care Code Est Pt Level 4 (69072) Complex EM visit Add On G2211 Diagnoses Mixed hyperlipidemia E78.2 Pericardial cyst Q24.8 PAC (premature atrial contraction) I49.1 CPT Codes EKG - CPT: 44946-[id number], Complete ([id number])
[2024-07-23 08:25] VITALS: BP 120/68; PULSE 95; BMI 28.2
== END 2024-07-23 08:59 | disposition home or self-care (01) ==
LOC: HO.HCS 08:22
PROVIDERS: PCP Internal Medicine Medical Oncology; Visit Provider Internal Medicine Cardiovascular Disease
DX: E78.2 Mixed hyperlipidemia (principal); Q24.8 Other specified congenital malformations of heart; I49.1 Atrial premature depolarization
CPT/HCPCS: 93010; 99214

== ENCOUNTER → 2024-07-23 08:21 | Outpatient (BNVA) | payer OTHER, SELFPAY | PROVIDERS: PCP Internal Medicine Medical Oncology; Visit Provider Internal Medicine Cardiovascular Disease | DX: I49.1 Atrial premature depolarization (principal) | CPT/HCPCS: 93005 ==

== ENCOUNTER 2024-08-21 12:55 | Outpatient (REF) | payer OTHER, SELFPAY ==
--- OUTSIDE RECORDS SUMMARY | 2024-05-05 11:45 | XMS_ITS ---
Author Organization Ronnie Gaona III, MD Address [address] [place] [address] Care Team Providers Care Tube Drawing Supervisor Name Role Phone Eugene Victoria MD Primary Care Provider Ronnie Garcia Unavailable [phone] Allergies Allergen (clinical drug ingredient) Drug/Non Drug [...] Date Provider Diagnosis Ronnie Gaona III, MD [address] [place] [address] [place] [address] 05/05/2024 Ronnie Gaona Leukopenia, unspecified type D72.819 [...] labs Provider Name:Ronnie Gaona, 11/04/2024 03:30:00 PM, [address] [place] [address] [address] [facility] [address] [place] [address], [phone], Progress Notes * COUTHA RAMOSOviB:[birth year] (59 yo F)Acc No.[id number]:05/05/2024 Progress Notes Patient: Vinicius BIRD Provider: Sarita Gaona MD :1965 A ge:59 Y S ex:Female Date:05/05/2024 [id number] Pcp:Eugene Victoria MD Subjective: * [...] h ysterectomy 2014partial colonoscopy to 40 cm, [facility] [place], Dr. Ronnie Rodriguez, negative [...] ggressive non-smoker S he was born and [place], [place]. She has been to Arnel for 22 years and they have 2 healthy children. 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 * Medications: T akingMelatonin Omeprazole 40 [...] 05/05/2024 Generated for Nyasia soto/Ayleen/Martaitting on: 0 08/21/2024 01:20 PM EDT History and Physical Notes * [...]
[2024-08-21 14:54] LABS: Anion Gap 12 (12-20); Blood Urea Nitrogen 12 mg/dL (9-16); Calcium 8.6 mg/dL (8.4-10.2); Carbon Dioxide 25 mmol/L (22-29); Chloride 108 mmol/L (96-108); Estimated Glomerular Filt Rate 57; Potassium 4.1 mmol/L (3.3-5.1); Sodium 141 mmol/L (135-145)
== END 2024-08-21 12:56 | disposition home or self-care (01) ==
LOC: HO.LAB 12:55
PROVIDERS: PCP Internal Medicine; Visit Provider Internal Medicine Cardiovascular Disease
DX: I49.1 Atrial premature depolarization (principal); Q24.8 Other specified congenital malformations of heart
CPT/HCPCS: 36415; 80048

== ENCOUNTER 2024-08-25 08:40 | Outpatient (REF) | payer OTHER, SELFPAY ==
--- OUTSIDE RECORDS SUMMARY | 2024-05-05 11:45 | XMS_ITS ---
Author Organization Ronnie Gaona III, MD Address [address] [place] [address] Care Team Providers Care Instructional Writer Name Role Phone Eugene Victoria MD Primary Care Provider Ronnie Garcia Unavailable [phone] Allergies Allergen (clinical drug ingredient) Drug/Non Drug [...] Date Provider Diagnosis Ronnie Gaona III, MD [address] [place] [address] [place] [address] 05/05/2024 Ronnie Gaona Leukopenia, unspecified type D72.819 [...] labs Provider Name:Ronnie Gaona, 11/04/2024 03:30:00 PM, [address] [place] [address] [address] SINCLAIR [address] [place] [address], [phone], Progress Notes * COUTHA RAMOSOviB:[birth year] (59 yo F)Acc No.[id number]:05/05/2024 Progress Notes Patient: Vinicius BIRD Provider: Sarita Gaona MD :1965 A ge:59 Y S ex:Female Date:05/05/2024 [facility] Pcp:Eugene Victoria MD Subjective: * [...] h ysterectomy 2014partial colonoscopy to 40 cm, [facility], Dr. Ronnie Rodriguez, negative 2018endometrial biopsy, Dr. [...] ggressive non-smoker S he was born and [place], [place]. She has been to Arnel for 22 years and they have 2 healthy children. 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 * Medications: T akingMelatonin Omeprazole [...] 05/05/2024 Generated for Nyasia soto/Ayleen/Martaitting on: 0 08/25/2024 08:47 AM EDT History and Physical Notes * [...]
--- NOTE | ~2024-08-25 | CT_ITS ---
CLINICAL HISTORY: Q24.8 - Other specified congenital malformations of heart CT chest with and without contrast Comparison: CT/REG/SR - CT ABDOMEN PELVIS WITHOUT IV CONTRAST - 04/24/22 07:53 EDT Findings: The heart size is normal. The visualized thyroid is within normal limits. 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 No consolidation or effusion. The upper abdomen is unremarkable. No acute fractures. IMPRESSION: 1. Stable right pericardiac cyst. 2. No acute process. This document has been electronically signed by: Lor Cates MD on 08/25/2024 15:24:59
[2024-08-25] MEDS: iohexoL 350 MG/ML 100 ML INFUS..BTL 65 ML IV (09:35)
== END 2024-08-25 08:41 | disposition home or self-care (01) ==
LOC: HO.CT 08:40
PROVIDERS: PCP Internal Medicine Medical Oncology; Visit Provider Internal Medicine Cardiovascular Disease
DX: Q24.8 Other specified congenital malformations of heart (principal)
CPT/HCPCS: 71270; Q9967

== ENCOUNTER → 2024-08-25 08:45 | Outpatient (BNV) | payer OTHER, SELFPAY | PROVIDERS: PCP Internal Medicine Medical Oncology; Visit Provider Radiology Diagnostic Radiology | DX: Q24.8 Other specified congenital malformations of heart (principal) | CPT/HCPCS: 71270 ==

== ENCOUNTER 2024-09-15 13:17 | Outpatient (AMB) | payer OTHER, SELFPAY ==
--- OUTSIDE RECORDS SUMMARY | 2024-05-05 11:45 | XMS_ITS ---
Author Organization Ronnie Gaona III, MD Address [address] [facility] [place] [address] Care Team Providers Care Drum Sprayer Name Role Phone Eugene Victoria MD Primary Care Provider Ronnie Garcia Unavailable [phone] Allergies Allergen (clinical drug ingredient) Drug/Non Drug [...] Date Provider Diagnosis Ronnie Gaona III, MD [address] [place] [address] [place] [address] 05/05/2024 Ronnie Gaona Leukopenia, unspecified type D72.819 [...] Months, Reason: ov review labs Provider Name:Ronnie Gaona, 11/04/2024 03:30:00 PM, [address] [place] [address] [address] S[facility]CLA[facility] [address] [place] [address], [phone], Progress Notes * COUTHA RAMOSOviB:[birth year] (59 yo F)Acc No.[id number]:05/05/2024 Progress Notes Patient: Vinicius BIRD Provider: Sarita Gaona MD :1965 A ge:59 Y S ex:Female Date:05/05/2024 [facility] Pcp:Eugene Victoria MD Subjective: * Chief Complaints: [...] h ysterectomy 2014partial colonoscopy to 40 cm, [facility] [place], Dr. Ronnie Rodriguez, negative 2018endometrial biopsy, Dr. Whipple, negative findings 2014laparoscopic cholecystectomy, Dr. Busby, acalculous cholecystitis 2005dental extractions, for multiple loose, no bleeding 1989fractured left leg 01/2019Upper endoscopy 05/2022 * Hospitalization/Major Diagno stic Procedure: D cyn Past Hospitalization * Family History: F ather: [...] ggressive non-smoker S he was born and [place], [place]. She has been to Arnel for 22 years and they have 2 healthy children. 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 * Medications: T akingMelatonin Omeprazole 40 MG [...] 0 05/05/2024 Generated for Nyasia soto/Ayleen/Martaitting on: 0 09/15/2024 01:27 PM EDT History and Physical Notes * [...]
--- NOTE | 2024-09-15 13:33 | A.OFFVIS_ITS ---
VS Expanded 09/15/24 13:34 09/15/24 13:48 Height 5 ft 5 in 5 ft 5 in Weight 173 lb 11.588 oz 174 lb BMI 28.9 29.0 Intake Visit Reasons: Mixed hyperlipidemia Allergies Penicillins (PENICILLINS) Allergy (Severe, Verified 03/11/24 14:25) ANAPHYLAXIS sulfamethoxazole (From Bactrim) Allergy (Intermediate, Verified 03/11/24 14:25) rash trimethoprim (From Bactrim) Allergy (Intermediate, Verified 03/11/24 14:25) rash Nutrition Presentation Details: Pt presents for MNT for Mixed hyperlipidemia food frequency fruits:1-2/d fish:0-1/wk dairy>2 serving/d ve/d beverages: water/low sugar beverages Physical activity ADL + active at work etoh/smoking--- BS Monitoring Most Recent Diabetes Results: Cholesterol, (<200) 193 mg/dL 03/18/24 HDL Cholesterol, (>40) 51 mg/dL 03/18/24 Triglycerides, (<150) 292 mg/dL H 03/18/24 Creatinine, (0.5-1.4) 1.00 mg/dL 08/21/24 BUN, (9-16) 12 mg/dL 08/21/24 Sodium, (135-145) 141 mmol/L 08/21/24 Potassium, (3.3-5.1) 4.1 mmol/L 08/21/24 Chloride, (96-108) 108 mmol/L 08/21/24 Carbon Dioxide, (22-29) 25 mmol/L 08/21/24 Calcium, (8.4-10.2) 8.6 mg/dL Δ 08/21/24 AST, (5-31) 33 U/L H 03/18/24 ALT, (0-31) 20 U/L 03/18/24 Total Protein, (6.5-8.0) 7.8 g/dL 03/18/24 Albumin, (3.5-5.0) 4.5 g/dL 03/18/24 QME-Egekvtm-Jw.Jeor Equation Height: 5 ft 5 in Weight: 174 lb Resting Metabolic Rate: 1378.90 Calculated Activity Level: Mild Activity Calories Needed to Maintain Weight: 1895.99 Diagnosis Nutrition problem #1: altered nutrition labs As related to (etiology) #1: diagnosis As evidenced by (sign/symptom) #1: abnormal lab values (Tg>150 (04/01)) PFSH Medical History COVID-19 vaccine administered History of palpitations Family history of adverse effect to anesthesia History of postoperative nausea and vomiting History of diverticulosis History of endometrial biopsy Diverticula of intestine Surgical History H/O colonoscopy H/O: History of cholecystectomy Hx of appendectomy H/O: hysterectomy Family History Mother Diverticulosis HTN (hypertension) Father HTN (hypertension) Brother HTN (hypertension) Social History Household Members: Spouse and Children Are you a primary residential care officer to a significant other at home: No Do you presently have visiting nurse or other home services: No Alcohol intake: current Alcohol intake frequency: holidays/special occasions only Patient Tobacco Use Status: Never used Tobacco Current occupational status: employed 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 Gender identity: Female Female Reproductive History Menstrual Age of Menarche: 16 Assessment & Plan Assessment & Plan (1) Mixed hyperlipidemia: Code(s): E78.2 - Mixed hyperlipidemia Category: Medical Plan: Wt: 79 Kg ( 09/29 ) Est kcal needs as per MSJ: 1800 (40% carb, 30% protein/fat) Est fluid needs as per 25-30 ml/d: 2400 Est prot per day as per 1 g/kg bw: 80 Recommend fiber intake : 8-10 g per day and gradually increase to 25-28 g per day for women and 35-38 g for men or as tolerated Recommend sodium intake per day : less than 2300 mg Educated patient on: ( R = reviewed V = verbalizes understanding N/R = needs review N/A = not applicable * Food sources of carbohydrate, adequate serving sizes and its role in various health conditions: R * Differences between complex carbohydrates a simple carbohydrates, role of fiber in diet: R * Lean protein sources of foods: R * Differences between types of fats and role in diet (mono on saturated fat fatty acids, saturated fatty acids, trans fats): R V N/R * Food sources of sodium in salt and healthy modifications for heart health in kidney health: R V R/V * Vitamins and minerals: R * Healthy plate method concept: R V N/R * Physical activity: Benefits a precaution: R Patient Instructions: Choose fiber rich foods and reduce on sugars and total carb to less than 60 g per meal (3 meals/d) and 0-20 g as snack Include lean protein food in your meal Include omega 3 fatty acid sources of foods (fish twice a week nuts/seeds) Coding Level of Care Code Nutr Indiv Intake (98441) Diagnoses Mixed hyperlipidemia E78.2 Time Spent (min) 30
[2024-09-15 13:34] VITALS: BMI 28.9
[2024-09-16 11:44] VITALS: BMI 29.0
== END 2024-09-15 14:25 | disposition home or self-care (01) ==
LOC: HO.ENCR 13:18
PROVIDERS: PCP Internal Medicine Medical Oncology; Visit Provider Dietitian, Registered
DX: E78.2 Mixed hyperlipidemia (principal)

== ENCOUNTER → 2024-09-15 13:17 | Outpatient (BNVA) | payer OTHER, SELFPAY | PROVIDERS: PCP Internal Medicine Medical Oncology; Visit Provider Dietitian, Registered | DX: Z71.3 Dietary counseling and surveillance (principal); E78.2 Mixed hyperlipidemia | CPT/HCPCS: 97802 ==

== ENCOUNTER 2024-09-18 10:50 | Outpatient (AMB) | payer OTHER, SELFPAY ==
--- OUTSIDE RECORDS SUMMARY | 2024-05-05 11:45 | XMS_ITS ---
Author Organization Ronnie Gaona III, MD Address [address] [facility] [place] [address] Care Team Providers Care Family Worker Name Role Phone Eugene Victoria MD Primary Care Provider Ronnie Garcia Unavailable [phone] Allergies Allergen (clinical drug ingredient) Drug/Non Drug [...] Date Provider Diagnosis Ronnie Gaona III, MD [address] [place] [address] [place] [address] 05/05/2024 Ronnie Gaona Leukopenia, unspecified type D72.819 [...] labs Provider Name:Ronnie Gaona, 11/04/2024 03:30:00 PM, [address] [place] [address] [address] S[facility] [address] [place] [address], [phone], Progress Notes * COUTHA RAMOSOviB:[birth year] (59 yo F)Acc No.[id number]:05/05/2024 Progress Notes Patient: Vinicius BIRD Provider: Sarita Gaona MD :1965 A ge:59 Y S ex:Female Date:05/05/2024 [facility] Pcp:Eugene Victoria MD Subjective: * Chief Complaints: [...] h ysterectomy 2014partial colonoscopy to 40 cm, [facility] [place], Dr. Ronnie Rodriguez, negative 2018endometrial biopsy, [...] ggressive non-smoker S he was born and [place], [place]. She has been to Arnel for 22 years and they have 2 healthy children. 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 * Medications: T akingMelatonin Omeprazole 40 [...] 05/05/2024 Generated for Nyasia soto/Ayleen/Martaitting on: 0 09/18/2024 11:59 AM EDT History and Physical Notes * HPI [...]
--- NOTE | 2024-09-18 10:22 | MHC.PC.OV ---
Vital Signs 09/18/24 10:23 Height 5 ft 5 in Weight 171 lb BMI 28.5 BP 122/80 Blood Pressure Location Lt brachial Position Sitting Pulse 86 Pulse Source Pulse Oximeter Temp 97.8 F Temp Source Temporal Artery Scan Pulse Oximetry (%) 99 Oxygen Delivery Method Room Air Intake Visit Reasons: Annual Roadmaster Required: No Accompanied by: Self / Same As Patient Allergies Penicillins (PENICILLINS) Allergy (Severe, Verified 09/18/24 11:04) ANAPHYLAXIS sulfamethoxazole (From Bactrim) Allergy (Intermediate, Verified 09/18/24 11:04) rash trimethoprim (From Bactrim) Allergy (Intermediate, Verified 09/18/24 11:04) rash Tobacco use date assessed: 09/18/24 Dental Screening Dental Screen Date: 09/18/24 Did you have a dental visit in the last 12 months?: Yes Did you have a dental problem in the last 6 months where you did not have access to dental care?: No HPI HPI Comments History of Present Illness Details The patient is a 59 year old female with a past medical history of prediabets, hyperlipidemia, GERD, diverticulosis presenting to [facility] care. Last seen by Dr Victoria in Mar. Prediabetes.A1C 6.1%. CV: Follows with Dr Monique. Heme/onc: Dr Gaona for low white blood cell count. Colonoscopy 2020-Dr Rodriguez 10 year, upper endoscopy in 2022 Follows with conductor [facility] -[facility] 2024 Mammo July ROS CONSTITUTIONAL: Denies weight loss, fever and chills. HEENT: Denies changes in vision and hearing. RESPIRATORY: Denies SOB and cough. CV: Denies palpitations and CP GI: Denies abdominal pain, nausea, vomiting and diarrhea. : Denies dysuria and urinary frequency. MSK: Denies new myalgia and joint pain. SKIN: Denies rash and pruritus. NEUROLOGICAL: Denies headache PSYCHIATRIC: Denies recent changes in mood. PHYSICAL EXAM: GENERAL: Alert and oriented x 3. NAD EYES: EOMI. Anicteric. HENT: Moist mucous membranes. No scleral icterus. No cervical lymphadenopathy. LUNGS: Clear to auscultation bilaterally. CARDIOVASCULAR: Regular rate and rhythm. No murmur. No JVD. ABDOMEN: Soft, non-tender +bs EXTREMITIES: No edema. Non-tender. SKIN: No rashes or lesions. Warm. NEUROLOGIC: No focal neurological deficits. CN II-XII grossly intact PSYCHIATRIC: Cooperative. Appropriate mood and affect [facility] Medical History COVID-19 vaccine administered History of palpitations Family history of adverse effect to anesthesia History of postoperative nausea and vomiting History of diverticulosis History of endometrial biopsy Diverticula of intestine Surgical History H/O colonoscopy H/O: History of cholecystectomy Hx of appendectomy H/O: hysterectomy Family History Mother Diverticulosis HTN (hypertension) Father HTN (hypertension) Brother HTN (hypertension) Social History Household Members: Spouse and Children Housing: House Are you a primary vocational childcare teacher to a significant other at home: No Do you presently have visiting nurse or other home services: No Alcohol intake: current Alcohol intake frequency: holidays/special occasions only Patient Tobacco Use Status: Never used Tobacco e-Cigarette/Vaping Use: Never Used service: No Current occupational status: employed 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 1. Little interest or pleasure in doing things: not at all 2. Feeling down, depressed, or hopeless: not at all 3. Trouble falling or staying asleep, or sleeping too much: not at all 4. Feeling tired or having little energy: not at all 5. Poor appetite or overeating: not at all 6. Feeling bad about yourself - or that you are a failure or have let yourself or your family down: not at all 7. Trouble concentrating on things, such as reading the newspaper or watching television: not at all 8. Moving or speaking so slowly that other people could have noticed. Or the opposite - being so fidgety or restless that you have been moving around a lot more than usual: not at all 9. Thoughts that you would be better off or of hurting yourself in some way: not at all Total score: 0 Depression Screening Interpretation: Negative Depression Screening Done: Yes 12923 - PHQ-9 Billing: Yes Source: Developed by Drs. Ronnie Aguila, Carlota Linton, Kd Bray and colleagues, with an educational rafael from [employer]. Thrive Questionnaire Date Thrive assessed: 09/18/24 I am a: Patient Within the past 12 months, did the food you bought not last and you didn't have the money to get more?: Never true Within the past 12 months, did you worry whether your food would run out before you got money to buy more?: Never true Do you have trouble paying for medicines?: No Do you have trouble getting transportation to medical appointments?: No Do you have trouble paying your heating and electricity bill?: No Do you have trouble taking care of your child, family member or friend?: No Do you have trouble with day-to-day activities such as bathing, preparing meals, shopping, managing finances, etc.?: No Are you currently unemployed and looking for a job?: No Are you interested in more education?: No THRIVE Score: 0 AUDIT C Alcohol Use Questionnaire (AUDIT-C) 1. How often do you have a drink containing alcohol?: Monthly or less 2. How many drinks containing alcohol do you have on a typical day when you are drinking?: 1 or 2 3. How often do you have six or more drinks on one occasion?: Less than monthly Total Score: 2 GISELA-7 AMB Questionnaire GISELA-7 Date GISELA - 7 assessed: 09/18/24 Feeling nervous, anxious, or on edge: 0 = Not at all Not being able to stop or control worryin = Not at all Worrying too much about different things: 0 = Not at all Trouble relaxin = Not at all Being so restless that it is hard to sit still: 0 = Not at all Becoming easily annoyed or irritable: 0 = Not at all Feeling afraid as if something awful might happen: 0 = Not at all Total GISELA-7 score (0-4 normal; 5-9 mild; 10-14 moderate; 15-21 severe): 0 Source: Developed by Drs. Ronnie Aguila, Carlota Linton, Kd Bray and colleagues, with an educational rafael from [employer]. Physical exam (Primary Care) Vital Signs: Last Vital Signs Temp 97.8 F 09/18/24 10:23 Pulse 86 09/18/24 10:23 BP 122/80 09/18/24 10:23 Pulse Ox 99 09/18/24 10:23 Oxygen Delivery Method Room Air 09/18/24 10:23 BMI result Body Mass Index 28.5 Tobacco/Smoking Status: Tobacco use Status Tobacco use date assessed 09/18/24 09/18/24 10:24 Patient Tobacco Use Status Never used Tobacco 09/18/24 10:24 e-Cigarette/Vaping Use Never Used 09/18/24 10:24 PHQ-9: PHQ-9 Score PHQ-9: Total score 0 09/22/24 14:06 Depression Screening Interpretation: Negative Thrive Assessment: Date of Thrive Assessment Date Thrive assessed 09/18/24 09/18/24 10:24 Coding Level of Care Code New Pt Level 4 (82752) Diagnoses Prediabetes R73.03 Mixed hyperlipidemia E78.2 Additional Codes PHQ-9 - 59855 - PHQ-9 Billing: Yes ([id number]) Assessment & Plan Assessment & Plan (1) Prediabetes: Code(s): R73.03 - Prediabetes Category: Medical (2) Mixed hyperlipidemia: Code(s): E78.2 - Mixed hyperlipidemia Category: Medical Plan 59 yo to establish care Past medical, surgical, social reviewed Prediabetes -labs ordered HLD-on atorvastatin Orders: Orders Lipid Panel 09/18/24 E78.5 - Hyperlipidemia, unspecified, R73.03 - Prediabetes, R79.89 - Other specified abnormal findings of blood chemistry, Z13.228 - Encounter for screening for other metabolic disorders TSH reflex Free T4 09/18/24 E78.5 - Hyperlipidemia, unspecified, R73.03 - Prediabetes, R79.89 - Other specified abnormal findings of blood chemistry, Z13.228 - Encounter for screening for other metabolic disorders Complete Blood Count Auto Diff 09/18/24 E78.5 - Hyperlipidemia, unspecified, R73.03 - Prediabetes, R79.89 - Other specified abnormal findings of blood chemistry, Z13.228 - Encounter for screening for other metabolic disorders Comprehensive Met. Panel 09/18/24 E78.5 - Hyperlipidemia, unspecified, R73.03 - Prediabetes, R79.89 - Other specified abnormal findings of blood chemistry, Z13.228 - Encounter for screening for other metabolic disorders Hemoglobin A1c 09/18/24 E78.5 - Hyperlipidemia, unspecified, R73.03 - Prediabetes, R79.89 - Other specified abnormal findings of blood chemistry, Z13.228 - Encounter for screening for other metabolic disorders Hemoglobin A1c 6 Months R73.03 - Prediabetes Medications: New trazodone 50 mg PO DAILY 90 tabs 3RF
[2024-09-18 10:23] VITALS: BP 122/80; PULSE 86; TEMP 36.6; O2SAT 99; BMI 28.5
== END 2024-09-18 11:35 | disposition home or self-care (01) ==
LOC: HO.HMCHD 10:51
PROVIDERS: PCP Internal Medicine; Visit Provider Internal Medicine
DX: R73.03 Prediabetes (principal); E78.2 Mixed hyperlipidemia

== ENCOUNTER → 2024-09-18 10:50 | Outpatient (BNVA) | payer OTHER, SELFPAY | PROVIDERS: PCP Internal Medicine; Visit Provider Internal Medicine | DX: Z76.89 Persons encountering health services in other specified circumstances (principal); R73.03 Prediabetes; E78.2 Mixed hyperlipidemia; Z79.899 Other long term (current) drug therapy; Z13.31 Encounter for screening for depression; Z13.39 Encounter for screening examination for other mental health and behavioral disorders | CPT/HCPCS: 96127 ==

== ENCOUNTER 2024-11-11 12:20 | Outpatient (AMB) | payer OTHER, SELFPAY ==
--- NOTE | 2024-11-11 12:30 | A.OFFVIS_ITS ---
VS Expanded 11/11/24 12:32 Height 5 ft 5 in Weight 163 lb 5.8 oz BMI 27.2 Intake Visit Reasons: mixed hyperlipidemia Allergies Penicillins (PENICILLINS) Allergy (Severe, Verified 09/18/24 11:04) ANAPHYLAXIS sulfamethoxazole (From Bactrim) Allergy (Intermediate, Verified 09/18/24 11:04) rash trimethoprim (From Bactrim) Allergy (Intermediate, Verified 09/18/24 11:04) rash Nutrition Presentation Details: Pt presents for MNT f/u for mixed hyperlipidemia Pt reports doing well, working on diet modifications, feeling comfortable. BS Monitoring Most Recent Diabetes Results: Creatinine, (0.5-1.4) 1.00 mg/dL 08/21/24 BUN, (9-16) 12 mg/dL 08/21/24 Sodium, (135-145) 141 mmol/L 08/21/24 Potassium, (3.3-5.1) 4.1 mmol/L 08/21/24 Chloride, (96-108) 108 mmol/L 08/21/24 Carbon Dioxide, (22-29) 25 mmol/L 08/21/24 Calcium, (8.4-10.2) 8.6 mg/dL Δ 08/21/24 [facility] Medical History COVID-19 vaccine administered History of palpitations Family history of adverse effect to anesthesia History of postoperative nausea and vomiting History of diverticulosis History of endometrial biopsy Diverticula of intestine Surgical History H/O colonoscopy H/O: History of cholecystectomy Hx of appendectomy H/O: hysterectomy Family History Mother Diverticulosis HTN (hypertension) Father HTN (hypertension) Brother HTN (hypertension) Social History Household Members: Spouse and Children Housing: House Are you a primary manager medicare marketing to a significant other at home: No Do you presently have visiting nurse or other home services: No Alcohol intake: current Alcohol intake frequency: holidays/special occasions only Patient Tobacco Use Status: Never used Tobacco e-Cigarette/Vaping Use: Never Used service: No Current occupational status: employed 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 Gender identity: Female Cognitive needs: No Hearing needs: No Vision needs: Yes (rx glaasses) Female Reproductive History Menstrual Age of Menarche: 16 Assessment & Plan Assessment & Plan (1) Mixed hyperlipidemia: Code(s): E78.2 - Mixed hyperlipidemia Category: Medical Plan: Wt: 79 Kg ( 09/29 ), 74kg(11/29) Est kcal needs as per MSJ: 1800 (40% carb, 30% protein/fat) Est fluid needs as per 25-30 ml/d: 2200 Est prot per day as per 1 g/kg bw: 70-80 Recommend fiber intake : 8-10 g per day and gradually increase to 25-28 g per day for women and 35-38 g for men or as tolerated Recommend sodium intake per day : less than 2300 mg Educated patient on: ( R = reviewed V = verbalizes understanding N/R = needs review N/A = not applicable * Food sources of carbohydrate, adequate serving sizes and its role in various health conditions: R * Differences between complex carbohydrates a simple carbohydrates, role of fiber in diet: R * Lean protein sources of foods: R * Differences between types of fats and role in diet (mono on saturated fat fatty acids, saturated fatty acids, trans fats): R V N/R * Food sources of sodium in salt and healthy modifications for heart health in kidney health: R V R/V * Vitamins and minerals: R * Healthy plate method concept: R * Physical activity: Benefits a precaution: R Patient Instructions: Continue as established following healthy plate method less than 60 g carb per meal Keep hydrated by having water with meals/snacks Coding Level of Care Code Nutr Indiv Subseq (84437) Diagnoses Mixed hyperlipidemia E78.2 Time Spent (min) 30
[2024-11-11 12:32] VITALS: BMI 27.2
== END 2024-11-11 13:00 | disposition home or self-care (01) ==
LOC: HO.ENCR 12:20
PROVIDERS: PCP Internal Medicine Medical Oncology; Visit Provider Dietitian, Registered
DX: E78.2 Mixed hyperlipidemia (principal)

== ENCOUNTER → 2024-11-11 12:20 | Outpatient (BNVA) | payer OTHER, SELFPAY | PROVIDERS: PCP Internal Medicine Medical Oncology; Visit Provider Dietitian, Registered | DX: E78.2 Mixed hyperlipidemia (principal); Z71.3 Dietary counseling and surveillance | CPT/HCPCS: 97803 ==

== ENCOUNTER 2024-11-18 11:12 | Outpatient (REF) | payer OTHER, SELFPAY ==
--- OUTSIDE RECORDS SUMMARY | 2023-08-14 11:30 | XMS_ITS ---
Author Organization Ronnie Gaona III, MD Address [address] [place] [address] Care Team Providers Care Bottle Labeler Name Role Phone Eugene Victoria MD Primary Care Provider Dr. Ronnie Garcia III Unavailable Allergies Allergen (clinical drug ingredient) Drug/Non Drug [...] Date Provider Diagnosis Ronnie Gaona III, MD [address] [place] [address] [place] [address] 08/14/2023 Ronnie Gaona Leukopenia, unspecified type D72.819 [...] OV review labs Provider Name:Ronnie Gaona , 11/18/2024 03:30:00 PM, [address] [place] [address] DR [facility] [place], [address], Progress Notes * Ovi CHAPARROB:[birth year] (58 yo F)Acc No.[id number]:08/14/2023 Progress Notes Patient: Vinicius Rangel Provider: Sarita Gaona MD :1965 A ge:58 Y S ex:Female Date:08/14/2023 Address:[address] [place] [address] [place], [place]-[id number] Pcp:Eugene Victoria MD Subjective: * Chief Complaints: [...] h ysterectomy 2015partial colonoscopy to 40 cm, [facility], Dr. Ronnie Rodriguez, negative 2018endometrial biopsy, Dr. Whipple, negative findings 2013laparoscopic cholecystectomy, Dr. Busby, acalculous cholecystitis 2005dental extractions, for multiple loose, no bleeding 1988fractured [...] ggressive non-smoker S he was born and [place], [place]. She has been to Arnel for 22 years and they have 2 healthy children. 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 * Medications: T akingOmeprazole 40 MG [...] MD Date: 0 08/14/2023 Generated for Nyasia soto/Ayleen/eTransmitting on: 01:31 PM EDT History and Physical Notes * HPI (History [...]
--- OUTSIDE RECORDS SUMMARY | 2023-11-05 11:30 | XMS_ITS ---
Author Organization Ronnie Gaona III, MD Address [address] [place] [address] Care Team Providers Care Director Digital Sales Name Role Phone Eugene Victoria MD Primary [...] Date Provider Diagnosis Ronnie Gaona III, MD [address] [place] [address] [place] [address] 11/05/2023 Ronnie Gaona Leukopenia, unspecified type D72.819 [...] Months, Reason: OV Provider Name:Ronnie Gaona , 11/18/2024 03:30:00 PM, [address] [place] [address] DR, [address], [place], [address], Progress Notes * Olaf CHAPARROShawnB:[birth year] (58 yo F)Acc No.[id number]:11/05/2023 Patient: Vinicius BIRD Provider: Sarita Gaona MD :1965 A ge:58 Y S ex:Female Date:11/05/2023 Address:[address] [place], [place] [id number] Pcp:Eugene Victoria MD Subjective: * Chief Complaints: [...] ocation of provider rendering services: { ...} [address] [facility] [address] L ocation of patient: zenaida cortes listed [...] h ysterectomy 2015partial colonoscopy to 40 cm, [facility], Dr. Ronnie Rodriguez, negative 2018endometrial biopsy, Dr. [...] T obacco Use: T obacco Use/Smoking P atient is a n onsmoker A dditional Findings: Tobacco Non-User A ggressive non-smoker S he was born and [place], [place]. She has been to Arnel for 22 years and they have 2 healthy children. 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 * Medications: T akingMelatonin Omeprazole 40 MG [...] MD Date: 0 11/05/2023 Generated for Nyasia soto/Ayleen/Marvinsmitting on: 01:32 PM EDT History and Physical Notes * HPI (History of Present Illness) Category Sub-Category Detail Notes Telehealth Location of [facility] rendering services:: {...} [address] [facility] [address] Location of patient:: address listed in demographics [...]
--- OUTSIDE RECORDS SUMMARY | 2024-05-05 11:45 | XMS_ITS ---
Author Organization Ronnie Gaona III, MD Address [address] [address] Care Team Providers Care Antiquer Name Role Phone Eugene Victoria MD Primary [...] Provider Diagnosis Ronnie Gaona III, MD [address] [place] [address] [place] [address] 05/05/2024 Ronnie Gaona Leukopenia, unspecified type D72.819 [...] ov review labs Provider Name:Ronnie Gaona , 11/18/2024 03:30:00 PM, [address] [place] [address], [id number], Progress Notes * KATELIN Ovi RAMOSB:[birth year] (59 yo F)Acc No.[id number]:05/05/2024 Progress Notes Patient: Vinicius BIRD Provider: Sarita Gaona MD :1965 A ge:59 Y S ex:Female Date:05/05/2024 Address:[address] [place], [place] [id number] Pcp:Eugene Victoria MD Subjective: * Chief Complaints: [...] h ysterectomy 2014partial colonoscopy to 40 cm, [facility] [place], Dr. Ronnie Rodriguez, negative 2018endometrial biopsy, Dr. [...] ggressive non-smoker S he was born and [place], [place]. She has been to Arnel for 22 years and they have 2 healthy children. 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 * Medications: T akingMelatonin Omeprazole 40 MG [...] MD Date: 0 05/05/2024 Generated for Nyasia soto/Ayleen/Bryan on: 01:31 PM EDT History and Physical [...]
--- OUTSIDE RECORDS SUMMARY | 2024-11-04 13:00 | XMS_ITS ---
Author Organization Ronnie Gaona III, MD Address [address] [place] [address] Care Team Providers Care Oysterman Name Role Phone Eugene Victoria MD Primary [...] Date Provider Diagnosis Ronnie Gaona III, MD [address] [place] [address] [place] [address] 11/04/2024 Ronnie Gaona Leukopenia, unspecified type D72.819 [...] Next Appt Details Provider Name:Ronnie Gaona , 11/18/2024 03:30:00 PM, [address] [place] [address] DRREGLA, TRINI SOSA, [phone], Progress Notes * Ovi CHAPARROB:[birth year] (59 yo F)Acc No.[id number]:11/04/2024 Progress Notes Patient: Vinicius BIRD Provider: Sarita Gaona MD :1965 A ge:59 Y S ex:Female Date:11/04/2024 [facility] [id number] Pcp:Eugene Victoria MD Subjective: * Chief Complaints: * 1 . [...] ysterectomy 2014, partial colonoscopy to 40 cm, [facility] [place], Dr. Ronnie Rodriguez, negative 2017, endometrial biopsy, [...] ggressive non-smoker S he was born and [place], [place]. She has been to Arnel for 22 years and they have 2 healthy children. 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 * Medications: T aking Melatonin , [...] MD Date: 0 11/04/2024 Generated for Nyasia soto/Ayleen/Bryan on: 01:32 PM EDT History and Physical [...]
--- OUTSIDE RECORDS SUMMARY | 2024-11-18 11:30 | XMS_ITS ---
Author Organization Ronnie Gaona III, MD Address [address] [place] [address] Care Team Providers Care Costumer Assistant Name Role Phone Eugene Victoria MD Primary [...] Date Provider Diagnosis Ronnie Gaona III, MD [address] [place] [address] [place] [address] 11/18/2024 Ronnie Gaona Leukopenia, unspecified type D72.819 Assessments [...] Provider Name:Ronnie Gaona , 11/18/2024 03:30:00 PM, [address] [place] [address] [address]LA, [place], [address], Progress Notes * Ovi CHAPARROB:[birth year] (59 yo F)Acc No.[id number]:11/18/2024 Progress Notes Patient: Vinicius BIRD Provider: Sarita Gaona MD :1965 A ge:59 Y S ex:Female Date:11/18/2024 [id number] Pcp:Eugene Victoria MD Subjective: * Chief Complaints: [...] ysterectomy 2014, [place] 40 [place] [facility] [place] Ronnie [place], negative 2017, endometrial biopsy, [...] ggressive non-smoker S he was born and [place], [place]. She has been to Arnel for 22 years and they have 2 healthy children. 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 * Medications: T aking Melatonin , [...] Pending * Provider: Sarita Gaona MD Date: Generated for Nyasia soto/Ayleen/Bryan on: 01:31 PM [...]
[2024-11-18 11:35] LABS: MANUAL DIFF FLAG NO
[2024-11-18 12:12] LABS: Hematocrit 42.9 % (37.0-47.0); Hemoglobin 14.6 g/dl (12.0-16.0); Imm Gran Abs Auto 0.02 X10*3/uL (0.00-0.03); Imm Gran Pct Auto 0.4 % (0.0-0.4); Lymphocytes Absolute Auto 2.0 X10*3/uL (1.2-4.9); Mean Corpuscular HGB Conc 34.0 g/dl (31.0-35.0); Mean Corpuscular Hemoglobin 30.5 pg (27.0-33.0); Mean Corpuscular Volume 89.7 fL (80.0-98.0); NRBC Abs Auto 0.000 X10*3/uL (0.0-0.012); NRBC Pct Auto 0.0 /100WBC (0.0-0.2); Platelet Count 333 X10*3/uL (160-400); Red Blood Count 4.78 X10*6/uL (4.20-5.50); White Blood Count 5.2 X10*3/uL (4.8-10.8)
--- OUTSIDE RECORDS SUMMARY | 2024-11-18 13:32 | XMS_ITS | Patient Health Record ---
Author Organization Ronnie Gaona III, MD Address [address] [place] [address] Care Team Providers Care Vocational Training Instructor Name Role Phone Eugene Victoria MD Primary Care Provider Dr. Ronnie Garcia III Unavailable [phone] Allergies Allergen (clinical drug ingredient) Drug/Non Drug Allergy documented on EMR Reaction Allergy Type Onset Date Status Sulfacet-R Unknown Drug Allergy Active Penicillin G Benzathine Unknown Drug Allergy Active sulfamethoxazole / trimethoprim Bactrim Unknown Drug Allergy Active Results Component Value Reference Range Notes Complete Blood Count Auto Di ff Reviewed date:05/03/2024 07:54:57 AM Interpretation: Performing Lab:[facility], [address] [place] [address] Notes/Report: White Blood Count 4.7 4.8-10.8 X10*3/uL Red Blood Count 4.06 4.20-5.50 X10*6/uL Hemoglobin 12.7 12.0-16.0 g/dl Hematocrit 36.7 37.0-47.0 % Mean Corpuscular Volume 90.4 80.0-98.0 fL Mean Corpuscular Hemoglobin 31.3 27.0-33.0 pg Mean Corpuscular HGB Conc 34.6 31.0-35.0 g/dl Red Cell Distribution Width 12.6 11.0-16.0 % Platelet Count 338 160-400 X10*3/uL Mean Platelet Volume 9.0 9.4-12.3 fL Neutrophils Percent Auto 46.4 45-73 % Imm Gran Pct Auto 0.2 0.0-0.4 % Lymphocytes Percent Auto 43.5 20-40 % Monocytes Percent Auto 8.5 2-11 % Eosinophils Percent Auto 0.6 0-4 % Basophils Percent Auto 0.8 0-2 % NRBC Pct Auto 0.0 0.0-0.2 /100WBC Neutrophils Absolute Auto 2.2 2.0-8.3 x10*3/u L Imm Gran Abs Auto 0.01 0.00-0.03 X10*3/uL Lymphocytes Absolute Auto 2.1 1.2-4.9 X10*3/u L Monocytes Absolute Auto 0.4 0.1-1.2 X10*3/uL Eosinophils Absolute Auto 0.0 0.0-0.4 X10*3/u L Basophils Absolute Auto 0.0 0.0-0.2 X10*3/uL NRBC Abs Auto 0.000 0.0-0.012 X10*3/uL MM tomosynthesis screening B I Reviewed date:07/13/2024 09:33:41 AM Interpretation: Performing Lab: Notes/Report: [facility] [place] [address] Mammography Report Signed Patient: Vinicius Chaparro MR#: [id number] : 1965 Acct:[id number] Age/Sex: 59 / F ADM Date: 07/07/24 Loc: .MAMMO Attending Dr: Ronnie Gaona MD Ordering Physician: Ronnie Gaona MD Results: 1Negativ e Date of Service: 07/07/24 Follow Up: 1 Year From Orig ina Mammogram Procedure(s): MM tomosynthesis screening BI Accession Number(s): [id number] cc: Ronnie Gaona MD; Kenny De La Torre MD EXAMINATION: MM SCREENING DIGITAL BREAST TOMOSYNTHESIS, BILATERAL CLINICAL INFORMATION: Screening. Asymptomatic. COMPARISON: Mammography: Comparison is made with available priors TECHNIQUE: Digital breast mammography with tomosynthesis is performed in both the craniocaudal and mediolateral oblique views along with computer-aided detection (CAD). FINDINGS: There are scattered areas of fibroglandular density (ACR BI-RADS breast composition Category b). There are no significant masses, abnormal calcifications, or other abnormalities. MM/MM tomosynthesis screening BI IMPRESSION: No mammographic evidence of malignancy. ASSESSMENT: BI-RADS BI-RADS 1 - Negative RECOMMENDATION: Routine annual mammography screening. 1 year F/U This examination should not preclude the clinical evaluation of a suspicious palpable abnormality. This patient's information was entered into a reminder system with a target due date for their next mammogram. Electronically signed by: Daysi Yuen DO 07/12/2024 09:52 PM EDT RP Dictated By: Daysi Yuen DO Signed By: <Electronically signed by Daysi Yuen DO in OV> 07/12/242151 DD/ 1530 TD/TT: 07/07/24 1539 [employer]: [place] [facility] [address] [place], [place] [address] Mammography Report Signed Patient: Vinicius De La Garza MR#: [id number] : 1965 Acct:[id number] Age/Sex: 59 / F ADM Date: 07/07/24 Loc: HO.MAMMO Attending Dr: Ronnie Gaona MD Ordering Physician: Ronnie Gaona MD Results: 1Negativ e Date of Service: 04/01 Follow Up: 1 Year From Orig ina Mammogram Procedure(s): MM azucena osynthesis screening BI Accession Number(s): [id number] cc: Ronnie Gaona MD; Kenny De La Torre MD EXAMINATION: MM SCREENING DIGITAL BREAST TOMOSYNTHESIS, BILATERAL CLINICAL INFORMATION: Screening. Asymptomatic. COMPARISON: Mammography: Compari son is made with available priors TECHNIQUE: Digital breast mammo graphy with tomosynthesis is performed in both the craniocaudal and med iolateral oblique views along with computer-aided detection (CAD). FINDINGS: There are scattered areas of fibroglandular density (ACR BI-RADS breast composition Category b). There are no signifi cant masses, abnormal calcifications, or other abnormalities. M M/MM tomosynthesis screening BI IMPRESSION: No mammographic evid ence of malignancy. ASSESSMENT: BI-RADS BI-RADS 1 - Negative RECOMMENDATION: Routine annual mammo graphy screening. 1 year F/U This examination erin uld not preclude the clinical evaluation of a suspicious palpable abnormality. This patient's infor mation was entered into a reminder system with a target due date for their next mammogram. Electronically shantell d by: Daysi Yuen DO 07/12/2024 09:52 PM EDT RP Dictated By: Daysi Tobar i, DO Signed By: <Electron ically signed by Daysi Yuen DO in OV> 07/12/242151 DD/ 1530 TD/TT: 07/07/24 1539 [employer]: CT chest wo/w con Reviewed date:09/06/2024 07:16:48 PM Interpretation: Performing Lab: Notes/Report: [place] [address] CT Scan Report Signed Patient: Vinicius Chaparro MR#: [id number] : 1965 Acct:[id number] Age/Sex: 59 / F ADM Date: 08/25/24 Loc: HO.CT Attending Dr: Memo Monique MD Ordering Physician: Memo Monique MD Date of Service: 08/25/24 Procedure(s): CT chest wo/w IV con Accession Number(s): [id number] cc: Ronnie Gaona MD; Memo Monique MD Report Number: [id number]: Total DLP = 234.00 mGy-cm CLINICAL HISTORY: Q24.8 - Other specified congenital malformations of heart CT chest with and without contrast Comparison: CT/REG/SR - CT ABDOMEN PELVIS WITHOUT IV CONTRAST - 04/24/22 07:53 EDT Findings: The heart size is normal. The visualized thyroid is within normal limits. 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 No consolidation or effusion. The upper abdomen is unremarkable. No acute fractures. IMPRESSION: 1. Stable right pericardiac cyst. 2. No acute process. This document has been electronically signed by: Lor Cates MD on 08/25/2024 15:24:59 Dictated By: Lor Cates MD Signed By: <Electronically signed by Lor Cates MD in OV> 08/25/24 1526 DD/ 1524 TD/TT: 08/25/24 1524 [employer]: [address] [address] [address] Scan Report Signed Patient: Vinicius De La Garza MR#: [id number] : 1965 Acct:[id number] Age/Sex: 59 / F ADM Date: 08/25/24 Loc: HO.CT Attending Dr: Memo Monique MD Ordering Physician: Memo Monique MD Date of Service: 08/25/24 Procedure(s): CT aida st wo/w IV con Accession Number(s): [id number] cc: Ronnie Gaona MD; Memo Monique MD Report Number: [id number]: Total DLP = 234.00 mGy-cm CLINICAL HISTORY: Q2 4.8 - Other specified congenital malformations of heart CT chest with and wi thout contrast Comparison: CT/REG/S R - CT ABDOMEN PELVIS WITHOUT IV CONTRAST - 04/24/22 07:53 EDT Findings: The heart size is normal. The visualized thyro id is within normal limits. 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 No consolidation or effusion. The upper abdomen is unremarkable. No acute fractures. IMPRESSION: 1. Stable right stefania cardiac cyst. 2. No acute process. This document has be en electronically signed by: Lor Cates MD on 08/25/2024 15:24:59 Dictated By: Lor Cates MD Signed By: <Electron ically signed by Lor Cates MD in OV> 08/25/24 1526 DD/ 1524 TD/TT: 08/25/24 1524 [employer]: Complete Blood Count Auto Di ff (Not yet reviewed by provider) Interpretation: Performing Lab:[facility], [address] [place] [phone] Notes/Report: White Blood Count 5.2 4.8-10.8 X10*3/uL Red Blood Count 4.78 4.20-5.50 X10*6/uL Hemoglobin 14.6 12.0-16.0 g/dl Hematocrit 42.9 37.0-47.0 % Mean Corpuscular Volume 89.7 80.0-98.0 fL Mean Corpuscular Hemoglobin 30.5 27.0-33.0 pg Mean Corpuscular HGB Conc 34.0 31.0-35.0 g/dl Red Cell Distribution Width 11.9 11.0-16.0 % Platelet Count 333 160-400 X10*3/uL Mean Platelet Volume 9.4 9.4-12.3 fL Neutrophils Percent Auto 54.2 45-73 % Imm Gran Pct Auto 0.4 0.0-0.4 % Lymphocytes Percent Auto 38.1 20-40 % Monocytes Percent Auto 6.3 2-11 % Eosinophils Percent Auto 0.4 0-4 % Basophils Percent Auto 0.6 0-2 % NRBC Pct Auto 0.0 0.0-0.2 /100WBC Neutrophils Absolute Auto 2.8 2.0-8.3 x10*3/u L Imm Gran Abs Auto 0.02 0.00-0.03 X10*3/uL Lymphocytes Absolute Auto 2.0 1.2-4.9 X10*3/u L Monocytes Absolute Auto 0.3 [...] nonsmoker Additional Findings: Tobacco Non-User Aggressive non-smoker Problems Problem Type SNOMED Code ICD Code Onset Dates Problem Status W/U Status Risk Notes Problem 954900974 Overweight (E66.3) Active confirmed Her body mass index is 28. She has gained 3 pounds. We discussed diet and nutrition today. Problem 40613575 Palpitations (R00.2) Active confirmed She has had no palpitations. Since her last visit. Her cardiac examination today was normal. Problem 70177108 Leukopenia, unspecified type (D72.819) Active confirmed Her white blood cell count has improved to 4700 with a normal differential. The white blood cell count fluctuates. There is no evolution into the maturation defect syndrome. She has had no serious infections. She will have a white cell count in 6 months. Problem 63286089 Non-seasonal allergic rhinitis, unspecified trigger (J30.89) Active confirmed She is doing well on current medications and no changes necessary. Vital Signs Heart Rate 86 /min 05/05/2024 Temperature 98.8 degrees Fahrenheit 05/05/2024 Blood pressure diastolic 81 mm Hg 05/05/2024 Height 65 in 05/05/2024 Blood pressure systolic 141 mm Hg 05/05/2024 Weight 171 lbs 05/05/2024 BMI 28.45 kg/m2 05/05/2024 Encounters Encounter Location Date Provider Diagnosis Ronnie Gaona III, MD [address] [place] [address] [place] [address] 05/05/2024 Ronnie Gaona Leukopenia, unspecified type D72.819 ; Overweight E66.3 ; Palpitations R00.2 and Non-seasonal allergic rhinitis, unspecified trigger J30.89 Assessments Encounter Date Diagnosis (ICD Code) Assessment Notes Treat ment Notes Treatment Clinical Notes 05/05/2024 Overweight (ICD-10 - E66.3) Her body mass index is 28. She has gained 3 pounds. We discussed diet and nutrition today. 05/05/2024 Leukopenia, unspecified type (ICD-10 - D72.819) Her white blood cell count has improved to 4700 with a normal differential. The white blood cell count fluctuates. There is no evolution into the maturation defect syndrome. She has had no serious infections. She will have a white cell count in 6 months. 05/05/2024 Palpitations (ICD-10 - R00.2) She has had no palpitations. Since her last visit. Her cardiac examination today was normal. 05/05/2024 Non-seasonal allergic rhinitis, unspecified trigger (ICD-10 - J30.89) She is doing well on current medications and no changes necessary. Plan Of Treatment Pending Test Test Name Order Date Cholesterol, Total 07/28/2020 PROFILE, RANDOM (COMPREHENSIVE METABOLIC ) 08/02/2021 PROFILE, RANDOM (COMPREHENSIVE METABOLIC ) 01/06/2021 PROFILE, RANDOM (COMPREHENSIVE METABOLIC ) 02/20/2023 PROFILE, RANDOM (COMPREHENSIVE METABOLIC ) 02/01/2021 PROFILE, RANDOM (COMPREHENSIVE METABOLIC ) 08/03/2020 CBC w DIFF 08/14/2023 CBC w DIFF 12/09/2018 CBC w DIFF 08/02/2021 CBC w DIFF 05/05/2024 CBC w DIFF 02/14/2022 CBC w DIFF 01/06/2021 CBC w DIFF 04/21/2019 CBC w DIFF 02/01/2021 CBC with MANUAL DIFFERENTIAL 01/20/2019 CBC w/o DIFF 08/03/2020 CBC WITH AUTO DIFF 11/05/2023 CBC WITH AUTO DIFF 02/20/2023 Complete Blood Count Auto Diff Next Appt Details Provider Name:Ronnie Gaona , 11/18/2024 03:30:00 PM, [address] [place] [address] , [place], [place], [address], Insurance Providers Payer Name Payer Address Payer Phone Subscriber Number Group Number Insured Name Patient Relationship to Insured Coverage Start Date Coverage End Date [employer] of [place] [address] [address] [place] [address] [id number] 1 [employer]out[employer] Vinicius Erickson Self - patient [...] findings 2013 partial colonoscopy to 40 cm, [facility] [place]. Sarita Rodriguez, negative 2018 hysterectomy 2014
== END 2024-11-18 11:13 | disposition home or self-care (01) ==
LOC: HO.LAB 11:12
PROVIDERS: PCP Internal Medicine Medical Oncology; Visit Provider Internal Medicine Medical Oncology
DX: D72.819 Decreased white blood cell count, unspecified (principal)
CPT/HCPCS: 36415; 85025

== ENCOUNTER 2025-01-22 12:54 | Outpatient (AMB) | payer OTHER, SELFPAY ==
--- OUTSIDE RECORDS SUMMARY | 2023-08-14 10:30 | XMS_ITS ---
Author Organization Ronnie Gaona III, MD Address [address] [place] [address] Care Team Providers Care Network Operations Specialist Name Role Phone Charlene Raya (Gowen) Primary Care Provider Un available Dr. Ronnie Gaona III [facility] Allergies Allergen (clinical drug ingredient) Drug/Non Drug Allergy documented on EMR Reaction Allergy Type Onset Date Status Sulfacet-R Unknown Drug Allergy Active Penicillin G Benzathine Unknown Drug Allergy Active sulfamethoxazole / trimethoprim Bactrim Unknown Drug Allergy Active REASON FOR VISIT Leukopenic, Allergies Medications Medication SIG (Take, Route, Fr equency, Duration) Notes Start Date End Date Status traZODone HCl 50 MG Oral Active Omeprazole 40 MG Oral Act dani Melatonin Active Social History Tobacco Use: Social History Observation Description Date Details (start date - stop date) Never Smoker NA - NA Tobacco Use/Smoking Question Answer Notes Patient is a nonsmoker Additional Findings: Tobacco Non-User Aggressive non-smoker Vital Signs Temperature 97.0 degrees Fahrenheit 08/14/19 24 Blood pressure systolic 141 mm Hg 08/14/19 24 Blood pressure diastolic 90 mm Hg 024 Heart Rate 83 /min 08/14/2023 Height 65 in 08/14/2023 Weight 174 lbs 08/14/2023 BMI 28.95 kg/m2 08/14/2023 Encounters Encounter Location Date Provider Diagnosis Ronnie Gaona III, MD [address] [place] [address] [place] [address] 08/14/2023 Ronnie Gaona Leukopenia, unspecified type D72.819 Assessments Encounter Date Diagnosis (ICD Code) Assessment Notes Treatment Notes Treatment Clinical Notes 08/14/2023 Leukopenia, unspecified type (ICD-10 - D72.819) The leukopenia is still present. The white blood cell count fluctuates. There is no evolution into the maturation defect syndrome. She has had no serious infections. She will have a white cell count in 6 months followed by a telephone visit. Plan Of Treatment Medication Medication Name Sig Start Date Stop Date Notes traZODone HCl 50 MG Oral Omeprazole 40 MG Oral Melatonin Pending Test Test Name Order Date CBC w DIFF 08/14/2023 Next Appt Details Follow Up: end october, Reason: OV review labs Provider Name:Ronnie Gaona , 11/18/2025 03:30:00 PM, [address] [place] [address], [address], [id number], Progress Notes * Ovi CHAPARROB:[birth year] (58 yo F)Acc No.[id number]:08/14/2023 Progress Notes Patient: Vinicius Rangel Provider: Sarita Gaona MD :1965 A ge:58 Y S ex:Female Date:08/14/2023 Address:[address] [place], [place] [id number] Pcp:Eugene Victoria MD Subjective: * Chief Complaints: * L eukopenicAllergies * HPI: C OVID-19 Screening: She returns for ongoing surveillance of her leukopenia. Her white blood cell count is now 3500. She has had no infections. The hematocrit and platelets are within normal limits. She continues to work full-time. She is taking no new medications. Her spleen is not palpable. Questions H ave you experienced fever, chills, cough, sore throat, shortness of breath, difficulty breathing, muscle aches, loss of taste or smell? N o H ave you been exposed to the virus within the last 10 days? N o H ave you travelled internationally in the last 10 days? N o H ave you been exposed to COVID-19 in the past? Y es * ROS: G eneral/Constitutional: pain o nly normal aches and pains. C hills d enies.?Fatigue a dmits. F ever d enies. E NT: Decreased hearing d enies. R espiratory: Cough d enies. C ardiovascular: Chest pain with exertion d enies. D yspnea on exertion?denies. S hortness of breath d enies. G astrointestinal: Constipation o ccasional. D ecreased appetite d enies. D iarrhea d enies. H eartburn d enies. N ausea d enies. R ectal bleeding d enies. V omiting d enies. H ematology: bruising d enies. p etechiae d enies. S wollen glands n one have been noted. G enitourinary: Frequent urination d enies. M usculoskeletal: Muscle aches d enies. P ainful joints d enies. S ciatica d enies. W eakness d enies. S kin: Itching d enies. R beto d enies. S kin lesion(s)?denies. N eurologic: Difficulty speaking d enies. D izziness d enies.?Headache d enies. L ow back pain d enies. P sychiatric: Depressed mood d enies. * Medical History: * Surgical History: [place] ysterectomy 2015[place] 40 [place] [facility] [place], negative 2018endometrial biopsy, Dr. Whipple, negative findings 2013laparoscopic cholecystectomy, Dr. Busby, acalculous cholecystitis 2004dental extractions, for multiple loose, no bleeding 1988fractured left leg 01/2019Upper endoscopy 05/2022 * Hospitalization/Major Diagno stic Procedure: D enies Past Hospitalization * Family History: F ather: 87 yrs, Dementia, atrial fibrillation, hypertension, diagnosed with Hyperlipidemia, CVD. M other: alive 84 yrs, A-fib, diagnosed with HTN. S on(s): alive. D aughter(s): alive. S iblings: alive. 2 brother(s) - healthy. 1 son(s) , 1 daughter(s) - healthy. .? Her children are twins and both are healthy. One boy and one girl. There is no family history of cancer. There is no history of diabetes. There is a strong history of atrial fibrillation and hypertension. There is no history of bone marrow disorders. Her father who is , had atrial fibrillation and hypertension. Her mother is living with hypertension. Both of her brothers are hypertensive. * Social History: T obacco Use: T obacco Use/Smoking Vania siddiqi is a n onsmoker A dditional Findings: Tobacco Non-User A ggressive non-smoker S he was born and [place], [place]. She has been to Arnel for 22 years and they have 2 healthy children. 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 * Medications: T akingOmeprazole 40 MG Capsule Delayed Release Oral traZODone HCl 50 MG Tablet Oral Taking Omeprazole 40 MG Capsule Delayed Release Oral Taking traZODone HCl 50 MG Tablet Oral DiscontinuedMelatonin Medication List reviewed and reconciled with the patientDiscontinued Melatonin Medication List reviewed and reconciled with the patient * Allergies: P enicillin G BenzathineSulfacet-RBactrimno[Allergies Verified] Objective: * Vitals: H t: 65, Wt: 174, BMI:28.95, BP: 141/90, HR: 83, Temp: 97.0, Wt-k.93. * Examination: G eneral Examination: GENERAL APPEARANCE: p kamila, well nourished, well developed, in no acute distress, calm and relaxed , overweight , woman. HEAD: a traumatic, normocephalic. EYES: e ramesh, perrla, anicteric, conjugate. EARS: n ormal. NOSE: s eptum intact. ORAL CAVITY: n ormal, unremarkable. NECK/THYROID: n o jugular venous distention, no carotid bruit, thyroid normal. LYMPH NODES: n o enlarged lymph nodes,spleen normal. SKIN: n o suspicious lesions, anicteric. HEART: n o clicks, gallops, murmurs, or rubs, regular rhythm, S1, S2 normal, no s3, or vascular bruits. LUNGS: c lear to auscultation . BREASTS: n ot examined. ABDOMEN: b owel sounds normal, no ascites, no organomegaly, no mass. RECTAL EXAM: n ot examined. MUSCULOSKELETAL: e xtremities unremarkable, no clubbing, cyanosis or edema. PERIPHERAL PULSES: n ormal. NEUROLOGIC: a lert and oriented, cranial nerves 2-12 grossly intact, deep tendon reflexes 2+ symmetrical, motor strength normal upper and lower extremities, sensory exam intact. PSYCH: a lert, oriented. Assessment: * Assessment: 1. L eukopenia, unspecified type - D72.819 (Primary), The leukopenia is still present. The white blood cell count fluctuates. There is no evolution into the maturation defect syndrome. She has had no serious infections. She will have a white cell count in 6 months followed by a telephone visit.? Plan: * Treatment: * Procedure Codes: * Preventive Medicine: Counseling: C are goal follow-up plan: Counseling for abnormal BMI given Y es Above Normal BMI Follow-up D ietary management education, guidance, and counseling, Dietary needs education, Exercise promotion: strength training, Exercise promotion: stretching, Feeding regime, Giving encouragement to exercise, Lifestyle education regarding diet, Nutrition / feeding management, Nutrition therapy, Prescribed activity/exercise education, Prescribed diet education, Prescribed dietary intake, Special diet education, Weight monitoring , Intervention, Order not done: Medical or Other reason not done * Follow Up: e october (Reason: OV review labs ) * Images: * Sign off status: Completed true * Provider: Sarita Gaona MD Date: 0 08/14/2023 Generated for Nyasia soto/Ayleen/Marvinsmitting on: 1 03/25/2024 04:47 PM EST History and Physical Notes * HPI (History of Present Illness) Category Sub-Category Detail Notes COVID-19 Screening Questions Have you had any new onset fever, chills, cough, congestion, sore throat, shortness of breath, muscle aches?: No Have you been exposed to the virus withi n the last 10 days?: No Have you travelled internationally in last 10 days?: No Have you been exposed to COVID-19 in the past?: Yes Examination Category Sub-Category Detail Notes General Examination GENERAL APPEARANCE: pleasant , well nourished, well developed, in no acute distress, calm and relaxed , overweight , woman HEAD: atraumatic, normocep halic EYES: eomi, perrla, anicte alan, conjugate EARS: normal NOSE: septum intact NECK/THYROID: no jugular venous di stention, no carotid bruit, thyroid normal HEART: no clicks, gallops, murmurs, or rubs, regular rhythm, S1, S2 normal, no s3, or vascular bruits LUNGS: clear to auscultatio n ABDOMEN: bowel sounds normal, no ascites, no organomegaly, no mass NEUROLOGIC: alert and oriented, cranial nerves 2-12 grossly intact, deep tendon reflexes 2+ symmetrical, motor strength normal upper and lower extremities, sensory exam intact SKIN: no suspicious lesion s, anicteric PERIPHERAL PULSES: normal BREASTS: not examined MUSCULOSKELETAL: extremities unremark able, no clubbing, cyanosis or edema LYMPH NODES: no enlarged lymph no suzanna,spleen normal RECTAL EXAM: not examined PSYCH: alert, oriented ORAL CAVITY: normal, unremarkable
--- OUTSIDE RECORDS SUMMARY | 2023-11-05 10:30 | XMS_ITS ---
Author Organization Ronnie Gaona III, MD Address [address] [place] [address] [place] [address] Care Team Providers Care Video Coordinator Name Role Phone Charlene Raya ([place]) Primary Care Provider Un available Dr. Ronnie Gaona III [facility] Allergies Allergen (clinical drug ingredient) Drug/Non Drug Allergy documented on EMR Reaction Allergy Type Onset Date Status Sulfacet-R Unknown Drug Allergy Active Penicillin G Benzathine Unknown Drug Allergy Active sulfamethoxazole / trimethoprim Bactrim Unknown Drug Allergy Active REASON FOR VISIT Leukopenia, Allergies Medications Medication SIG (Take, Route, Fr equency, Duration) Notes Start Date End Date Status traZODone HCl 50 MG Oral Active Melatonin Active Omeprazole 40 MG Oral Act dani Social History Tobacco Use: Social History Observation Description Date Details (start date - stop date) Never Smoker NA - NA Tobacco Use/Smoking Question Answer Notes Patient is a nonsmoker Additional Findings: Tobacco Non-User Aggressive non-smoker Vital Signs Height 65 in 11/05/2023 Weight 174 lbs 11/05/2023 BMI 28.95 kg/m2 11/05/2023 Encounters Encounter Location Date Provider Diagnosis Ronnie Gaona III, MD [address] [place] [address] [place] [address] 11/05/2023 Ronnie Gaona Leukopenia, unspecified type D72.819 ; Overweight E66.3 ; Palpitations R00.2 and Non-seasonal allergic rhinitis, unspecified trigger J30.89 Assessments Encounter Date Diagnosis (ICD Code) Assessment Notes Treat ment Notes Treatment Clinical Notes 11/05/2023 Leukopenia, unspecified type (ICD-10 - D72.819) The leukopenia is still present. The white blood cell count fluctuates. There is no evolution into the maturation defect syndrome. She has had no serious infections. She will have a white cell count in 6 months followed by a telephone visit. 11/05/2023 Overweight (ICD-10 - E66.3) Her body mass index is slightly elevated. She has lost 1 pound. We discussed diet and nutrition today. 11/05/2023 Palpitations (ICD-10 - R00.2) She has had no palpitations. Since her last visit. Her cardiac examination today was normal. 11/05/2023 Non-seasonal allergic rhinitis, unspecified trigger (ICD-10 - J30.89) She is doing well on current medications and no changes necessary. Plan Of Treatment Medication Medication Name Sig Start Date Stop Date Notes traZODone HCl 50 MG Oral Melatonin Omeprazole 40 MG Oral Pending Test Test Name Order Date CBC WITH AUTO DIFF 11/05/2023 Next Appt Details Follow Up: 6 Months, Reason: OV Provider Name:Ronnie Gaona , 11/18/2025 03:30:00 PM, [address] [place] [address], [address], Progress Notes * Ovi CHAPARROB:[birth year] (58 yo F)Acc No.[id number]:11/05/2023 Patient: Vinicius BIRD Provider: Sarita Gaona MD :1965 A ge:58 Y S ex:Female Date:11/05/2023 Address:[address] [place], [place] [id number] Pcp:Eugene Victoria MD Subjective: * Chief Complaints: * L eukopeniaAllergies * HPI: * : She returns for management of her iron deficiency and leukopenia. Her white blood cell count has fallen to 3300. Her hemoglobin and hematocrit normal. Platelet count is unremarkable she has had no infections since her last visit. She will continue on observation. Telehealth L ocation of provider rendering services: { ...} [address] [place] [address] [address] [facility] [address] L ocation of patient: zenaida cortes listed in demographics for today's visit P atient identification confirmed using: BROOKE Gaines ame elehealth method: T elephone only. Patient not visible to care provider. C onsent: P atient verbally consented to treatment, Patient verbally consented to billing insurance company, Patient informed of any privacy concerns related to method of visit T otal time spent with patient (mins) 1 5 * ROS: G eneral/Constitutional: pain o nly normal aches and pains. C hills d enies.?Fatigue a dmits. F ever d enies. E NT: Decreased hearing d enies. R espiratory: Cough d enies. C ardiovascular: Chest pain with exertion d enies. D yspnea on exertion?denies. S hortness of breath d enies. G astrointestinal: Constipation d enies. D ecreased appetite d enies.?Diarrhea d enies. H eartburn d enies. N ausea d enies. R ectal bleeding?denies. V omiting d enies. H ematology: bruising [...] h ysterectomy 2015partial colonoscopy to 40 cm, [facility], Dr. Ronnie Rodriguez, negative 2018endometrial biopsy, Dr. Whipple, negative findings 2014laparoscopic cholecystectomy, Dr. Busby, acalculous cholecystitis 2005dental extractions, for multiple loose, no bleeding 1989fractured left leg 01/2019Upper endoscopy 05/2022 * Hospitalization/Major [...] History: T obacco Use: T obacco Use/Smoking P neeru is a n onsmoker A dditional Findings: Tobacco Non-User A ggressive non-smoker S he was born and [place], [place]. She has been to [place] for 22 years and they have 2 healthy children. 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 * Medications: T akingMelatonin Omeprazole 40 MG Capsule Delayed Release Oral traZODone HCl 50 MG Tablet Oral Medication List reviewed and reconciled with the patientTaking Melatonin Taking Omeprazole 40 MG Capsule Delayed Release Oral Taking traZODone HCl 50 MG Tablet Oral Medication List reviewed and reconciled with the patient * Allergies: P enicillin G BenzathineSulfacet-RBactrimno[Allergies Verified] Objective: * Vitals: H t: 65, Wt: 174, BMI:28.95, Wt-k.93. * P ast Orders: Lab:Complete Blood Count Aut o Diff * Collection Date 08/13/2023 02/15/2023 08/10/2022 Collection Time 10:17 AM 12:33 PM 01:42 PM Order Date 08/13/2023 02/15/2023 08/10/2022 White Blood Count 3.3 L (Ref Range: 4.8-10.8 X10*3/uL) 4.0 L (Ref Range: 4.8-10.8 X10*3/uL) 5.5 (Ref Range: 4.8-10.8 X10*3/uL) Red Blood Count 4.36 (Ref Range: 4.20-5.50 X10*6/uL) 4.34 (Ref Range: 4.20-5.50 X10*6/uL) 4.42 (Ref Range: 4.20-5.50 X10*6/uL) Hemoglobin 13.8 (Ref Range: 12.0-16.0 g/dl) 13.7 (Ref Range: 12.0-16.0 g/dl) 13.6 (Ref Range: 12.0-16.0 g/dl) Hematocrit 39.5 (Ref Range: 37.0-47.0 %) 39.7 (Ref Range: 37.0-47.0 %) 39.8 (Ref Range: 37.0-47.0 %) Mean Corpuscular Volume 90.6 (Ref Range: 80.0-98.0 fL) 91.5 (Ref Range: 80.0-98.0 fL) 90.0 (Ref Range: 80.0-98.0 fL) Mean Corpuscular Hemoglobin 31.7 (Ref Range: 27.0-33.0 pg) 31.6 (Ref Range: 27.0-33.0 pg) 30.8 (Ref Range: 27.0-33.0 pg) Mean Corpuscular HGB Conc 34.9 (Ref Range: 31.0-35.0 g/dl) 34.5 (Ref Range: 31.0-35.0 g/dl) 34.2 (Ref Range: 31.0-35.0 g/dl) Red Cell Distribution Width 12.6 (Ref Range: 11.0-16.0 %) 12.8 (Ref Range: 11.0-16.0 %) 12.9 (Ref Range: 11.0-16.0 %) Platelet Count 336 (Ref Range: 160-400 X10*3/uL) 345 (Ref Range: 160-400 X10*3/uL) 372 (Ref Range: 160-400 X10*3/uL) Mean Platelet Volume 9.2 L (Ref Range: 9.4-12.3 fL) 9.0 L (Ref Range: 9.4-12.3 fL) 9.5 (Ref Range: 9.4-12.3 fL) Neutrophils Percent Auto 45.5 (Ref Range: 45-73 %) 40.8 L (Ref Range: 45-73 %) 51.9 (Ref Range: 45-73 %) Imm Gran Pct Auto 0.3 (Ref Range: 0.0-0.4 %) 0.3 (Ref Range: 0.0-0.4 %) 0.4 (Ref Range: 0.0-0.4 %) Lymphocytes Percent Auto 44.3 H (Ref Range: 20-40 %) 49.1 H (Ref Range: 20-40 %) 39.9 (Ref Range: 20-40 %) Monocytes Percent Auto 8.1 (Ref Range: 2-11 %) 8.0 (Ref Range: 2-11 %) 6.2 (Ref Range: 2-11 %) Eosinophils Percent Auto 0.9 (Ref Range: 0-4 %) 1.0 (Ref Range: 0-4 %) 0.7 (Ref Range: 0-4 %) Basophils Percent Auto 0.9 (Ref Range: 0-2 %) 0.8 (Ref Range: 0-2 %) 0.9 (Ref Range: 0-2 %) NRBC Pct Auto 0.0 (Ref Range: 0.0-0.2 /100WBC) 0.0 (Ref Range: 0.0-0.2 /100WBC) 0.0 (Ref Range: 0.0-0.2 /100WBC) Neutrophils Absolute Auto 1.5 L (Ref Range: 2.0-8.3 x10*3/uL) 1.6 L (Ref Range: 2.0-8.3 x10*3/uL) 2.8 (Ref Range: 2.0-8.3 x10*3/uL) Imm Gran Abs Auto 0.01 (Ref Range: 0.00-0.03 X10*3/uL) 0.01 (Ref Range: 0.00-0.03 X10*3/uL) 0.02 (Ref Range: 0.00-0.03 X10*3/uL) Lymphocytes Absolute Auto 1.5 (Ref Range: 1.2-4.9 X10*3/uL) 2.0 (Ref Range: 1.2-4.9 X10*3/uL) 2.2 (Ref Range: 1.2-4.9 X10*3/uL) Monocytes Absolute Auto 0.3 (Ref Range: 0.1-1.2 X10*3/uL) 0.3 (Ref Range: 0.1-1.2 X10*3/uL) 0.3 (Ref Range: 0.1-1.2 X10*3/uL) Eosinophils Absolute Auto 0.0 (Ref Range: 0.0-0.4 X10*3/uL) 0.0 (Ref Range: 0.0-0.4 X10*3/uL) 0.0 (Ref Range: 0.0-0.4 X10*3/uL) Basophils Absolute Auto 0.0 (Ref Range: 0.0-0.2 X10*3/uL) 0.0 (Ref Range: 0.0-0.2 X10*3/uL) 0.1 (Ref Range: 0.0-0.2 X10*3/uL) NRBC Abs Auto 0.000 (Ref Range: 0.0-0.012 X10*3/uL) 0.000 (Ref Range: 0.0-0.012 X10*3/uL) 0.000 (Ref Range: 0.0-0.012 X10*3/uL) * Lab:Comprehensive Met. Panel * Collection Date 08/13/2023 02/13/2022 07/26/2021 Collection Time 10:17 AM 11:06 AM 09:25 AM Order Date 08/13/2023 02/13/2022 07/26/2021 Sodium 141 (Ref Range: 135-145 mmol/L) 138 (Ref Range: 135-145 mmol/L) 139 (Ref Range: 135-145 mmol/L) Bilirubin Total 0.9 (Ref Range: 0.0-1.0 mg/dL) 0.7 (Ref Range: 0.0-1.0 mg/dL) 0.9 (Ref Range: 0.0-1.0 mg/dL) Aspartate Amino Transferase 18 (Ref Range: 5-31 U/L) 21 (Ref Range: 5-31 U/L) 25 (Ref Range: 5-31 U/L) Alanine Aminotransferase 19 (Ref Range: 0-31 U/L) 19 (Ref Range: 0-31 U/L) 25 (Ref Range: 0-31 U/L) Total Protein 7.5 (Ref Range: 6.5-8.0 g/dL) 7.7 (Ref Range: 6.5-8.0 g/dL) 7.1 (Ref Range: 6.5-8.0 g/dL) Albumin Level 4.6 (Ref Range: 3.5-5.0 g/dL) 4.7 (Ref Range: 3.5-5.0 g/dL) 4.4 (Ref Range: 3.5-5.0 g/dL) Alkaline Phosphatase 66 (Ref Range: 39-117 U/L) 70 (Ref Range: 39-117 U/L) 71 (Ref Range: 39-117 U/L) Potassium 4.2 (Ref Range: 3.3-5.1 mmol/L) 4.7 (Ref Range: 3.3-5.1 mmol/L) 4.5 (Ref Range: 3.3-5.1 mmol/L) Chloride 107 (Ref Range: 96-108 mmol/L) 103 (Ref Range: 96-108 mmol/L) 107 (Ref Range: 96-108 mmol/L) Carbon Dioxide 24 (Ref Range: 22-29 mmol/L) 26 (Ref Range: 22-29 mmol/L) 25 (Ref Range: 22-29 mmol/L) Anion Gap 14 (Ref Range: 12-20) 14 (Ref Range: 12-20) 12 (Ref Range: 12-20) Blood Urea Nitrogen 12 (Ref Range: 9-16 mg/dL) 14 (Ref Range: 9-16 mg/dL) 15 (Ref Range: 9-16 mg/dL) Creatinine 0.80 (Ref Range: 0.5-1.4 mg/dL) 0.81 (Ref Range: 0.5-1.4 mg/dL) 0.79 (Ref Range: 0.5-1.4 mg/dL) Estimated Glomerular Filt Rate > 60 > 60 > 60 Glucose Random 124 H (Ref Range: 60-115 mg/dL) 106 (Ref Range: 60-115 mg/dL) 113 (Ref Range: 60-115 mg/dL) Calcium 9.7 (Ref Range: 8.4-10.2 mg/dL) 9.9 (Ref Range: 8.4-10.2 mg/dL) 9.0 (Ref Range: 8.4-10.2 mg/dL) Assessment: * Assessment: 1. L eukopenia, unspecified type - D72.819 (Primary) N otes :The leukopenia is still present. The white blood cell count fluctuates. There is no evolution into the maturation defect syndrome. She has had no serious infections. She will have a white cell count in 6 months followed by a telephone visit. 2 . O verweight - E66.3 N otes :Her body mass index is slightly elevated. She has lost 1 pound. We discussed diet and nutrition today. 3 . P alpitations - R00.2 N otes :She has had no palpitations. Since her last visit. Her cardiac examination today was normal. 4 . N on-seasonal allergic rhinitis, unspecified trigger - J30.89 ?Notes :She is doing well on current medications and no changes necessary. Plan: * Treatment: * Procedure Codes: * [...] Other reason not done * Follow Up: 6 Months (Reason: OV) * Images: * Sign off status: Completed true * Provider: Sarita Gaona MD Date: 0 11/05/2023 Generated for Nyasia soto/Ayleen/Martaitting on: 03/25/2024 04:48 PM EST History and Physical Notes * HPI (History of Present Illness) Category Sub-Category Detail Notes Telehealth Location of [facility] rendering services:: {...} [address] [facility] [address] Location of patient:: address listed in demographics for today's visit Patient identification confirmed using:: Name, Telehealth method:: Telephone only. Shy ent not visible to care provider. Consent:: Patient verbally c onsented to treatment, Patient verbally consented to billing insurance company, Patient informed of any privacy concerns related to method of visit Total time spent with patient (mins): 15
--- OUTSIDE RECORDS SUMMARY | 2024-05-05 10:45 | XMS_ITS ---
Author Organization Ronnie Gaona III, MD Address [address] [place] [address] Care Team Providers Care Food Service Utility Worker Name Role Phone Charlene Raya ([place]) Primary Care Provider Un available Dr. Ronnie Gaona III [facility] Allergies Allergen (clinical drug ingredient) Drug/Non Drug Allergy documented on EMR Reaction Allergy Type Onset Date Status Sulfacet-R Unknown Drug Allergy Active Penicillin G Benzathine Unknown Drug Allergy Active sulfamethoxazole / trimethoprim Bactrim Unknown Drug Allergy Active REASON FOR VISIT Leukocytopenia, Allergic rhinitis Medications Medication SIG (Take, Route, Fr equency, Duration) Notes Start Date End Date Status Melatonin Active Omeprazole 40 MG Oral Act dani traZODone HCl 50 MG Oral Active Social History Tobacco Use: Social History Observation Description Date Details (start date - stop date) Never Smoker NA - NA Tobacco Use/Smoking Question Answer Notes Patient is a nonsmoker Additional Findings: Tobacco Non-User Aggressive non-smoker Vital Signs Temperature 98.8 degrees Fahrenheit 05/06/19 25 Blood pressure systolic 141 mm Hg 05/06/19 25 Blood pressure diastolic 81 mm Hg 025 Heart Rate 86 /min 05/05/2024 Height 65 in 05/05/2024 Weight 171 lbs 05/05/2024 BMI 28.45 kg/m2 05/05/2024 Encounters Encounter Location Date Provider Diagnosis Ronnie Gaona III, MD [address] [place] [address] [place] [address] 05/05/2024 Ronnie Gaona Leukopenia, unspecified type D72.819 ; Overweight E66.3 ; Palpitations R00.2 and Non-seasonal allergic rhinitis, unspecified trigger J30.89 Assessments Encounter Date Diagnosis (ICD Code) Assessment Notes Treat ment Notes Treatment Clinical Notes 05/05/2024 Leukopenia, unspecified type (ICD-10 - D72.819) Her white blood cell count has improved to 4700 with a normal differential. The white blood cell count fluctuates. There is no evolution into the maturation defect syndrome. She has had no serious infections. She will have a white cell count in 6 months. 05/05/2024 Overweight (ICD-10 - E66.3) Her body mass index is 28. She has gained 3 pounds. We discussed diet and nutrition today. 05/05/2024 Palpitations (ICD-10 - R00.2) She has had no palpitations. Since her last visit. Her cardiac examination today was normal. 05/05/2024 Non-seasonal allergic rhinitis, unspecified trigger (ICD-10 - J30.89) She is doing well on current medications and no changes necessary. Plan Of Treatment Medication Medication Name Sig Start Date Stop Date Notes Melatonin Omeprazole 40 MG Oral traZODone HCl 50 MG Oral Pending Test Test Name Order Date CBC w DIFF 05/05/2024 Next Appt Details Follow Up: 6 Months, Reason: ov review labs Provider Name:Ronnie Gaona , 11/18/2025 03:30:00 PM, [address] [place] [address], [address], [address], Progress Notes * KATELIN MICHELLEOvi POLANCOB:[birth year] (59 yo F)Acc No.[id number]:05/05/2024 Progress Notes Patient: Vinicius BIRD Provider: Sarita Gaona MD :1965 A ge:59 Y S ex:Female Date:05/05/2024 Address:[address] [place], [place] [id number] Pcp:Eugene Victoria MD Subjective: * Chief Complaints: * L eukocytopeniaAllergic rhinitis * HPI: C OVID-19 Screening: She returns to the office for ongoing surveillance of a low white blood cell count. Since her last visit she has been working full-time and has had no significant bacterial infections. She reports a URI but nothing more serious. Her examination today was unremarkable.Her white blood cell count has improved to 4.7 with a normal differential. Observation was continued. She will be seen back in 6 months. Unless there is deterioration she will then be seen once a year. Questions H ave you had any new onset fever, chills, cough, congestion, sore throat, shortness of breath, muscle aches? N o * ROS: G eneral/Constitutional: pain o nly [...] Medical History: * Surgical History: h ysterectomy 2014partial colonoscopy to 40 cm, [facility] [place], Dr. Ronnie Rodriguez, negative 2018endometrial biopsy, Dr. Whiplpe, negative findings 2013laparoscopic cholecystectomy, Dr. Busby, acalculous cholecystitis 2004dental extractions, for multiple loose, no bleeding 1988fractured left leg 01/2019Upper endoscopy 05/2022 * Hospitalization/Major Diagno stic Procedure: D ensummer Past Hospitalization * Family History: F ather: 87 yrs, Dementia, atrial fibrillation, hypertension, diagnosed with CVD, Hyperlipidemia. M other: alive 84 yrs, A-fib, diagnosed [...] ggressive non-smoker S he was born and [place], [place]. She has been to Arnel for 22 years and they have 2 healthy children. 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 * Medications: T akingMelatonin Omeprazole 40 [...] Objective: * Vitals: H t: 65, Wt: 171, BMI:28.45, BP: 141/81, HR: 86, Temp: 98.8, Wt-k.56. * P ast Orders: Lab:Complete Blood Count Aut o Diff * Collection Date 05/02/2024 11/05/2023 08/13/2023 Collection Time 01:53 PM 10:52 AM 10:17 AM Order Date 05/02/2024 11/05/2023 08/13/2023 White Blood Count 4.7 L (Ref Range: 4.8-10.8 X10*3/uL) 4.4 L (Ref Range: 4.8-10.8 X10*3/uL) 3.3 L (Ref Range: 4.8-10.8 X10*3/uL) Red Blood Count 4.06 L (Ref Range: 4.20-5.50 X10*6/uL) 4.49 (Ref Range: 4.20-5.50 X10*6/uL) 4.36 (Ref Range: 4.20-5.50 X10*6/uL) Hemoglobin 12.7 (Ref Range: 12.0-16.0 g/dl) 14.1 (Ref Range: 12.0-16.0 g/dl) 13.8 (Ref Range: 12.0-16.0 g/dl) Hematocrit 36.7 L (Ref Range: 37.0-47.0 %) 41.6 (Ref Range: 37.0-47.0 %) 39.5 (Ref Range: 37.0-47.0 %) Mean Corpuscular Volume 90.4 (Ref Range: 80.0-98.0 fL) 92.7 (Ref Range: 80.0-98.0 fL) 90.6 (Ref Range: 80.0-98.0 fL) Mean Corpuscular Hemoglobin 31.3 (Ref Range: 27.0-33.0 pg) 31.4 (Ref Range: 27.0-33.0 pg) 31.7 (Ref Range: 27.0-33.0 pg) Mean Corpuscular HGB Conc 34.6 (Ref Range: 31.0-35.0 g/dl) 33.9 (Ref Range: 31.0-35.0 g/dl) 34.9 (Ref Range: 31.0-35.0 g/dl) Red Cell Distribution Width 12.6 (Ref Range: 11.0-16.0 %) 12.5 (Ref Range: 11.0-16.0 %) 12.6 (Ref Range: 11.0-16.0 %) Platelet Count 338 (Ref Range: 160-400 X10*3/uL) 321 (Ref Range: 160-400 X10*3/uL) 336 (Ref Range: 160-400 X10*3/uL) Mean Platelet Volume 9.0 L (Ref Range: 9.4-12.3 fL) 9.4 (Ref Range: 9.4-12.3 fL) 9.2 L (Ref Range: 9.4-12.3 fL) Neutrophils Percent Auto 46.4 (Ref Range: 45-73 %) 53.7 (Ref Range: 45-73 %) 45.5 (Ref Range: 45-73 %) Imm Gran Pct Auto 0.2 (Ref Range: 0.0-0.4 %) 0.2 (Ref Range: 0.0-0.4 %) 0.3 (Ref Range: 0.0-0.4 %) Lymphocytes Percent Auto 43.5 H (Ref Range: 20-40 %) 37.5 (Ref Range: 20-40 %) 44.3 H (Ref Range: 20-40 %) Monocytes Percent Auto 8.5 (Ref Range: 2-11 %) 7.4 (Ref Range: 2-11 %) 8.1 (Ref Range: 2-11 %) Eosinophils Percent Auto 0.6 (Ref Range: 0-4 %) 0.5 (Ref Range: 0-4 %) 0.9 (Ref Range: 0-4 %) Basophils Percent Auto 0.8 (Ref Range: 0-2 %) 0.7 (Ref Range: 0-2 %) 0.9 (Ref Range: 0-2 %) NRBC Pct Auto 0.0 (Ref Range: 0.0-0.2 /100WBC) 0.0 (Ref Range: 0.0-0.2 /100WBC) 0.0 (Ref Range: 0.0-0.2 /100WBC) Neutrophils Absolute Auto 2.2 (Ref Range: 2.0-8.3 x10*3/uL) 2.3 (Ref Range: 2.0-8.3 x10*3/uL) 1.5 L (Ref Range: 2.0-8.3 x10*3/uL) Imm Gran Abs Auto 0.01 (Ref Range: 0.00-0.03 X10*3/uL) 0.01 (Ref Range: 0.00-0.03 X10*3/uL) 0.01 (Ref Range: 0.00-0.03 X10*3/uL) Lymphocytes Absolute Auto 2.1 (Ref Range: 1.2-4.9 X10*3/uL) 1.6 (Ref Range: 1.2-4.9 X10*3/uL) 1.5 (Ref Range: 1.2-4.9 X10*3/uL) Monocytes Absolute Auto 0.4 (Ref Range: 0.1-1.2 X10*3/uL) 0.3 (Ref Range: 0.1-1.2 X10*3/uL) 0.3 (Ref Range: 0.1-1.2 X10*3/uL) Eosinophils Absolute Auto 0.0 (Ref Range: 0.0-0.4 X10*3/uL) 0.0 (Ref Range: 0.0-0.4 X10*3/uL) 0.0 (Ref Range: 0.0-0.4 X10*3/uL) Basophils Absolute Auto 0.0 (Ref Range: 0.0-0.2 X10*3/uL) 0.0 (Ref Range: 0.0-0.2 X10*3/uL) 0.0 (Ref Range: 0.0-0.2 X10*3/uL) NRBC Abs Auto 0.000 (Ref Range: 0.0-0.012 X10*3/uL) 0.000 (Ref Range: 0.0-0.012 X10*3/uL) 0.000 (Ref Range: 0.0-0.012 X10*3/uL) * Examination: G eneral Examination: GENERAL APPEARANCE: p leasant, well nourished, well developed, in no acute distress, calm and relaxed, overweight, woman. HEAD: a traumatic, normocephalic. EYES: e [...] LUNGS: c lear to auscultation . BREASTS: no masses palpable bilaterally. ABDOMEN: b owel sounds normal, no ascites, no organomegaly, no mass, overweight. RECTAL EXAM: n ot examined. MUSCULOSKELETAL: e xtremities unremarkable, no clubbing, cyanosis or edema. PERIPHERAL PULSES: n ormal. NEUROLOGIC: a lert and oriented, cranial nerves 2-12 grossly intact, deep tendon reflexes 2+ symmetrical, motor strength normal upper and lower extremities, sensory exam intact. PSYCH: a lert, oriented. Assessment: * Assessment: 1. L eukopenia, unspecified type - D72.819 (Primary) N otes :Her white blood cell count has improved to 4700 with a normal differential. The white blood cell count fluctuates. There is no evolution into the maturation defect syndrome. She has had no serious infections. She will have a white cell count in 6 months. 2 . O verweight - E66.3 N otes :Her body mass index is 28. She has gained 3 pounds. We discussed diet and nutrition today. 3 [...] done * Follow Up: 6 Months (Reason: ov review labs) * Images: * Sign off status: Completed true * Provider: Sarita Gaona MD Date: 0 05/05/2024 Generated for Nyasia soto/Ayleen/Martaitting on: 03/25/2024 04:47 PM EST History and Physical Notes * HPI (History of Present Illness) Category Sub-Category Detail Notes COVID-19 Screening Questions Have you had any new onset fever, chills, cough, congestion, sore throat, shortness of breath, muscle aches?: No Examination Category Sub-Category Detail Notes General Examination GENERAL APPEARANCE: pleasant , well nourished, well developed, in no acute distress, calm and relaxed, overweight, woman HEAD: atraumatic, normocep halic EYES: eomi, perrla, anicte alan, conjugate EARS: normal NOSE: septum intact NECK/THYROID: no jugular venous di stention, no carotid bruit, thyroid normal HEART: no clicks, gallops, murmurs, or rubs, regular rhythm, S1, S2 normal, no s3, or vascular bruits LUNGS: clear to auscultatio n ABDOMEN: bowel sounds normal, no ascites, no organomegaly, no mass, overweight NEUROLOGIC: alert and oriented, cranial nerves 2-12 grossly intact, deep tendon reflexes 2+ symmetrical, motor strength normal upper and lower extremities, sensory exam intact SKIN: no suspicious lesion s, anicteric PERIPHERAL PULSES: normal BREASTS: no masses palpable b ilaterally MUSCULOSKELETAL: extremities unremark able, no clubbing, cyanosis or edema LYMPH NODES: no enlarged lymph no suzanna,spleen normal RECTAL EXAM: not examined PSYCH: alert, oriented ORAL CAVITY: normal, unremarkable
--- OUTSIDE RECORDS SUMMARY | 2024-11-04 12:00 | XMS_ITS ---
Author Organization Ronnie Gaona III, MD Address [address] [place] [address] [place] [address] Care Team Providers Care Advisor Consultant Name Role Phone Charlene Raya ([place]) Primary Care Provider Un available Dr. Ronnie Gaona III [facility] Allergies Allergen (clinical drug ingredient) Drug/Non Drug Allergy documented on EMR Reaction Allergy Type Onset Date Status Sulfacet-R Unknown Drug Allergy Active Penicillin G Benzathine Unknown Drug Allergy Active sulfamethoxazole / trimethoprim Bactrim Unknown Drug Allergy Active REASON FOR VISIT Follow up Medications Medication SIG (Take, Route, Fr equency, Duration) Notes Start Date End Date Status traZODone HCl 50 MG Oral Active Melatonin Active Omeprazole 40 MG Oral Act dani Social History Tobacco Use: Social History Observation Description Date Details (start date - stop date) Never Smoker NA - NA Tobacco Use/Smoking Question Answer Notes Patient is a nonsmoker Additional Findings: Tobacco Non-User Aggressive non-smoker Encounters Encounter Location Date Provider Diagnosis Ronnie Gaona III, MD [address] [place] [address] [place] [address] 11/04/2024 Ronnie Gaona Leukopenia, unspecified type D72.819 Assessments Encounter Date Diagnosis (ICD Code) Assessment Notes Treatment Notes Treatment Clinical Notes 11/04/2024 Leukopenia, unspecified type (ICD-10 - D72.819) Her white blood cell count has improved to 4700 with a normal differential. The white blood cell count fluctuates. There is no evolution into the maturation defect syndrome. She has had no serious infections. She will have a white cell count in 6 months. Plan Of Treatment Medication Medication Name Sig Start Date Stop Date Notes traZODone HCl 50 MG Oral Melatonin Omeprazole 40 MG Oral Next Appt Details Provider Name:Ronnie Gaona , 11/18/2025 03:30:00 PM, [address] [place] [address] DRREGLA, TRINI SOSA, [address], Progress Notes * Ovi CHAPARROB:[birth year] (59 yo F)Acc No.[id number]:11/04/2024 Progress Notes Patient: Vinicius BIRD Provider: Sarita Gaona MD :1965 A ge:59 Y S ex:Female Date:11/04/2024 Address:[address] [place], [place] [id number] Pcp:Charlene Raya ([place]) Subjective: * Chief Complaints: * 1 . Follow up. * HPI: C OVID-19 Screening: Questions H ave you had any new [...] Depressed mood d enies. * Medical History: L eukopenia, Hyperlipidemia, acalculous cholecystitis November 2004, Uterine fibroids, Hiatal hernia and reflux. 1996, Left ovarian cyst, Syncopal episode is 38, Appendectomy age 18, Tibial biopsied in childhood, Allergic rhinitis, Palpitations, fraternal twins, Overweight. * Surgical History: h ysterectomy 2014, partial colonoscopy to 40 cm, [facility], Dr. Ronnie Rodriguez, negative 2017, endometrial biopsy, Dr. Whipple, negative findings 2013, laparoscopic cholecystectomy, Dr. Busby, acalculous cholecystitis 2004, dental extractions, for multiple loose, no bleeding 1988, fractured left leg 01/2019, Upper endoscopy 05/2022. * Hospitalization/Major Diagno stic Procedure: D enies Past Hospitalization. * Family History: F ather: 87 yrs, [...] ggressive non-smoker S he was born and [place], [place]. She has been to Arnel for 22 years and they have 2 healthy children. 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 * Medications: T aking Melatonin , Taking Omeprazole 40 MG Capsule Delayed Release Oral , Taking traZODone HCl 50 MG Tablet Oral , Medication List reviewed and reconciled with the patient * Allergies: P enicillin G Benzathine, Sulfacet-R, Bactrim. Objective: * Vitals: * Examination: G eneral Examination: GENERAL APPEARANCE: p kamila, well nourished, well developed, in no acute distress, calm and relaxed. HEAD: a traumatic, normocephalic. EYES: e ramesh, [...] 1. L eukopenia, unspecified type - D72.819 N otes :Her white blood cell count has improved to 4700 with a normal differential. The white blood cell count fluctuates. There is no evolution into the maturation defect syndrome. She has had no serious infections. She will have a white cell count in 6 months. Plan: * Treatment: * Images: * The named appointment provid er may or may not be the originator of this progress note, and it is not deemed complete until electronically signed by the appointment provider. Sign off status: Pending * Provider: Sarita Gaona MD Date: 0 11/04/2024 Generated for Nyasia soto/Ayleen/Martaitting on: 03/25/2024 04:47 [...] in no acute distress, calm and relaxed HEAD: atraumatic, normocep halic EYES: eomi, perrla, [...]
--- OUTSIDE RECORDS SUMMARY | 2024-11-18 10:30 | XMS_ITS ---
Author Organization Ronnie Gaona III, MD Address [address] [place] [address] Care Team Providers Care Dry Box Operator Name Role Phone Charlene Raay ([place]) Primary Care Provider Un available Dr. Ronnie Gaona III Unavailable Allergies Allergen (clinical drug ingredient) [...] non-smoker Vital Signs Temperature 97.9 degrees Fahrenheit 11/19/19 25 Blood pressure systolic 138 mm Hg 11/19/19 25 Blood pressure diastolic 81 mm Hg 025 Heart Rate 84 /min 11/18/2024 Height 65 in 11/18/2024 Weight 163 lbs 11/18/2024 BMI 27.12 kg/m2 11/18/2024 Encounters Encounter Location Date Provider Diagnosis Ronnie Gaona III, MD [address] [place] [address] [place] [address] 11/18/2024 Ronnie Gaona Leukopenia, unspecified type D72.819 and Overweight E66.3 Assessments Encounter Date Diagnosis (ICD Code) Assessment Notes Treatment Notes Treatment Clinical Notes 11/18/2024 Leukopenia, unspecified type (ICD-10 - D72.819) Her white blood cell count has improved to 4700 with a normal differential. The white blood cell count fluctuates. There is no evolution into the maturation defect syndrome. She has had no serious infections. She will have a white cell count in 6 months. 11/18/2024 Overweight (ICD-10 - E66.3) We have discussed her diet and nutrition. We made a plan to lose weight at a rate of one half of a pound per week. Plan Of Treatment Medication Medication Name Sig Start Date Stop Date Notes traZODone HCl 50 MG Oral Melatonin Omeprazole 40 MG Oral Pending Test Test Name Order Date PROFILE, RANDOM (COMPREHENSIVE METABOLIC ) 11/18/2024 CBC w DIFF 11/18/2024 Next Appt Details Follow Up: 1 Year, Reason: O V Provider Name:Ronnie Gaona , 11/18/2025 03:30:00 PM, [address] [place] [address] [address] [place] [address], [place], [address], Progress Notes * Ovi CHAPARROB:[birth year] (59 yo F)Acc No.[id number]:11/18/2024 Progress Notes Patient: Vinicius BIRD Provider: Sarita Gaona MD :1965 A ge:59 Y S ex:Female Date:11/18/2024 Address:[address] [place], [place] [phone] Pcp:Charlene Raya ([place]) Subjective: * Chief Complaints: * L eukocytopeniaAllergic rhinitis * HPI: C OVID-19 Screening: She returns for routine follow-up of her low white blood cell count. The current CBC shows a white blood cell count that is in the normal range. Since her last visit she has had no episodes of infection. She seemed healthy and well today. We discussed the likelihood that her low white blood cell count is normal for her. She will be seen back in 6 months. She was asked to notify me once a she has any significant infections. Questions H ave you had any new [...] h ysterectomy 2015partial colonoscopy to 40 cm, [facility], Dr. Ronnie Rodriguez, negative 2018endometrial biopsy, Dr. [...] ggressive non-smoker S he was born and [place], [place]. She has been to Arnel for 22 years and they have 2 healthy children. 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 * Medications: T akingMelatonin Omeprazole 40 [...] Objective: * Vitals: H t: 65, Wt: 163, BMI:27.12, BP: 138/81, HR: 84, Temp: 97.9, Wt-k.94. * Examination: G eneral Examination: GENERAL APPEARANCE: p leasant, well nourished, well developed, in no acute distress, calm and relaxed: overweight: woman. HEAD: a traumatic, normocephalic. EYES: e [...] LUNGS: c lear to auscultation . BREASTS: N ot examined. ABDOMEN: b owel sounds normal, no ascites, no organomegaly, no mass: overweight. RECTAL EXAM: n ot examined. MUSCULOSKELETAL: [...] . O verweight - E66.3 N otes :We have discussed her diet and nutrition. We made a plan to lose weight at a rate of one half of a pound per week. Plan: * Treatment: 2. O verweight L AB: PROFILE, RANDOM (COMPREHENSIVE METABOLIC) L AB: CBC w DIFF * Procedure Codes: * Preventive Medicine: Counseling: [...] Other reason not done * Follow Up: 1 Year (Reason: OV) * Images: * Sign off status: Completed true * Provider: Sarita Gaona MD Date: Generated for Nyasia soto/Ayleen/Martaitting on: 03/25/2024 04:47 [...] developed, in no acute distress, calm and relaxed: overweight: woman HEAD: atraumatic, normocep halic EYES: eomi, perrla, anicte alan, conjugate EARS: normal NOSE: septum intact NECK/THYROID: no jugular venous di stention, no carotid bruit, thyroid normal HEART: no clicks, gallops, murmurs, or rubs, regular rhythm, S1, S2 normal, no s3, or vascular bruits LUNGS: clear to auscultatio n ABDOMEN: bowel sounds normal, no ascites, no organomegaly, no mass: overweight NEUROLOGIC: alert and oriented, cranial nerves 2-12 grossly intact, deep tendon reflexes 2+ symmetrical, motor strength normal upper and lower extremities, sensory exam intact SKIN: no suspicious lesion s, anicteric PERIPHERAL PULSES: normal BREASTS: Not examined MUSCULOSKELETAL: extremities unremark able, no clubbing, cyanosis or edema LYMPH NODES: no enlarged lymph no suzanna,spleen normal RECTAL EXAM: not examined PSYCH: alert, oriented ORAL CAVITY: normal, unremarkable
--- NOTE | 2025-01-22 13:05 | A.OFFVIS_ITS ---
VS Expanded 01/22/25 13:09 Height 5 ft 5 in Weight 155 lb BMI 25.8 Intake Visit Reasons: mixed hyperlipidemia Allergies Penicillins (PENICILLINS) Allergy (Severe, Verified 09/18/24 11:04) ANAPHYLAXIS sulfamethoxazole (From Bactrim) Allergy (Intermediate, Verified 09/18/24 11:04) rash trimethoprim (From Bactrim) Allergy (Intermediate, Verified 09/18/24 11:04) rash Nutrition Presentation Details: Pt presents for MNT for hyperlipidemia Pt reports doing well, feeling comfortable with dietary modifications already made, mindfully reducing on higher fat food options. BS Monitoring Most Recent Diabetes Results: Creatinine, (0.5-1.4) 1.00 mg/dL 08/21/24 BUN, (9-16) 12 mg/dL 08/21/24 Sodium, (135-145) 141 mmol/L 08/21/24 Potassium, (3.3-5.1) 4.1 mmol/L 08/21/24 Chloride, (96-108) 108 mmol/L 08/21/24 Carbon Dioxide, (22-29) 25 mmol/L 08/21/24 Calcium, (8.4-10.2) 8.6 mg/dL Δ 08/21/24 WCT-Hrtcunk-Kd.Jeor Equation Height: 5 ft 5 in Weight: 155 lb Resting Metabolic Rate: 1292.80 Calculated Activity Level: Mild Activity Calories Needed to Maintain Weight: 1777.60 [facility] Medical History COVID-19 vaccine administered History of palpitations Family history of adverse effect to anesthesia History of postoperative nausea and vomiting History of diverticulosis History of endometrial biopsy Diverticula of intestine Surgical History H/O colonoscopy H/O: History of cholecystectomy Hx of appendectomy H/O: hysterectomy Family History Mother Diverticulosis HTN (hypertension) Father HTN (hypertension) Brother HTN (hypertension) Social History Household Members: Spouse and Children Housing: House Are you a primary neonatal intensive care nurse to a significant other at home: No Do you presently have visiting nurse or other home services: No Alcohol intake: current Alcohol intake frequency: holidays/special occasions only Patient Tobacco Use Status: Never used Tobacco e-Cigarette/Vaping Use: Never Used service: No Current occupational status: employed 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 Gender identity: Female Cognitive needs: No Hearing needs: No Vision needs: Yes (rx glaasses) Female Reproductive History Menstrual Age of Menarche: 16 Assessment & Plan Assessment & Plan (1) Mixed hyperlipidemia: Code(s): E78.2 - Mixed hyperlipidemia Category: Medical Plan: Wt: 79 Kg ( 09/29 ), 74kg(11/29), 70 kg(01/29) Est kcal needs as per MSJ: 1800 (40% carb, 30% protein/fat) Est fluid needs as per 25-30 ml/d: 2100 Est prot per day as per 1 g/kg bw: 70-80 Recommend fiber intake : 8-10 g per day and gradually increase to 25-28 g per day for women and 35-38 g for men or as tolerated Recommend sodium intake per day : less than 2300 mg Educated patient on: ( R = reviewed V = verbalizes understanding N/R = needs review N/A = not applicable * Food sources of carbohydrate, adequate serving sizes and its role in various health conditions: R * Differences between complex carbohydrates a simple carbohydrates, role of fiber in diet: R * Lean protein sources of foods: R * Differences between types of fats and role in diet (mono on saturated fat fatty acids, saturated fatty acids, trans fats): R * Food sources of sodium in salt and healthy modifications for heart health in kidney health: R V R/V * Vitamins and minerals: R * Healthy plate method concept: R * Physical activity: Benefits a precaution: R Patient Instructions: Follow healthy plate method keep hydrated, choose water with meals/snacks engage in physical activity goal 150 minutes/week Coding Level of Care Code Nutr Indiv Subseq (55263) Diagnoses Mixed hyperlipidemia E78.2 Time Spent (min) 30
[2025-01-22 13:09] VITALS: BMI 25.8
[2025-01-22 14:19] VITALS: BMI 25.8
--- OUTSIDE RECORDS SUMMARY | 2025-01-22 16:48 | XMS_ITS | Patient Health Record ---
Author Organization Ronnie Gaona III, MD Address [address] [place] [address] Care Team Providers Care Senior Internet Sales Consultant Name Role Phone ReyMay Charlene (Bridgeton) Primary Care Provider Un available Dr. Ronnie Gaona III Unavailable [phone] Allergies Allergen (clinical drug ingredient) Drug/Non Drug Allergy documented on EMR Reaction Allergy Type Onset Date Status Sulfacet-R Unknown Drug Allergy Active Penicillin G Benzathine Unknown Drug Allergy Active sulfamethoxazole / trimethoprim Bactrim Unknown Drug Allergy Active Results Component Value Reference Range Notes Complete Blood Count Auto Di ff Reviewed date:05/03/2024 07:54:57 AM Interpretation: Performing Lab:[facility], [address] [place] [address] Notes/Report: White Blood Count 4.7 4.8-10.8 X10*3/uL [...] date:07/13/2024 09:33:41 AM Interpretation: Performing Lab: Notes/Report: [facility] [address] [place] [address] Mammography Report Signed Patient: Vinicius Chaparro MR#: [id number] : 1965 Acct:[id number] Age/Sex: 59 / F ADM Date: 07/07/24 Loc: HO.MAMMO Attending Dr: Ronnie Gaona MD Ordering Physician: Ronnie Gaona MD Results: 1Negativ e Date of Service: 07/07/24 Follow Up: 1 Year From Orig ina Mammogram Procedure(s): MM tomosynthesis screening BI Accession Number(s): [id number] cc: Ronnie Gaona MD; Kenny De La [...] Daysi Yuen DO in OV> 07/12/242151 DD/ 29 TD/TT: 07/07/24 153 Corporate Controller: [place] [facility] [address] [place] [address] Mammography Report Signed Patient: Vinicius De La Garza MR#: [id number] : 1965 Acct:[id number] Age/Sex: 59 / F ADM Date: 07/07/24 Loc: HO.MAMMO Attending Dr: Ronnie Gaona MD Ordering Physician: Ronnie Gaona MD Results: 1Negativ e Date of Service: 04/01 Follow Up: 1 [facility] From [facility] Mammogram Procedure(s): MM azucena osynthesis screening BI Accession Number(s): [id number] cc: Ronnie Gaona MD; Kenny De La [...] OV> 07/12/242151 DD/ 1530 TD/TT: 07/07/24 1539 Corporate Controller: CT chest wo/w con Reviewed date:09/06/2024 07:16:48 PM Interpretation: Performing Lab: Notes/Report: [address] [address] [address] Scan Report Signed Patient: Vinicius Chaparro MR#: [id number] : 1965 Acct:[id number] Age/Sex: 59 / F ADM Date: 08/25/24 Loc: HO.CT Attending Dr: Memo Monique MD Ordering Physician: Memo Monique MD Date of Service: 08/25/24 Procedure(s): CT chest wo/w IV con Accession Number(s): [id number] cc: Ronnie Gaona MD; Memo Monique MD Report Number: [id number]: Total DLP = 234.00 mGy-cm CLINICAL HISTORY: [...] in OV> 08/25/24 1526 DD/ 1524 TD/TT: 08/25/241523 Corporate Controller: [address] [address] [address] Scan Report Signed Patient: Vinicius De La Garza MR#: [id number] : 1965 Acct:[id number] Age/Sex: 59 / F ADM Date: 08/25/24 Loc: HO.CT Attending Dr: Memo Monique MD Ordering Physician: Memo Monique MD Date of Service: 08/25/24 Procedure(s): CT aida st wo/w IV con Accession Number(s): [id number] cc: Ronnie Gaona MD; Memo Monique MD [...] OV> 08/25/24 1526 DD/ 1524 TD/TT: 08/25/24 152 Corporate Controller: Complete Blood Count Auto Di ff Reviewed date:11/21/2024 05:02:44 PM Interpretation: Performing Lab:[facility], [address] [place] [phone] Notes/Report: White Blood Count 5.2 4.8-10.8 X10*3/uL [...] Problem Status W/U Status Risk Notes Problem 220197054 Overweight (E66.3) Active confirmed We have discussed her diet and nutrition. We made a plan to lose weight at a rate of one half of a pound per week. Problem 08802879 Palpitations (R00.2) Active confirmed She has had no palpitations. Since her last visit. Her cardiac examination today was normal. Problem 26492790 Leukopenia, unspecified type (D72.819) Active confirmed Her white blood cell count has improved to 4700 with a normal differential. The white blood cell count fluctuates. There is no evolution into the maturation defect syndrome. She has had no serious infections. She will have a white cell count in 6 months. Problem 18639945 Non-seasonal allergic rhinitis, unspecified trigger (J30.89) Active confirmed She is doing well on current medications and no changes necessary. Vital Signs Heart Rate 84 /min 11/18/2024 Temperature 97.9 degrees Fahrenheit 11/18/2024 Blood pressure diastolic 81 mm Hg 11/18/2024 Height 65 in 11/18/2024 Blood pressure systolic 138 mm Hg 11/18/2024 Weight 163 lbs 11/18/2024 BMI 27.12 kg/m2 11/18/2024 Encounters Encounter Location Date Provider Diagnosis Ronnie Gaona III, MD [address] [place] [address] [place] [address] 05/05/2024 Ronnie Gaona Leukopenia, unspecified type D72.819 ; Overweight E66.3 ; Palpitations R00.2 and Non-seasonal allergic rhinitis, unspecified trigger J30.89 Ronnie Gaona III, MD [address] [place] [address] [place] [address] 11/18/2024 Ronnie Gaona Leukopenia, unspecified type D72.819 [...] one half of a pound per week. 11/18/2024 Leukopenia, unspecified type (ICD-10 - D72.819) [...] ) 01/06/2021 PROFILE, RANDOM (COMPREHENSIVE METABOLIC ) 11/18/2024 PROFILE, RANDOM (COMPREHENSIVE METABOLIC ) 02/20/2023 PROFILE, RANDOM (COMPREHENSIVE METABOLIC ) 02/01/2021 PROFILE, RANDOM (COMPREHENSIVE METABOLIC ) 08/03/2020 CBC w DIFF 08/14/2023 CBC w DIFF 12/09/2018 CBC w DIFF 08/02/2021 CBC w DIFF 05/05/2024 CBC w DIFF 02/14/2022 CBC w DIFF 01/06/2021 CBC w DIFF 04/21/2019 CBC w DIFF 11/18/2024 CBC w DIFF 02/01/2021 CBC with MANUAL DIFFERENTIAL 01/20/2019 CBC w/o DIFF 08/03/2020 CBC WITH AUTO DIFF 11/05/2023 CBC WITH AUTO DIFF 02/20/2023 Next Appt Details Provider Name:Ronnie Gaona , 11/18/2025 03:30:00 PM, [address] [place] [address] [address] [place], [place], [address], Insurance Providers Payer Name Payer Address Payer Phone Subscriber Number Group Number Insured Name Patient Relationship to Insured Coverage Start Date Coverage End Date [employer] of [place] [address] [address] [place] [address] [phone] [id number] 1 Couture Vinicius Erickson Self - patient [...] findings 2013 partial colonoscopy to 40 cm, [facility], Dr. Sarita Rodriguez, negative 2017 hysterectomy 2014
== END 2025-01-22 15:29 | disposition home or self-care (01) ==
LOC: HO.ENCR 12:54
PROVIDERS: PCP Internal Medicine Medical Oncology; Visit Provider Dietitian, Registered
DX: E78.2 Mixed hyperlipidemia (principal)

== ENCOUNTER → 2025-01-22 12:54 | Outpatient (BNVA) | payer OTHER, SELFPAY | PROVIDERS: PCP Internal Medicine Medical Oncology; Visit Provider Dietitian, Registered | DX: E78.2 Mixed hyperlipidemia (principal); Z71.3 Dietary counseling and surveillance | CPT/HCPCS: 97803 ==